=== PATIENT | female | born 1965 | race American Indian/Alaskan Native ===

== ENCOUNTER 2016-07-24 17:06 | Emergency (ER) | payer MEDICAID ==
[2016-07-24 18:21] LABS: Basophils % (Auto) 0.8 % (0.0-1.8); Eosinophils % (Auto) 2.5 % (0.0-4.3); Mean Corpuscular HGB Conc 31 % (30-34); Mean Corpuscular Volume 77 fl (79-97); Platelet Count 243 K/mm3 (140-440); Red Blood Count 5.36 M/mm3 (3.65-5.03); Red Cell Distribution Width 16.7 % (13.2-15.2); White Blood Count 7.3 K/mm3 (4.5-11.0)
[2016-07-24 18:29] LABS: Anion Gap 16 mmol/L; BUN/Creatinine Ratio 12.22; Blood Urea Nitrogen 11 mg/dL (7-17); Calcium 9.8 mg/dL (8.4-10.2); Carbon Dioxide 25 mmol/L (22-30); Chloride 102.5 mmol/L (98-107); Glucose 130 mg/dL (65-100); Potassium 4.6 mmol/L (3.6-5.0); Sodium 139 mmol/L (137-145)
[2016-07-24 18:32] LABS: Hematocrit 41.3 % (30.3-42.9); Hemoglobin 12.7 gm/dl (10.1-14.3); Mean Corpuscular Hemoglobin 24 pg (28-32)
[2016-07-24 18:33] LABS: Alanine Aminotransferase 29 units/L (7-56); Albumin 4.3 g/dL (3.9-5); Albumin/Globulin Ratio 1.3 %; Alkaline Phosphatase 62 units/L (35-129); Bilirubin,Total 0.2 mg/dL (0.1-1.2); Total Protein 7.6 g/dL (6.3-8.2)
[2016-07-24 19:04] LABS: Bilirubin,Direct < 0.2 mg/dL (0-0.2)
--- NOTE | 2016-07-25 07:23 | XRay Report ---
AP CHEST: HISTORY: chest pain AP view of the chest demonstrates a normal mediastinal and cardiac contour with clear lungs and normal bony and soft tissue structures. IMPRESSION: Unremarkable AP chest. No significant change since 01/25/14.
[2016-07-25] MEDS ORDERED: PERCOCET 5/325 PO ONE (07:47)
--- NOTE | 2016-07-25 07:51 | Emergency Department Report ---
ED General Adult HPI - General Chief complaint: Chest Pain Stated complaint: CHF/CHEST PAIN/LOW BP/LIVER TROUBLE Time Seen by Provider: 07/25/16 07:37 Source: patient Mode of arrival: Ambulatory Limitations: No Limitations - History of Present Illness Initial comments: 51-year-old female presents to the emergency department complaining of chest pain. Patient states that she went to her pain doctor yesterday and was told her blood pressure was low. She states her blood pressure was 100/33. She states they rechecked it a short time later and her systolic was 126. She received an injection in her SI joint. She states that her pain doctor called her that her eyes were yellow and she becomes emergency department. Patient states she began having some pain in the upper right part of her chest. Pain is described as sharp. Pain does not radiate. Patient denies associated symptoms. Patient is currently complaining of generalized pain. She states she has not had any of her nighttime or morning medications due to being in the emergency department. There are no other complaints. -: Gradual, days(s) (1) Location: chest, right Radiation: non-radiation Severity scale (0 -10): 7 Quality: aching Consistency: constant Improves with: none Worsens with: none Associated Symptoms: denies other symptoms Treatments Prior to Arrival: none - Related Data Home Medications Medication Instructions Recorded Confirmed Last Taken ALPRAZolam [Xanax TAB] 1 tab PO BID 06/15/13 10/18/15 10/17/15 Amlodipine Besylate [Norvasc] 10 mg PO DAILY 06/15/13 10/18/15 10/18/15 07:00 Carvedilol [Coreg] 6.25 tab PO BID 06/15/13 10/18/15 10/18/15 07:00 Gabapentin [Neurontin] 600 mg PO BID 06/15/13 10/18/15 10/17/15 [place] Carbonate 1 tab PO BID 06/15/13 10/18/15 10/18/15 07:00 Losartan [Cozaar] 1 tab PO DAILY 06/15/13 10/18/15 10/18/15 07:00 QUEtiapine [SEROquel] 400 mg PO DAILY 06/15/13 10/18/15 10/17/15 Topiramate [Topamax TAB] 100 mg PO DAILY 0210/18/15 10/18/15 07:00 oxyCODONE /ACETAMINOPHEN [Percocet 1 tab PO PRN 06/15/13 10/18/15 10/17/15 5/325 mg] Albuterol Sulfate [Proventil HFA] 1 puff INHALATION PRN 07/03/13 10/18/15 11:50 Aspirin [Aspirin BABY CHEW TAB] 1 tab PO DAILY 07/03/13 10/18/15 2 Weeks Ago Furosemide 1 tab PO DAILY 07/03/13 10/18/15 10/18/15 07:00 Lisinopril 1 tab PO DAILY 07/03/13 10/18/15 10/18/15 07:00 Potassium Chloride [K-Dur] 1 tab PO DAILY 07/03/13 10/18/15 10/18/15 07:00 Cetirizine HCl [ZyrTEC] 10 mg PO QDAY 10/18/15 10/18/15 10/17/15 Fluticasone [Flonase] 1 spray NS QDAY 10/18/15 10/18/15 10/18/15 07:00 Loratadine [Claritin] 10 mg PO DAILY 10/18/15 10/18/15 10/17/15 Meloxicam 1 tab PO QDAY 10/18/15 10/18/15 10/17/15 Omeprazole (Nf) [PriLOSEC (Nf)] 1 tab PO QDAY 10/18/15 10/18/15 10/17/15 Ranitidine HCl [Zantac 150 MG TAB] 150 mg PO QDAY 10/18/15 10/18/15 10/17/15 Sertraline [Zoloft] 100 mg PO QDAY 10/18/15 10/18/15 10/18/15 07:00 Allergies Allergy/AdvReac Type Severity Reaction Status Date / Time azithromycin Allergy Shortness Verified 10/18/15 08:54 of Breath meloxicam Allergy Rash Verified 07/24/16 17:20 cephalexin monohydrate AdvReac Itching Verified 06/16/13 07:40 [From Keflex] pregabalin [From Lyrica] AdvReac Unknown Verified 07/03/13 15:26 shellfish derived AdvReac GI UPSET Verified 06/16/13 07:40 Sulfa (Sulfonamide AdvReac Itching Verified 06/16/13 07:40 Antibiotics) tomato [Tomato] AdvReac Unknown Verified 06/16/13 07:40 ED Review of Systems ROS: Stated complaint: CHF/CHEST PAIN/LOW BP/LIVER TROUBLE Other details as noted in HPI Comment: All other systems reviewed and negative Cardiovascular: chest pain ED Past Medical Hx - Past Medical History Previous Medical History?: Yes Hx Hypertension: Yes (1992) Hx Heart Attack/AMI: Yes () Hx Congestive Heart Failure: Yes Hx Diabetes: Yes Hx GERD: Yes Hx Liver Disease: No Hx Renal Disease: No Hx Arthritis: Yes Hx Asthma: Yes (use inhaler daily) Hx COPD: Yes - Surgical History Hx Coronary Stent: Yes (2002) - Family History Family history: no significant - Social History Smoking Status: Never Smoker Substance Use Type: None - Medications Home Medications: Home Medications Medication Instructions Recorded Confirmed Last Taken Type ALPRAZolam [Xanax TAB] 1 tab PO BID 06/15/13 10/18/15 10/17/15 History Amlodipine Besylate [Norvasc] 10 mg PO DAILY 06/15/13 10/18/15 10/18/15 07:00 History Carvedilol [Coreg] 6.25 tab PO BID 06/15/13 10/18/15 10/18/15 07:00 History Gabapentin [Neurontin] 600 mg PO BID 06/15/13 10/18/15 10/17/15 History [place] Carbonate 1 tab PO BID 06/15/13 10/18/15 10/18/15 07:00 History Losartan [Cozaar] 1 tab PO DAILY 06/15/13 10/18/15 10/18/15 07:00 History QUEtiapine [SEROquel] 400 mg PO DAILY 06/15/13 10/18/15 10/17/15 History Topiramate [Topamax TAB] 100 mg PO DAILY 06/15/13 10/18/15 10/18/15 07:00 History oxyCODONE /ACETAMINOPHEN [Percocet 1 tab PO PRN 06/15/13 10/18/15 10/17/15 History 5/325 mg] Albuterol Sulfate [Proventil HFA] 1 puff INHALATION PRN 07/03/13 10/18/15 11:50 History Aspirin [Aspirin BABY CHEW TAB] 1 tab PO DAILY 07/03/13 10/18/15 2 Weeks Ago History Furosemide 1 tab PO DAILY 07/03/13 10/18/15 10/18/15 07:00 History Lisinopril 1 tab PO DAILY 07/03/13 10/18/15 10/18/15 07:00 History Potassium Chloride [K-Dur] 1 tab PO DAILY 07/03/13 10/18/15 10/18/15 07:00 History Cetirizine HCl [ZyrTEC] 10 mg PO QDAY 10/18/15 10/18/15 10/17/15 History Fluticasone [Flonase] 1 spray NS QDAY 10/18/15 10/18/15 10/18/15 07:00 History Loratadine [Claritin] 10 mg PO DAILY 10/18/15 10/18/15 10/17/15 History Meloxicam 1 tab PO QDAY 10/18/15 10/18/15 10/17/15 History Omeprazole (Nf) [PriLOSEC (Nf)] 1 tab PO QDAY 10/18/15 10/18/15 10/17/15 History Ranitidine HCl [Zantac 150 MG TAB] 150 mg PO QDAY 10/18/15 10/18/15 10/17/15 History Sertraline [Zoloft] 100 mg PO QDAY 10/18/15 10/18/15 10/18/15 07:00 History ED Physical Exam - General Limitations: No Limitations General appearance: alert, in no apparent distress - Head Head exam: Present: atraumatic, normocephalic - Eye Eye exam: Present: normal appearance, PERRL, EOMI. Absent: scleral icterus - ENT ENT exam: Present: normal exam, normal orophraynx, mucous membranes moist - Neck Neck exam: Present: normal inspection, full ROM. Absent: tenderness - Respiratory Respiratory exam: Present: normal lung sounds bilaterally. Absent: respiratory distress, chest wall tenderness - Cardiovascular Cardiovascular Exam: Present: regular rate, normal rhythm, normal heart sounds - GI/Abdominal GI/Abdominal exam: Present: soft, normal bowel sounds. Absent: distended, tenderness - Extremities Exam Extremities exam: Present: normal inspection, full ROM. Absent: tenderness - Back Exam Back exam: Present: normal inspection, full ROM. Absent: tenderness - Neurological Exam Neurological exam: Present: alert, oriented X3. Absent: motor sensory deficit - Skin Skin exam: Present: warm, dry, intact ED Course Vital Signs 07/24/16 07/25/16 07/25/16 17:21 00:01 08:10 Temperature 98.6 F 98.7 F Pulse Rate 83 93 H 75 Respiratory 20 14 18 Rate Blood Pressure 126/76 128/76 Blood Pressure 128/82 [Left] O2 Sat by Pulse 96 99 100 Oximetry ED Medical Decision Making - Lab Data Result diagrams: 07/24/16 17:57 07/24/16 17:57 - EKG Data -: EKG Interpreted by Tx EKG shows normal: sinus rhythm, axis, intervals, QRS complexes, ST-T waves Rate: normal - EKG Data When compared to previous EKG there are: previous EKG unavailable Interpretation: normal EKG - Radiology Data Radiology results: report reviewed, image reviewed Chest x-ray is read as no acute cardiopulmonary abnormality. - Medical Decision Making Lab and imaging results reviewed and discussed with the patient. I've spoken with Dr. Scott, cardiology. Patient has had a normal EKG and 2 negative troponins. Patient will be discharged home to follow up with her sas developer. - Differential Diagnosis atypical chest pain, ACS, chest wall pain Critical care attestation.: If time is entered above; I have spent that time in minutes in the direct care of this critically ill patient, excluding procedure time. ED Disposition Clinical Impression: Non-cardiac chest pain Disposition: DISCHARGED TO HOME OR SELFCARE Is pt being admited?: No Condition: Stable Instructions: Chest Pain (ED) Referrals: RACHEL CAREY MD [Primary Care Provider] - 3-5 Days Time of Disposition: 08:15
[2016-07-25 08:13] VITALS: BP 128/82
== END 2016-07-25 08:54 | disposition home or self-care (01) ==
LOC: ED 17:06
DX: R07.9 Chest pain, unspecified (principal); I25.2 Old myocardial infarction; E11.9 Type 2 diabetes mellitus without complications; K21.9 Gastro-esophageal reflux disease without esophagitis; J45.909 Unspecified asthma, uncomplicated; J44.9 Chronic obstructive pulmonary disease, unspecified
CPT/HCPCS: 36415; 71010; 80048; 80074; 84484; 85025; 93005; 93010; 99285

== ENCOUNTER 2016-08-19 12:20 | Emergency (ER) | payer MEDICAID ==
[2016-08-19] MEDS ORDERED: MORPHINE IV ONE (13:36)
[2016-08-19] MEDS ORDERED: ZOFRAN IV ONE (13:36)
--- NOTE | 2016-08-19 13:45 | Emergency Department Report ---
HPI - General Chief Complaint: Fall Time Seen by Provider: 08/19/16 13:24 - HPI HPI: Room 10 Patient is a 51-year-old female presenting with a chief complaint of left knee pain. The patient states at approximately 11:30 this morning she slipped on some water in the kitchen and fell to the ground striking her left knee. The patient states she was able to catch herself on a table and bounced back up but she developed pain and swelling to the left knee. Patient states she place an ice pack on the knee with pain continuing began to radiate up to her left hip. Patient now complains of pain in the left hip and left knee. The patient currently gives her pain a score of 7/10. The patient states she took an ibuprofen just prior to arrival Location: Left knee, left hip Duration: Constant since 11:30 Quality: Pain Severity: 710 Modifying factors: [see above] Context: [see above] Mode of transportation: EMS ED Past Medical Hx - Past Medical History Hx Hypertension: Yes (1992) Hx Heart Attack/AMI: Yes () Hx Congestive Heart Failure: Yes Hx Diabetes: Yes Hx GERD: Yes Hx Arthritis: Yes Hx Asthma: Yes (use inhaler daily) Hx COPD: Yes - Surgical History Hx Coronary Stent: Yes (2002) Additional Surgical History: left knee surgery - Family History Family history: no significant - Social History Smoking Status: Never Smoker Substance Use Type: None - Medications Home Medications: Home Medications Medication Instructions Recorded Confirmed Last Taken Type ALPRAZolam [Xanax TAB] 1 tab PO BID 06/15/13 10/18/15 10/17/15 History Amlodipine Besylate [Norvasc] 10 mg PO DAILY 06/15/13 10/18/15 10/18/15 07:00 History Carvedilol [Coreg] 6.25 tab PO BID 06/15/13 10/18/15 10/18/15 07:00 History Gabapentin [Neurontin] 600 mg PO BID 06/15/13 10/18/15 10/17/15 History [place] Carbonate 1 tab PO BID 06/15/13 10/18/15 10/18/15 07:00 History Losartan [Cozaar] 1 tab PO DAILY 06/15/13 10/18/15 10/18/15 07:00 History QUEtiapine [SEROquel] 400 mg PO DAILY 06/15/13 10/18/15 10/17/15 History Topiramate [Topamax TAB] 100 mg PO DAILY 06/15/13 10/18/15 10/18/15 07:00 History oxyCODONE /ACETAMINOPHEN [Percocet 1 tab PO PRN 06/15/13 10/18/15 10/17/15 History 5/325 mg] Albuterol Sulfate [Proventil HFA] 1 puff INHALATION PRN 07/03/13 10/18/15 11:50 History Aspirin [Aspirin BABY CHEW TAB] 1 tab PO DAILY 07/03/13 10/18/15 2 Weeks Ago History Furosemide 1 tab PO DAILY 07/03/13 10/18/15 10/18/15 07:00 History Lisinopril 1 tab PO DAILY 07/03/13 10/18/15 10/18/15 07:00 History Potassium Chloride [K-Dur] 1 tab PO DAILY 07/03/13 10/18/15 10/18/15 07:00 History Cetirizine HCl [ZyrTEC] 10 mg PO QDAY 10/18/15 10/18/15 10/17/15 History Fluticasone [Flonase] 1 spray NS QDAY 10/18/15 10/18/15 10/18/15 07:00 History Loratadine [Claritin] 10 mg PO DAILY 10/18/15 10/18/15 10/17/15 History Meloxicam 1 tab PO QDAY 10/18/15 10/18/15 10/17/15 History Omeprazole (Nf) [PriLOSEC (Nf)] 1 tab PO QDAY 10/18/15 10/18/15 10/17/15 History Ranitidine HCl [Zantac 150 MG TAB] 150 mg PO QDAY 10/18/15 10/18/15 10/17/15 History Sertraline [Zoloft] 100 mg PO QDAY 10/18/15 10/18/15 10/18/15 07:00 History Cyclobenzaprine [Flexeril] 10 mg PO TID PRN #14 tablet 08/19/16 Unknown Rx HYDROcodone/APAP 5-325 [[place] 1 - 2 each PO Q6HR PRN #14 tablet 08/19/16 Unknown Rx 5/325] ED Review of Systems ROS: Stated complaint: LT LEG/HIP PAIN Other details as noted in HPI Comment: All other systems reviewed and negative Constitutional: denies: chills, fever Eyes: denies: eye pain, eye discharge, vision change ENT: denies: ear pain, throat pain Respiratory: denies: cough, shortness of breath, wheezing Cardiovascular: denies: chest pain, palpitations Endocrine: no symptoms reported Gastrointestinal: denies: abdominal pain, nausea, diarrhea Genitourinary: denies: urgency, dysuria, discharge Musculoskeletal: joint swelling, arthralgia, myalgia Skin: denies: rash, lesions Neurological: denies: headache, weakness, paresthesias Psychiatric: denies: anxiety, depression Hematological/Lymphatic: denies: easy bleeding, easy bruising Physical Exam - Physical Exam Vital Signs: Vital Signs 08/19/16 12:27 Temperature 98.6 F Pulse Rate 83 Respiratory 20 Rate Blood Pressure 151/90 O2 Sat by Pulse 99 Oximetry Physical Exam: GENERAL: The patient is well-developed well-nourished female lying on stretcher sleeping and snoring not appearing to be in acute distress. Patient awakened with tactile stimuli HEENT: Normocephalic. Atraumatic. Extraocular motions are intact. Patient has moist mucous membranes. NECK: Supple. Trachea midline CHEST/LUNGS: There is no respiratory distress noted. HEART/CARDIOVASCULAR: Normal capillary refill skin of the left knee. No evidence of cardiovascular compromise SKIN: Subacute To the left knee as evidence of recent injury unrelated to today' s injury. There is no erythema. There is no rash. There is no diaphoresis. NEURO: The patient is awake, alert, and oriented. The patient is cooperative. The patient has normal speech MUSCULOSKELETAL: There is tenderness to palpation of the left hip, left knee and left tibia. There is mild swelling to the left knee. No laxity appreciated. Patient able to flex her left lower extremity at the knee and hip without difficulty. There is no limitation range of motion. ED Course Vital Signs 08/19/16 12:27 Temperature 98.6 F Pulse Rate 83 Respiratory 20 Rate Blood Pressure 151/90 O2 Sat by Pulse 99 Oximetry ED Medical Decision Making - Radiology Data Radiology results: image reviewed (left knee x-ray, left hip x-ray, left tib- fib x-ray) interpreted by me: Left knee [id number] in place, no acute fracture seen Left hip x-ray-no acute fractures Left tib-fib x-ray-no acute fracture - Differential Diagnosis patella fracture, knee sprain, anterior cruciate ligament tear, fibula [facility] Critical care attestation.: If time is entered above; I have spent that time in minutes in the direct care of this critically ill patient, excluding procedure time. ED Disposition Clinical Impression: Contusion of knee, left, Left knee pain, Hip pain, left Disposition: DISCHARGED TO HOME OR SELFCARE Is pt being admited?: No Does the pt Need Aspirin: No Condition: Stable Instructions: Arthralgia (ED) Additional Instructions: Return to the emergency department immediately should you develop worsening symptoms, fever, inability to tolerate food or liquid or any other concerns. Prescriptions: Cyclobenzaprine [Flexeril] 10 mg PO TID PRN #14 tablet PRN Reason: Muscle Spasm HYDROcodone/APAP 5-325 [[place] 5/325] 1 - 2 each PO Q6HR PRN #14 tablet PRN Reason: Pain Referrals: PRIMARY CAREMD [Primary Care Provider] - 3-5 Days TONIE MORGAN MD [Staff Physician] - 3-5 Days (Dr. Morgan is an orthopedic surgeon. Please follow up with him or your own orthopedic surgeon for further evaluation) Time of Disposition: 16:12
[2016-08-19 17:12] VITALS: BP 137/84
--- NOTE | 2016-08-20 09:12 | XRay Report ---
Right knee: Fall, pain. There is a total knee replacement. The femoral and tibial components are well-positioned and there is normal alignment of the knee. No evidence of loosening. The bones are well mineralized without fracture deformity. No swelling or joint effusion identified. Left tibia: As described above there is a total knee replacement. The tibial component is unremarkable. The visualized bones and soft tissues appear normal. Impression: No acute findings. LEFT HIP: The bony architecture is intact without evidence of fracture or dislocation. No significant soft tissue abnormality is seen. IMPRESSION: Normal left hip.
== END 2016-08-19 17:15 | disposition home or self-care (01) ==
LOC: ED 12:20
DX: S80.02XA Contusion of left knee, initial encounter (principal); M25.552 Pain in left hip; I25.2 Old myocardial infarction; I50.9 Heart failure, unspecified; E11.9 Type 2 diabetes mellitus without complications; K21.9 Gastro-esophageal reflux disease without esophagitis; M19.90 Unspecified osteoarthritis, unspecified site; J45.909 Unspecified asthma, uncomplicated; I10 Essential (primary) hypertension; J44.9 Chronic obstructive pulmonary disease, unspecified; Z79.82 Long term (current) use of aspirin; W01.0XXA Fall on same level from slipping, tripping and stumbling without subsequent striking against object, initial encounter; Y93.89 Activity, other specified; Y92.89 Other specified places as the place of occurrence of the external cause; Y99.8 Other external cause status; Z88.6 Allergy status to analgesic agent; Z88.8 Allergy status to other drugs, medicaments and biological substances
CPT/HCPCS: 29505; 73502; 73562; 73590; 96374; 96375; 99284; J2270; J2405

== ENCOUNTER 2016-10-07 11:00 | Emergency (ER) | payer MEDICAID ==
[2016-10-07 11:18] VITALS: BP 141/106
[2016-10-07 11:50] LABS: Basophils % (Auto) 1.3 % (0.0-1.8); Eosinophils % (Auto) 7.4 % (0.0-4.3); Hematocrit 40.7 % (30.3-42.9); Hemoglobin 13.1 gm/dl (10.1-14.3); Mean Corpuscular HGB Conc 32 % (30-34); Mean Corpuscular Volume 76 fl (79-97); Platelet Count 246 K/mm3 (140-440); Red Blood Count 5.35 M/mm3 (3.65-5.03); White Blood Count 6.4 K/mm3 (4.5-11.0)
[2016-10-07 11:56] LABS: Mean Corpuscular Hemoglobin 24 pg (28-32)
[2016-10-07 12:03] LABS: Anion Gap 19 mmol/L; BUN/Creatinine Ratio 13.75; Blood Urea Nitrogen 11 mg/dL (7-17); Calcium 8.9 mg/dL (8.4-10.2); Carbon Dioxide 22 mmol/L (22-30); Sodium 140 mmol/L (137-145)
[2016-10-07 12:11] LABS: Glucose 110 mg/dL (65-100)
== END 2016-10-07 16:09 | disposition left against medical advice (07) ==
LOC: ED 11:00
DX: M79.605 Pain in left leg (principal); M79.604 Pain in right leg; I50.9 Heart failure, unspecified; J44.9 Chronic obstructive pulmonary disease, unspecified; Z53.21 Procedure and treatment not carried out due to patient leaving prior to being seen by health care provider
CPT/HCPCS: 36415; 80048; 85025

== ENCOUNTER 2017-04-16 00:13 | Inpatient (IN) | payer MEDICAID ==
[2017-04-16 02:35] LABS: Basophils % (Auto) 1.1 % (0.0-1.8); Hematocrit 37.7 % (30.3-42.9); Hemoglobin 12.3 gm/dl (10.1-14.3); Mean Corpuscular HGB Conc 33 % (30-34); Mean Corpuscular Volume 79 fl (79-97); Platelet Count 239 K/mm3 (140-440); Red Blood Count 4.77 M/mm3 (3.65-5.03); Red Cell Distribution Width 15.3 % (13.2-15.2); White Blood Count 11.2 K/mm3 (4.5-11.0)
[2017-04-16 03:35] LABS: Bilirubin,Urine NEG (Negative); Blood,Urine MOD (Negative); Ketones,Urine NEG (Negative); Leukocyte Esterase,Urine NEG (Negative); Mucus,Urine FEW /HPF; Nitrite,Urine NEG (Negative); Protein,Urine <15 mg/dL mg/dL (Negative); Urobilinogen,Urine < 2.0 mg/dL (<2.0)
[2017-04-16 03:37] LABS: Mean Corpuscular Hemoglobin 26 pg (28-32)
[2017-04-16 04:17] LABS: Anion Gap 14 mmol/L; BUN/Creatinine Ratio 13; Blood Urea Nitrogen 9 mg/dL (7-17); Calcium 9.1 mg/dL (8.4-10.2); Carbon Dioxide 27 mmol/L (22-30); Chloride 98.1 mmol/L (98-107); Glucose 115 mg/dL (65-100); Potassium 3.9 mmol/L (3.6-5.0); Sodium 135 mmol/L (137-145)
[2017-04-16] MEDS ORDERED: DILAUDID IV ONE ×2 (06:35→08:00)
[2017-04-16] MEDS ORDERED: PROTONIX IV ONE (06:35)
[2017-04-16] MEDS ORDERED: ZOFRAN IV ONE (06:35)
[2017-04-16] MEDS ORDERED: NACL 0.9% 250ML 250 ML IV ONE (06:36)
--- NOTE | 2017-04-16 07:29 | Emergency Department Report ---
ED Female HPI - General Chief complaint: Vaginal Bleeding Stated complaint: VAGINAL BLEEDING Time Seen by Provider: 04/16/17 06:15 Source: patient Mode of arrival: Wheelchair Limitations: Physical Limitation - History of Present Illness Initial comments: 51-year-old female with a past medical history of asthma, cancer (colon polyps) , PUD (on Prilosec), hemorrhoids, CHF, COPD on home oxygen, diabetes, GERD, hypertension, and sleep apnea presents to the hospital complaints of vomiting blood and bloody stools 1 day positive melena reported previously. Patient takes aspirin 325 mg daily. Patient state prior to arrival yesterday she had no episodes of coughing with blood streaked vomitus then followed by vomiting bright red blood. While in the ED patient went to the bathroom and has a feeling to pass gas. When she did she had a lot of bright red blood per rectum. Patient felt lightheaded after bowel movement and subsequently fell. Patient complains of upper abdominal pain as rate is 7/10 in intensity and worse with palpation. No fever reported. - Related Data Home Medications Medication Instructions Recorded Confirmed Last Taken ALPRAZolam [Xanax TAB] 2 tab PO BID 06/15/13 04/16/17 10/17/15 Amlodipine Besylate [Norvasc] 10 mg PO DAILY 06/15/13 04/16/17 10/18/15 07:00 Carvedilol [Coreg] 6.25 tab PO BID 06/15/13 04/16/17 10/18/15 07:00 Gabapentin [Neurontin] 600 mg PO BID 06/15/13 04/16/17 10/17/15 [place] Carbonate 1 tab PO BID 06/15/13 04/16/17 10/18/15 07:00 Losartan [Cozaar] 1 tab PO DAILY 06/15/13 04/16/17 10/18/15 07:00 QUEtiapine [SEROquel] 400 mg PO BID 06/15/13 04/16/17 10/17/15 Topiramate [Topamax TAB] 100 mg PO DAILY 06/15/13 04/16/17 10/18/15 07:00 Albuterol Sulfate [Proventil HFA] 1 puff INHALATION PRN 07/03/13 04/16/17 11:50 Aspirin [Aspirin BABY CHEW TAB] 1 tab PO DAILY 07/03/13 04/16/17 2 Weeks Ago ~10/04/15 Furosemide 1 tab PO DAILY 07/03/13 04/16/17 10/18/15 07:00 Lisinopril 1 tab PO DAILY 07/03/13 04/16/17 10/18/15 07:00 Potassium Chloride [K-Dur] 1 tab PO DAILY 07/03/13 04/16/17 10/18/15 07:00 Cetirizine HCl [ZyrTEC] 10 mg PO QDAY 10/18/15 04/16/17 10/17/15 Fluticasone [Flonase] 1 spray NS QDAY 10/18/15 04/16/17 10/18/15 07:00 Loratadine [Claritin] 10 mg PO DAILY 10/18/15 04/16/17 10/17/15 Omeprazole (Nf) [PriLOSEC (Nf)] 1 tab PO QDAY 10/18/15 04/16/17 10/17/15 Ranitidine HCl [Zantac 150 MG TAB] 150 mg PO QDAY 10/18/15 04/16/17 10/17/15 Sertraline [Zoloft] 100 mg PO QDAY 10/18/15 04/16/17 10/18/15 07:00 Fluticasone/Salmeterol [Advair 1 each IH BID 04/16/17 04/16/17 Unknown 500-50 Diskus] Tizanidine HCl [Zanaflex] 4 mg PO QID 04/16/17 04/16/17 Unknown oxyCODONE ER [OxyCONTIN ER TAB] 20 mg PO QID 04/16/17 04/16/17 Unknown Previous Rx's Medication Instructions Recorded Last Taken Type Cyclobenzaprine [Flexeril] 10 mg PO TID PRN #14 tablet 08/19/16 Unknown Rx Allergies Allergy/AdvReac Type Severity Reaction Status Date / Time azithromycin Allergy Shortness Verified 08/19/16 12:34 of Breath meloxicam Allergy Rash Verified 08/19/16 12:34 cephalexin monohydrate AdvReac Itching Verified 08/19/16 12:34 [From Keflex] pregabalin [From Lyrica] AdvReac Unknown Verified 08/19/16 12:34 shellfish derived AdvReac GI UPSET Verified 08/19/16 12:34 Sulfa (Sulfonamide AdvReac Itching Verified 08/19/16 12:34 Antibiotics) tomato [Tomato] AdvReac Unknown Verified 08/19/16 12:34 ED Review of Systems ROS: Stated complaint: VAGINAL BLEEDING Other details as noted in HPI Comment: All other systems reviewed and negative Other: Constitutional: No fevers chills Eyes: No eye pain visual changes ENT: No ear pain or throat pain Neck: Denies pain Respiratory: Denies cough wheezing shortness of breath Cardiovascular: Denies chest pain, palpitations GI: As per HPI : Denies dysuria Musculoskeletal: Right hip pain from fall on April 10 Skin: Denies rash, lesions, erythema Neurologic: Denies focal numbness, weakness, + damon Psychiatric: Denies suicidal ideation, hallucinations ED Past Medical Hx - Past Medical History Hx Hypertension: Yes (1992) Hx Heart Attack/AMI: Yes () Hx Congestive Heart Failure: Yes (March 2016) Hx Diabetes: Yes Hx GERD: Yes (peptic ulcer) Hx Liver Disease: No Hx Renal Disease: No Hx of Cancer: Yes (colon polyps 2015) Hx Arthritis: Yes Hx Asthma: Yes (use inhaler daily) Hx COPD: Yes Additional medical history: Sleep apnea using CPAP machine at night, Home 02 concentrated oxygen 2 liters, Spinal problems buldging disc, and hip problems, gets injections at [facility] with Dr. Hernández, wants to report her psychiatrist is Dr. Mynor Urrutia. Hemorrhoids - Surgical History Hx Coronary Stent: Yes (2002 (pt states she has 2 stents)) Additional Surgical History: Hysterectomy. left knee surgery - Social History Smoking Status: Never Smoker - Medications Home Medications: Home Medications Medication Instructions Recorded Confirmed Last Taken Type ALPRAZolam [Xanax TAB] 2 tab PO BID 06/15/13 04/16/17 10/17/15 History Amlodipine Besylate [Norvasc] 10 mg PO DAILY 06/15/13 04/16/17 10/18/15 07:00 History Carvedilol [Coreg] 6.25 tab PO BID 06/15/13 04/16/17 10/18/15 07:00 History Gabapentin [Neurontin] 600 mg PO BID 06/15/13 04/16/17 10/17/15 History [place]um[place] Carbonate 1 tab PO BID 06/15/13 04/16/17 10/18/15 07:00 History Losartan [Cozaar] 1 tab PO DAILY 06/15/13 04/16/17 10/18/15 07:00 History QUEtiapine [SEROquel] 400 mg PO BID 06/15/13 04/16/17 10/17/15 History Topiramate [Topamax TAB] 100 mg PO DAILY 06/15/13 04/16/17 10/18/15 07:00 History Albuterol Sulfate [Proventil HFA] 1 puff INHALATION PRN 07/03/13 04/16/17 11:50 History Aspirin [Aspirin BABY CHEW TAB] 1 tab PO DAILY 07/03/13 04/16/17 2 Weeks Ago History ~10/04/15 Furosemide 1 tab PO DAILY 07/03/13 04/16/17 10/18/15 07:00 History Lisinopril 1 tab PO DAILY 07/03/13 04/16/17 10/18/15 07:00 History Potassium Chloride [K-Dur] 1 tab PO DAILY 07/03/13 04/16/17 10/18/15 07:00 History Cetirizine HCl [ZyrTEC] 10 mg PO QDAY 10/18/15 04/16/17 10/17/15 History Fluticasone [Flonase] 1 spray NS QDAY 10/18/15 04/16/17 10/18/15 07:00 History Loratadine [Claritin] 10 mg PO DAILY 10/18/15 04/16/17 10/17/15 History Omeprazole (Nf) [PriLOSEC (Nf)] 1 tab PO QDAY 10/18/15 04/16/17 10/17/15 History Ranitidine HCl [Zantac 150 MG TAB] 150 mg PO QDAY 10/18/15 04/16/17 10/17/15 History Sertraline [Zoloft] 100 mg PO QDAY 10/18/15 04/16/17 10/18/15 07:00 History Cyclobenzaprine [Flexeril] 10 mg PO TID PRN #14 tablet 08/19/16 04/16/17 Unknown Rx Fluticasone/Salmeterol [Advair 1 each IH BID 04/16/17 04/16/17 Unknown History 500-50 Diskus] Tizanidine HCl [Zanaflex] 4 mg PO QID 04/16/17 04/16/17 Unknown History oxyCODONE ER [OxyCONTIN ER TAB] 20 mg PO QID 04/16/17 04/16/17 Unknown History ED Physical Exam - General Limitations: Physical Limitation - Other Other exam information: General: No limitations, patient is alert in no acute distress Head exam: Atraumatic, normocephalic Eyes exam: Normal appearance, nonicteric sclera, pink conjunctivae ENT: Moist mucous membrane, normal oropharynx Neck exam: Normal inspection, full range of motion, no meningismus nontender Respiratory exam: Clear to auscultation bilateral, no wheezes, rales, crackles Cardiovascular: Normal rate and rhythm, normal heart sounds Abdomen: Soft, nondistended, right upper quadrant and epigastric tenderness also mild right lower quadrant Rectal: No external hemorrhoids, positive gross blood without stool or melena Extremity: Full range of motion normal inspection no deformity Back: Normal Inspection, full range of motion, no tenderness Neurologic: Alert, oriented x3, cranial nerves intact, no motor or sensory deficit Psychiatric: normal affect, normal mood Skin: Warm, dry, intact ED Course Vital Signs 04/16/17 04/16/17 04/16/17 00:47 01:49 03:29 Temperature 97.6 F 97.6 F Pulse Rate 94 H 94 H 92 H Respiratory 19 19 37 H Rate Blood Pressure 139/85 139/85 113/77 O2 Sat by Pulse 95 95 Oximetry 04/16/17 04/16/17 04/16/17 03:30 03:35 03:45 Temperature Pulse Rate 91 H 92 H Respiratory 30 H 18 17 Rate Blood Pressure 113/77 105/44 O2 Sat by Pulse 97 Oximetry 04/16/17 04/16/17 04/16/17 04:00 04:15 04:30 Temperature Pulse Rate 92 H 90 105 H Respiratory 16 15 27 H Rate Blood Pressure 105/44 100/46 100/46 O2 Sat by Pulse 99 Oximetry 04/16/17 04/16/17 04/16/17 04:45 05:00 05:15 Temperature Pulse Rate 89 90 88 Respiratory 20 17 19 Rate Blood Pressure 100/53 100/53 114/64 O2 Sat by Pulse 99 99 98 Oximetry 04/16/17 04/16/17 04/16/17 05:30 05:46 06:00 Temperature Pulse Rate 88 Respiratory 17 33 H 30 H Rate Blood Pressure 114/64 108/66 102/60 O2 Sat by Pulse 99 95 98 Oximetry 04/16/17 04/16/17 04/16/17 06:15 06:30 06:46 Temperature Pulse Rate 105 H 88 Respiratory 31 H 17 27 H Rate Blood Pressure 101/56 114/64 102/65 O2 Sat by Pulse 95 99 98 Oximetry 04/16/17 07:00 Temperature Pulse Rate 88 Respiratory 19 Rate Blood Pressure 102/65 O2 Sat by Pulse 100 Oximetry - Reevaluation(s) Reevaluation #1: 04/16/17 07:37 Small IV fluid bolus initiated and Protonix ordered. Patient requesting pain medication for headache. dilaudid zofran ordered . . . pt is in pain management. - Consultations Consultation #2: 04/16/17 07:39 Dr. Villafuerte, on-call GI consult recommended nothing by mouth now for endoscopy ED Medical Decision Making - Lab Data Result diagrams: 04/16/17 02:14 04/16/17 03:47 Lab Results 04/16/17 04/16/17 04/16/17 Range/Units 02:14 02:15 03:14 WBC 11.2 H (4.5-11.0) K/mm3 RBC 4.77 (3.65-5.03) M/mm3 Hgb 12.3 (10.1-14.3) gm/dl Hct 37.7 (30.3-42.9) % MCV 79 (79-97) fl MCH 26 L (28-32) pg MCHC 33 (30-34) % RDW 15.3 H (13.2-15.2) % Plt Count 239 (140-440) K/mm3 Lymph % (Auto) 28.5 (13.4-35.0) % Weld % (Auto) 8.2 H (0.0-7.3) % Eos % (Auto) 8.0 H (0.0-4.3) % Baso % (Auto) 1.1 (0.0-1.8) % Lymph # 3.2 (1.2-5.4) K/mm3 Weld # 0.9 H (0.0-0.8) K/mm3 Eos # 0.9 H (0.0-0.4) K/mm3 Baso # 0.1 (0.0-0.1) K/mm3 Seg Neutrophils % 54.2 (40.0-70.0) % Seg Neutrophils # 6.1 (1.8-7.7) K/mm3 Sodium (137-145) mmol/L Potassium (3.6-5.0) mmol/L Chloride (98-107) mmol/L Carbon Dioxide (22-30) mmol/L Anion Gap mmol/L BUN (7-17) mg/dL Creatinine (0.7-1.2) mg/dL Estimated GFR ml/min BUN/Creatinine Ratio % Glucose (65-100) mg/dL Calcium (8.4-10.2) mg/dL Urine Color Yellow (Yellow) Urine Turbidity Clear (Clear) Urine pH 5.0 (5.0-7.0) Ur Specific [place] 1.018 (1.003-1.030) Urine Protein <15 mg/dl (Negative) mg/dL Urine Glucose (UA) Neg (Negative) mg/dL Urine Ketones Neg (Negative) mg/dL Urine Blood Mod (Negative) Urine Nitrite Neg (Negative) Urine Bilirubin Neg (Negative) Urine Urobilinogen < 2.0 (<2.0) mg/dL Ur Leukocyte Esterase Neg (Negative) Urine WBC (Auto) 3.0 (0.0-6.0) /HPF Urine RBC (Auto) 2.0 (0.0-6.0) /HPF U Epithel Cells (Auto) < 1.0 (0-13.0) /HPF Urine Mucus Few /HPF Blood Type O POSITIVE Antibody Screen Negative 04/16/17 Range/Units 03:47 WBC (4.5-11.0) K/mm3 RBC (3.65-5.03) M/mm3 Hgb (10.1-14.3) gm/dl Hct (30.3-42.9) % MCV (79-97) fl MCH (28-32) pg MCHC (30-34) % RDW (13.2-15.2) % Plt Count (140-440) K/mm3 Lymph % (Auto) (13.4-35.0) % Weld % (Auto) (0.0-7.3) % Eos % (Auto) (0.0-4.3) % Baso % (Auto) (0.0-1.8) % Lymph # (1.2-5.4) K/mm3 Weld # (0.0-0.8) K/mm3 Eos # (0.0-0.4) K/mm3 Baso # (0.0-0.1) K/mm3 Seg Neutrophils % (40.0-70.0) % Seg Neutrophils # (1.8-7.7) K/mm3 Sodium 135 L (137-145) mmol/L Potassium 3.9 (3.6-5.0) mmol/L Chloride 98.1 (98-107) mmol/L Carbon Dioxide 27 (22-30) mmol/L Anion Gap 14 mmol/L BUN 9 (7-17) mg/dL Creatinine 0.7 (0.7-1.2) mg/dL Estimated GFR > 60 ml/min BUN/Creatinine Ratio 13 % Glucose 115 H (65-100) mg/dL Calcium 9.1 (8.4-10.2) mg/dL Urine Color (Yellow) Urine Turbidity (Clear) Urine pH (5.0-7.0) Ur Specific [place] (1.003-1.030) Urine Protein (Negative) mg/dL Urine Glucose (UA) (Negative) mg/dL Urine Ketones (Negative) mg/dL Urine Blood (Negative) Urine Nitrite (Negative) Urine Bilirubin (Negative) Urine Urobilinogen (<2.0) mg/dL Ur Leukocyte Esterase (Negative) Urine WBC (Auto) (0.0-6.0) /HPF Urine RBC (Auto) (0.0-6.0) /HPF U Epithel Cells (Auto) (0-13.0) /HPF Urine Mucus /HPF Blood Type Antibody Screen - EKG Data -: EKG Interpreted by Hi EKG shows normal: sinus rhythm, axis (36), QRS complexes (86), ST-T waves (no stemi/t inv) Rate: normal (85) - Radiology Data Radiology results: image reviewed (read by radiologist chest xray: unremarkable) - Medical Decision Making Plan to admit patient to hospital further GI evaluation. Nothing by mouth for endoscopy recommended by Dr. Villafuerte - Differential Diagnosis diveritulosis, peptic ulcer disease, cancer, hemorrhoids, anemia Critical Care Time: No Critical care attestation.: If time is entered above; I have spent that time in minutes in the direct care of this critically ill patient, excluding procedure time. ED Disposition Clinical Impression: Rectal bleeding, Hematemesis, Abdominal pain, History of ulcer disease, COPD ( chronic obstructive pulmonary disease), Diabetes, CHF (congestive heart failure) , Sleep apnea, Hx of heart artery stent Disposition: OP ADMIT IP TO THIS HOSP Is pt being admited?: Yes Condition: Stable Time of Disposition: 07:41 (hospitalist/hasset)
--- NOTE | 2017-04-16 07:37 | XRay Report ---
AP CHEST: HISTORY: chest pain AP view of the chest demonstrates a normal mediastinal and cardiac contour with clear lungs and normal bony and soft tissue structures. IMPRESSION: Unremarkable AP chest.
[2017-04-16 07:49] LABS: INR 0.98 (0.87-1.13)
[2017-04-16 07:50] LABS: Partial Thromboplastin Time 32.9 Sec. (24.2-36.6)
[2017-04-16] MEDS ORDERED: ATIVAN IV ONE (08:15)
--- NOTE | 2017-04-16 08:49 | History and Physical Report ---
<CLIFF FARRAR - Last Filed: 04/16/17 14:07> History of Present Illness Date of examination: 04/16/17 Date of admission: 04/16/2017 Chief complaint: Vomiting blood and rectal bleeding. History of present illness: Patient is a 51-year-old female with a past medical history of asthma, cancer ( colon polyps), PUD (on Prilosec), hemorrhoids, CHF, COPD on home oxygen, diabetes, GERD, hypertension, and sleep apnea presents to the hospital complaints of vomiting blood and bloody stools 1 day positive melena reported previously. Patient reports having coughed up scant amount of blood streaked sputum and multiple episodes rectal bleeding with bright red blood and dark clots since yesterday. Also complains intermittent generalized abdominal pain that initially felt like gas pains but it has now progressed to being nearly constant.The pain is described as a constant dull, diffuse pain that intermittently becomes sharp and well localized. The sharp pain tends to occur in different locations at different times. The intensity of the pain has been increasing since this morning and on pain scale she now rates the pain at 8 out of 10; worse with palpation. Patient has multiple hemorrhoids. She denies fever , wt loss, CP, dizziness, vomiting, diarrhea, or constipation. Patient very anxious and crying currently and agitated. Past History Past Medical History: COPD (on home oxygen,), diabetes, GERD, heart failure ( asthma, cancer (colon polyps), PUD (on Prilosec), hemorrhoids, diabetes, GERD , hypertension, and sleep apnea ), hypertension, other ( asthma, cancer (colon polyps), PUD (on Prilosec), hemorrhoids, CHF, COPD on home oxygen, and sleep apnea ) Past Surgical History: No surgical history Social history: denies: smoking, alcohol abuse Family history: hypertension Medications and Allergies Allergies Allergy/AdvReac Type Severity Reaction Status Date / Time azithromycin Allergy Shortness Verified 08/19/16 12:34 of Breath meloxicam Allergy Rash Verified 08/19/16 12:34 cephalexin monohydrate AdvReac Itching Verified 08/19/16 12:34 [From Keflex] pregabalin [From Lyrica] AdvReac Unknown Verified 08/19/16 12:34 shellfish derived AdvReac GI UPSET Verified 04/16/17 12:34 Sulfa (Sulfonamide AdvReac Itching Verified 08/19/16 12:34 Antibiotics) tomato [Tomato] AdvReac Unknown Verified 08/19/16 12:34 Home Medications Medication Instructions Recorded Confirmed Last Taken Type ALPRAZolam [Xanax TAB] 2 tab PO BID 06/15/13 04/16/17 10/17/15 History Carvedilol [Coreg] 6.25 tab PO BID 06/15/13 04/16/17 10/18/15 07:00 History Gabapentin [Neurontin] 600 mg PO BID 06/15/13 04/16/17 10/17/15 History [place] Carbonate 1 tab PO BID 06/15/13 04/16/17 10/18/15 07:00 History Losartan [Cozaar] 1 tab PO DAILY 06/15/13 04/16/17 10/18/15 07:00 History QUEtiapine [SEROquel] 400 mg PO BID 06/15/13 04/16/17 10/17/15 History Topiramate [Topamax TAB] 100 mg PO DAILY 06/15/13 04/16/17 10/18/15 07:00 History Albuterol Sulfate [Proventil HFA] 1 puff INHALATION PRN 07/03/13 04/16/17 11:50 History Aspirin [Aspirin BABY CHEW TAB] 1 tab PO DAILY 07/03/13 04/16/17 2 Weeks Ago History ~10/04/15 Furosemide 1 tab PO DAILY 07/03/13 04/16/17 10/18/15 07:00 History Potassium Chloride [K-Dur] 1 tab PO DAILY 07/03/13 04/16/17 10/18/15 07:00 History Cetirizine HCl [ZyrTEC] 10 mg PO QDAY 10/18/15 04/16/17 10/17/15 History Fluticasone [Flonase] 1 spray NS QDAY 10/18/15 04/16/17 10/18/15 07:00 History Loratadine [Claritin] 10 mg PO DAILY 10/18/15 04/16/17 10/17/15 History Ranitidine HCl [Zantac 150 MG TAB] 150 mg PO QDAY 10/18/15 04/16/17 10/17/15 History Sertraline [Zoloft] 100 mg PO QDAY 10/18/15 04/16/17 10/18/15 07:00 History Cyclobenzaprine [Flexeril 10 MG 10 mg PO TID PRN #14 tablet 08/19/16 04/16/17 Unknown Rx TAB] Fluticasone/Salmeterol [Advair 1 each IH BID 04/16/17 04/16/17 Unknown History 500-50 Diskus] Tizanidine HCl [Zanaflex] 4 mg PO QID 04/16/17 04/16/17 Unknown History oxyCODONE ER [OxyCONTIN ER TAB] 20 mg PO QID 04/16/17 04/16/17 Unknown History Hydrocortisone 2.5% [Proctosol-Hc] 1 applic WI Q8H PRN #14 tube 04/17/17 Unknown Rx amLODIPine [Norvasc] 10 mg PO DAILY #30 tablet 04/17/17 Unknown Rx Active Meds: Active Medications Acetaminophen (Tylenol) 650 mg PO Q4H PRN PRN Reason: Pain MILD(1-3)/Fever >100.5/NICHOLAS Bisacodyl (Dulcolax) 10 mg WI QDAY PRN PRN Reason: Constipation unrelieved by MOM Enoxaparin Sodium (Lovenox) 40 mg SUB-Q QDAY APRIL Morphine Sulfate (Morphine) 2 mg IV Q4H PRN PRN Reason: Pain, Moderate (4-6) Review of Systems Constitutional: no weight loss, no weight gain, no fever Ears, nose, mouth and throat: no ear discharge, no tinnitis, no decreased hearing Breasts: no swelling, no mass Cardiovascular: no edema, no syncope, no lightheadedness Respiratory: no excessive sputum, no hemoptysis, no shortness of breath, no dyspnea on exertion Gastrointestinal: nausea, vomiting, hematemesis, melena Rectal: no incontinence, no bleeding Musculoskeletal: no shooting arm pain, no arm numbness/tingling, no low back pain, no shooting leg pain Integumentary: no sores, no wounds, no jaundice Neurological: no weakness, no parathesias, no numbness, no tingling Psychiatric: no change in sleep habits, no sleep disturbances, no insomnia, no hypersomnia Endocrine: no heat intolerance, no polyphagia, no excessive thirst Hematologic/Lymphatic: no easy bruising, no easy bleeding Allergic/Immunologic: no urticaria, no allergic rhinitis Exam - Constitutional Vitals: Temp Pulse Resp BP Pulse Ox 97.6 F 88 18 102/65 100 04/16/17 01:49 04/16/17 07:00 04/16/17 08:38 04/16/17 07:00 04/16/17 07:00 General appearance: Present: no acute distress - EENT Eyes: Present: PERRL ENT: hearing intact - Neck Neck: Present: supple - Respiratory Respiratory effort: normal Respiratory: bilateral: CTA - Cardiovascular Rhythm: regular Heart Sounds: Present: S1 & S2 - Abdominal General gastrointestinal: Present: soft, non-tender Female genitourinary: Present: normal - Rectal Rectal Exam: hemorrhoids - Integumentary Integumentary: Present: clear, warm, dry - Musculoskeletal Musculoskeletal: strength equal bilaterally - Psychiatric Psychiatric: agitated, other (anxious) - Neurologic Neurologic: CNII-XII intact - Allied Health Allied health notes reviewed: nursing Results - Labs CBC & Chem 7: 04/16/17 12:01 04/16/17 03:47 Labs: Laboratory Last Values WBC 11.2 K/mm3 (4.5-11.0) H 04/16/17 02:14 RBC 4.77 M/mm3 (3.65-5.03) 04/16/17 02:14 Hgb 12.3 gm/dl (10.1-14.3) 04/16/17 02:14 Hct 37.7 % (30.3-42.9) 04/16/17 02:14 MCV 79 fl (79-97) 04/16/17 02:14 MCH 26 pg (28-32) L 04/16/17 02:14 MCHC 33 % (30-34) 04/16/17 02:14 RDW 15.3 % (13.2-15.2) H 04/16/17 02:14 Plt Count 239 K/mm3 (140-440) 04/16/17 02:14 Lymph % (Auto) 28.5 % (13.4-35.0) 04/16/17 02:14 Boyle % (Auto) 8.2 % (0.0-7.3) H 04/16/17 02:14 Eos % (Auto) 8.0 % (0.0-4.3) H 04/16/17 02:14 Baso % (Auto) 1.1 % (0.0-1.8) 04/16/17 02:14 Lymph # 3.2 K/mm3 (1.2-5.4) 04/16/17 02:14 Boyle # 0.9 K/mm3 (0.0-0.8) H 04/16/17 02:14 Eos # 0.9 K/mm3 (0.0-0.4) H 04/16/17 02:14 Baso # 0.1 K/mm3 (0.0-0.1) 04/16/17 02:14 Seg Neutrophils % 54.2 % (40.0-70.0) 04/16/17 02:14 Seg Neutrophils # 6.1 K/mm3 (1.8-7.7) 04/16/17 02:14 PT 13.5 Sec. (12.2-14.9) 04/16/17 07:14 INR 0.98 (0.87-1.13) 04/16/17 07:14 APTT 32.9 Sec. (24.2-36.6) 04/16/17 07:14 Sodium 135 mmol/L (137-145) L 04/16/17 03:47 Potassium 3.9 mmol/L (3.6-5.0) 04/16/17 03:47 Chloride 98.1 mmol/L (98-107) 04/16/17 03:47 Carbon Dioxide 27 mmol/L (22-30) 04/16/17 03:47 Anion Gap 14 mmol/L 04/16/17 03:47 BUN 9 mg/dL (7-17) 04/16/17 03:47 Creatinine 0.7 mg/dL (0.7-1.2) 04/16/17 03:47 Estimated GFR > 60 ml/min 04/16/17 03:47 BUN/Creatinine Ratio 13 % 04/16/17 03:47 Glucose 115 mg/dL (65-100) H 04/16/17 03:47 Calcium 9.1 mg/dL (8.4-10.2) 04/16/17 03:47 Urine Color Yellow (Yellow) 04/16/17 03:14 Urine Turbidity Clear (Clear) 04/16/17 03:14 Urine pH 5.0 (5.0-7.0) 04/16/17 03:14 Ur Specific [place] 1.018 (1.003-1.030) 04/16/17 03:14 Urine Protein <15 mg/dl mg/dL (Negative) 04/16/17 03:14 Urine Glucose (UA) Neg mg/dL (Negative) 04/16/17 03:14 Urine Ketones Neg mg/dL (Negative) 04/16/17 03:14 Urine Blood Mod (Negative) 04/16/17 03:14 Urine Nitrite Neg (Negative) 04/16/17 03:14 Urine Bilirubin Neg (Negative) 04/16/17 03:14 Urine Urobilinogen < 2.0 mg/dL (<2.0) 04/16/17 03:14 Ur Leukocyte Esterase Neg (Negative) 04/16/17 03:14 Urine WBC (Auto) 3.0 /HPF (0.0-6.0) 04/16/17 03:14 Urine RBC (Auto) 2.0 /HPF (0.0-6.0) 04/16/17 03:14 U Epithel Cells (Auto) < 1.0 /HPF (0-13.0) 04/16/17 03:14 Urine Mucus Few /HPF 04/16/17 03:14 Blood Type O POSITIVE 04/16/17 02:15 Antibody Screen Negative 04/16/17 02:15 - Imaging and Cardiology Chest x-ray: image reviewed (unremarkable ) Assessment and Plan Assessment and plan: Patient is a 51-year-old female with a past medical history of asthma, cancer ( colon polyps), PUD (on Prilosec), hemorrhoids, CHF, COPD on home oxygen, diabetes, GERD, hypertension, and sleep apnea presents to the hospital complaints of vomiting blood and bloody stools 1 day positive melena reported previously. Upper GI bleed/Hematochezia Nothing by mouth Blood transfusion needed; currently HGB 12.3/37.7. hemodynamically stable Closely monitor H&H Hold aspirin for now Started on PPI drip GI consult for possible EGD and colonoscopy Lower GI bleed Most likely due to hemorrhoids GI consulted for possible colonoscopy Acute Schizophrenia/Bipolar Mental health consult Chronic diastolic Congestive heart failure Resume Diuresis, beta blockers and ACEI/ARB Strict I&O's and daily weights Low-sodium/cardiac diet/fluid restriction Closely monitor electrolytes Cardiology evaluation Diabetes mellitus Resume oral antidiabetic medications Accu-Chek before meals and at bedtime Sliding scale insulin/NovoLog ADA carbohydrate consistent diet Hypertension Review of antihypertensive medication IV hydralazine for >160 Closely monitor Blood pressure GERD Started on Protonix DVT prophylaxis SCD due to active bleeding Advance Directives: Yes VTE prophylaxis?: Chemical Contraindication Mechanical VTE Prophylaxis: Treatment Not Indicated Plan of care discussed with patient/family: Yes <DEB ROSARIO - Last Filed: 04/18/17 12:26> History of Present Illness Date of admission: 04/16/17 08:42 Exam - Constitutional Vitals: Temp Pulse Resp BP Pulse Ox 98.7 F 100 H 20 137/82 100 04/17/17 15:21 04/17/17 15:21 04/17/17 15:21 04/17/17 15:21 04/17/17 15:21 Results - Labs CBC & Chem 7: 04/17/17 07:20 04/17/17 07:20 Labs: Laboratory Last Values WBC 7.6 K/mm3 (4.5-11.0) 04/17/17 07:20 RBC 4.82 M/mm3 (3.65-5.03) 04/17/17 07:20 Hgb 12.0 gm/dl (10.1-14.3) 04/17/17 07:20 Hct 38.6 % (30.3-42.9) 04/17/17 07:20 MCV 80 fl (79-97) 04/17/17 07:20 MCH 25 pg (28-32) L 04/17/17 07:20 MCHC 31 % (30-34) 04/17/17 07:20 RDW 15.6 % (13.2-15.2) H 04/17/17 07:20 Plt Count 207 K/mm3 (140-440) 04/17/17 07:20 Lymph % (Auto) 22.4 % (13.4-35.0) 04/17/17 07:20 Boyle % (Auto) 8.3 % (0.0-7.3) H 04/17/17 07:20 Eos % (Auto) 8.2 % (0.0-4.3) H 04/17/17 07:20 Baso % (Auto) 0.8 % (0.0-1.8) 04/17/17 07:20 Lymph # 1.7 K/mm3 (1.2-5.4) 04/17/17 07:20 Boyle # 0.6 K/mm3 (0.0-0.8) 04/17/17 07:20 Eos # 0.6 K/mm3 (0.0-0.4) H 04/17/17 07:20 Baso # 0.1 K/mm3 (0.0-0.1) 04/17/17 07:20 Seg Neutrophils % 60.3 % (40.0-70.0) 04/17/17 07:20 Seg Neutrophils # 4.6 K/mm3 (1.8-7.7) 04/17/17 07:20 PT 13.5 Sec. (12.2-14.9) 04/16/17 07:14 INR 0.98 (0.87-1.13) 04/16/17 07:14 APTT 32.9 Sec. (24.2-36.6) 04/16/17 07:14 Sodium 143 mmol/L (137-145) D 04/17/17 07:20 Potassium 4.2 mmol/L (3.6-5.0) 04/17/17 07:20 Chloride 103.7 mmol/L (98-107) 04/17/17 07:20 Carbon Dioxide 29 mmol/L (22-30) 04/17/17 07:20 Anion Gap 15 mmol/L 04/17/17 07:20 BUN 7 mg/dL (7-17) 04/17/17 07:20 Creatinine 0.9 mg/dL (0.7-1.2) 04/17/17 07:20 Estimated GFR > 60 ml/min 04/17/17 07:20 BUN/Creatinine Ratio 8 % 04/17/17 07:20 Glucose 110 mg/dL (65-100) H 04/17/17 07:20 Calcium 8.4 mg/dL (8.4-10.2) 04/17/17 07:20 Urine Color Yellow (Yellow) 04/16/17 03:14 Urine Turbidity Clear (Clear) 04/16/17 03:14 Urine pH 5.0 (5.0-7.0) 04/16/17 03:14 Ur Specific [place] 1.018 (1.003-1.030) 04/16/17 03:14 Urine Protein <15 mg/dl mg/dL (Negative) 04/16/17 03:14 Urine Glucose (UA) Neg mg/dL (Negative) 04/16/17 03:14 Urine Ketones Neg mg/dL (Negative) 04/16/17 03:14 Urine Blood Mod (Negative) 04/16/17 03:14 Urine Nitrite Neg (Negative) 04/16/17 03:14 Urine Bilirubin Neg (Negative) 04/16/17 03:14 Urine Urobilinogen < 2.0 mg/dL (<2.0) 04/16/17 03:14 Ur Leukocyte Esterase Neg (Negative) 04/16/17 03:14 Urine WBC (Auto) 3.0 /HPF (0.0-6.0) 04/16/17 03:14 Urine RBC (Auto) 2.0 /HPF (0.0-6.0) 04/16/17 03:14 U Epithel Cells (Auto) < 1.0 /HPF (0-13.0) 04/16/17 03:14 Urine Mucus Few /HPF 04/16/17 03:14 Blood Type O POSITIVE 04/16/17 02:15 Antibody Screen Negative 04/16/17 02:15 Assessment and Plan Assessment and plan: I saw and evaluated the patient. I agree with the findings and the plan of care as documented in the Nurse Practitioner's H/P note.
--- NOTE | 2017-04-16 09:54 | Gastroenterology Consultation ---
<VERENICE NICE - Last Filed: 04/16/17 10:14> History of Present Illness - Reason for Consult Consult date: 04/16/17 GI bleed Requesting physician: DELFINO ELLIS - History of Present Illness Patient is a 51 y/o female with PMH of asthma, COPD (on home O2), DM, GERD, HTN , PR, CHF, PUD ( on daily PPI), arthritis (is followed by [facility] pain clinic), bipolar, rectal carcinoid, colon polyps, and hemorrhoids who presented to ED after a fall at home with c/o vomiting blood and bloody stool x 1 day. H/ H on admission was WNL. This morning pt was resting in bed with family at beside , no acute distress noted, finishing up eating eggs. She reports having multiple episodes of rectal bleeding yesterday with bright red blood and dark clots. No melena or hematemesis. States she coughed up scant amount of blood streaked sputum yesterday but denies vomiting blood. She also c/o associated generalized abd pain and nausea but was able to tolerate a diet this am. Last BM with bright red blood was this am per pt. Scant amount of bright red blood was noted on betito pad under pt during exam. Denies fever, wt loss, CP, dizziness, vomiting, diarrhea, or constipation. Takes ASA daily. No hx of liver disease. Patient is previously known to our service from prior endoscopic evaluations. Her last EGD was 10/2015 with normal results and her last colonoscopy was in 2013 that revealed a colon polyp and hemorrhoids but no evidence of recurrent or residual carcinoid in the rectum. Past History Past Medical History: acute PR, arthritis, CAD, COPD (on home oxygen), GERD, heart failure, hypertension, other (sleep apnea, asthma, PUD, rectal carcinoid, colon polyps, hemorrhoids, bipolar) Past Surgical History: hysterectomy, Other (left knee, coronary stents x 2 in 2002) Social history: lives with family. denies: smoking, alcohol abuse Medications and Allergies Allergies Allergy/AdvReac Type Severity Reaction Status Date / Time azithromycin Allergy Shortness Verified 08/19/16 12:34 of Breath meloxicam Allergy Rash Verified 08/19/16 12:34 cephalexin monohydrate AdvReac Itching Verified 08/19/16 12:34 [From Keflex] pregabalin [From Lyrica] AdvReac Unknown Verified 08/19/16 12:34 shellfish derived AdvReac GI UPSET Verified 08/19/16 12:34 Sulfa (Sulfonamide AdvReac Itching Verified 08/19/16 12:34 Antibiotics) tomato [Tomato] AdvReac Unknown Verified 08/19/16 12:34 Home Medications Medication Instructions Recorded Confirmed Last Taken Type ALPRAZolam [Xanax TAB] 2 tab PO BID 06/15/13 04/16/17 10/17/15 History Amlodipine Besylate [Norvasc] 10 mg PO DAILY 06/15/13 04/16/17 10/18/15 07:00 History Carvedilol [Coreg] 6.25 tab PO BID 06/15/13 04/16/17 10/18/15 07:00 History Gabapentin [Neurontin] 600 mg PO BID 06/15/13 04/16/17 10/17/15 History [place] Carbonate 1 tab PO BID 06/15/13 04/16/17 10/18/15 07:00 History Losartan [Cozaar] 1 tab PO DAILY 06/15/13 04/16/17 10/18/15 07:00 History QUEtiapine [SEROquel] 400 mg PO BID 06/15/13 04/16/17 10/17/15 History Topiramate [Topamax TAB] 100 mg PO DAILY 06/15/13 04/16/17 10/18/15 07:00 History Albuterol Sulfate [Proventil HFA] 1 puff INHALATION PRN 07/03/13 04/16/17 11:50 History Aspirin [Aspirin BABY CHEW TAB] 1 tab PO DAILY 07/03/13 04/16/17 2 Weeks Ago History ~10/04/15 Furosemide 1 tab PO DAILY 07/03/13 04/16/17 10/18/15 07:00 History Lisinopril 1 tab PO DAILY 07/03/13 04/16/17 10/18/15 07:00 History Potassium Chloride [K-Dur] 1 tab PO DAILY 07/03/13 04/16/17 10/18/15 07:00 History Cetirizine HCl [ZyrTEC] 10 mg PO QDAY 10/18/15 04/16/17 10/17/15 History Fluticasone [Flonase] 1 spray NS QDAY 10/18/15 04/16/17 10/18/15 07:00 History Loratadine [Claritin] 10 mg PO DAILY 10/18/15 04/16/17 10/17/15 History Omeprazole (Nf) [PriLOSEC (Nf)] 1 tab PO QDAY 10/18/15 04/16/17 10/17/15 History Ranitidine HCl [Zantac 150 MG TAB] 150 mg PO QDAY 10/18/15 04/16/17 10/17/15 History Sertraline [Zoloft] 100 mg PO QDAY 10/18/15 04/16/17 10/18/15 07:00 History Cyclobenzaprine [Flexeril] 10 mg PO TID PRN #14 tablet 08/19/16 04/16/17 Unknown Rx Fluticasone/Salmeterol [Advair 1 each IH BID 04/16/17 04/16/17 Unknown History 500-50 Diskus] Tizanidine HCl [Zanaflex] 4 mg PO QID 04/16/17 04/16/17 Unknown History oxyCODONE ER [OxyCONTIN ER TAB] 20 mg PO QID 04/16/17 04/16/17 Unknown History Active Meds: Active Medications Acetaminophen (Tylenol) 650 mg PO Q4H PRN PRN Reason: Pain MILD(1-3)/Fever >100.5/NICHOLAS Bisacodyl (Dulcolax) 10 mg SD QDAY PRN PRN Reason: Constipation unrelieved by MOM Pantoprazole Sodium 80 mg/ (Sodium Chloride) 100 mls @ 10 mls/hr IV Q10H APRIL PRN Reason: 8 MG/HR Sodium Chloride (Nacl 0.9% 1000 Ml) 1,000 mls @ 75 mls/hr IV DIRECT APRIL Lorazepam (Ativan) 2 mg IV Q6H PRN PRN Reason: Seizures Morphine Sulfate (Morphine) 2 mg IV Q4H PRN PRN Reason: Pain, Moderate (4-6) Ondansetron HCl (Zofran) 4 mg IM Q4H PRN PRN Reason: Nausea And Vomiting Review of Systems - Review of Systems All systems: negative Gastrointestinal: abdominal pain, nausea, BRBPR Exam - Constitutional Vital Signs: Temp Pulse Resp BP Pulse Ox 97.9 F 93 H 18 103/54 97 04/16/17 07:10 04/16/17 08:00 04/16/17 08:38 04/16/17 08:45 04/16/17 08:45 General appearance: no acute distress, obese - EENT Eyes: PERRL, EOM intact ENT: hearing intact - Respiratory Respiratory: bilateral: CTA - Cardiovascular Rhythm: regular Heart Sounds: Present: S1 & S2 - Gastrointestinal General gastrointestinal: Present: soft, tender (mild diffuse TTP), non- distended, normal bowel sounds - Integumentary Integumentary: Present: warm, dry - Labs CBC & Chem 7: 04/16/17 02:14 04/16/17 03:47 Lab Results: Laboratory Results - last 24 hr 04/16/17 04/16/17 04/16/17 02:14 02:15 03:14 WBC 11.2 H RBC 4.77 Hgb 12.3 Hct 37.7 MCV 79 MCH 26 L MCHC 33 RDW 15.3 H Plt Count 239 Lymph % (Auto) 28.5 [place] % (Auto) 8.2 H Eos % (Auto) 8.0 H Baso % (Auto) 1.1 Lymph # 3.2 [place] # 0.9 H Eos # 0.9 H Baso # 0.1 Seg Neutrophils % 54.2 Seg Neutrophils # 6.1 PT INR APTT Sodium Potassium Chloride Carbon Dioxide Anion Gap BUN Creatinine Estimated GFR BUN/Creatinine Ratio Glucose Calcium Urine Color Yellow Urine Turbidity Clear Urine pH 5.0 Ur Specific [place] 1.018 Urine Protein <15 mg/dl Urine Glucose (UA) Neg Urine Ketones Neg Urine Blood Mod Urine Nitrite Neg Urine Bilirubin Neg Urine Urobilinogen < 2.0 Ur Leukocyte Esterase Neg Urine WBC (Auto) 3.0 Urine RBC (Auto) 2.0 U Epithel Cells (Auto) < 1.0 Urine Mucus Few Blood Type O POSITIVE Antibody Screen Negative 04/16/17 04/16/17 03:47 07:14 WBC RBC Hgb Hct MCV MCH MCHC RDW Plt Count Lymph % (Auto) [place] % (Auto) Eos % (Auto) Baso % (Auto) Lymph # [place] # Eos # Baso # Seg Neutrophils % Seg Neutrophils # PT 13.5 INR 0.98 APTT 32.9 Sodium 135 L Potassium 3.9 Chloride 98.1 Carbon Dioxide 27 Anion Gap 14 BUN 9 Creatinine 0.7 Estimated GFR > 60 BUN/Creatinine Ratio 13 Glucose 115 H Calcium 9.1 Urine Color Urine Turbidity Urine pH Ur Specific [place] Urine Protein Urine Glucose (UA) Urine Ketones Urine Blood Urine Nitrite Urine Bilirubin Urine Urobilinogen Ur Leukocyte Esterase Urine WBC (Auto) Urine RBC (Auto) U Epithel Cells (Auto) Urine Mucus Blood Type Antibody Screen Assessment and Plan 1.GI bleed 2.hematochezia -HGB 12.3/37.7 on admission -will order repeat H/H today -continue to monitor H/H and transfuse as needed -last BM x 1 this am with BRBPR -hold blood thinning medications -currently hemodynamically stable - EGD 2015 was normal -colonoscopy 2013 revealed a colon polyp and hemorrhoids but no evidence of recurrent or residual carcinoid in the rectum -d/c PPI gtt and start on daily PPI -clear liquid diet today then NPO after MN -will schedule for colonoscopy in am -continue supportive care -will follow <SCOTTY HINDS - Last Filed: 04/16/17 15:38> Medications and Allergies Active Meds: Active Medications Acetaminophen (Tylenol) 650 mg PO Q4H PRN PRN Reason: Pain MILD(1-3)/Fever >100.5/NICHOLAS Amlodipine Besylate (Norvasc) 10 mg PO DAILY COUNT INCLUDES THE [facility] Arformoterol Tartrate (Brovana Nebu) 15 mcg IH Q12HRT COUNT INCLUDES THE [facility] Bisacodyl (Dulcolax) 10 mg SD QDAY PRN PRN Reason: Constipation Budesonide (Pulmicort) 1 mg IH Q12HRT COUNT INCLUDES THE [facility] Carvedilol (Coreg) 12.5 mg PO BID COUNT INCLUDES THE [facility] Cyclobenzaprine HCl (Flexeril) 10 mg PO TID PRN PRN Reason: Muscle Spasm Fluticasone Propionate (Flonase) 50 mcg NS QDAY COUNT INCLUDES THE [facility] Furosemide (Lasix) 20 mg PO DAILY COUNT INCLUDES THE [facility] Gabapentin (Neurontin) 600 mg PO TID COUNT INCLUDES THE [facility] Sodium Chloride (Nacl 0.9% 1000 Ml) 1,000 mls @ 75 mls/hr IV DIRECT APRIL Last Admin: 04/16/17 11:26 Dose: 75 mls/hr [place] Carbonate (Eskalith) 300 mg PO BID COUNT INCLUDES THE [facility] Loratadine (Claritin) 10 mg PO DAILY COUNT INCLUDES THE [facility] Lorazepam (Ativan) 2 mg IV Q6H PRN PRN Reason: Seizures Last Admin: 04/16/17 14:01 Dose: 2 mg Losartan Potassium (Cozaar) 50 mg PO DAILY COUNT INCLUDES THE [facility] Morphine Sulfate (Morphine) 2 mg IV Q4H PRN PRN Reason: Pain, Moderate (4-6) Ondansetron HCl (Zofran) 4 mg IV Q4H PRN PRN Reason: Nausea And Vomiting Oxycodone HCl (Oxycontin) 20 mg PO Q6HR COUNT INCLUDES THE [facility] Pantoprazole Sodium (Protonix) 40 mg IV DAILY COUNT INCLUDES THE [facility] Potassium Chloride (K-Dur) 10 meq PO DAILY COUNT INCLUDES THE [facility] Quetiapine Fumarate (Seroquel) 400 mg PO BID COUNT INCLUDES THE [facility] Sertraline HCl (Zoloft) 100 mg PO QDAY COUNT INCLUDES THE [facility] Tizanidine HCl (Zanaflex) 4 mg PO QID COUNT INCLUDES THE [facility] Topiramate (Topamax) 100 mg PO DAILY COUNT INCLUDES THE [facility] Exam - Constitutional Vital Signs: Temp Pulse Resp BP Pulse Ox 98.1 F 83 20 118/71 100 04/16/17 13:36 04/16/17 13:36 04/16/17 13:36 04/16/17 13:36 04/16/17 13:36 - Labs CBC & Chem 7: 04/16/17 12:01 04/16/17 03:47 Lab Results: Laboratory Results - last 24 hr 04/16/17 04/16/17 04/16/17 02:14 02:15 03:14 WBC 11.2 H RBC 4.77 Hgb 12.3 Hct 37.7 MCV 79 MCH 26 L MCHC 33 RDW 15.3 H Plt Count 239 Lymph % (Auto) 28.5 [place] % (Auto) 8.2 H Eos % (Auto) 8.0 H Baso % (Auto) 1.1 Lymph # 3.2 [place] # 0.9 H Eos # 0.9 H Baso # 0.1 Seg Neutrophils % 54.2 Seg Neutrophils # 6.1 PT INR APTT Sodium Potassium Chloride Carbon Dioxide Anion Gap BUN Creatinine Estimated GFR BUN/Creatinine Ratio Glucose Calcium Urine Color Yellow Urine Turbidity Clear Urine pH 5.0 Ur Specific [place] 1.018 Urine Protein <15 mg/dl Urine Glucose (UA) Neg Urine Ketones Neg Urine Blood Mod Urine Nitrite Neg Urine Bilirubin Neg Urine Urobilinogen < 2.0 Ur Leukocyte Esterase Neg Urine WBC (Auto) 3.0 Urine RBC (Auto) 2.0 U Epithel Cells (Auto) < 1.0 Urine Mucus Few Blood Type O POSITIVE Antibody Screen Negative 04/16/17 04/16/17 04/16/17 03:47 07:14 12:01 WBC RBC Hgb 12.1 Hct 38.2 MCV MCH MCHC RDW Plt Count Lymph % (Auto) [place] % (Auto) Eos % (Auto) Baso % (Auto) Lymph # [place] # Eos # Baso # Seg Neutrophils % Seg Neutrophils # PT 13.5 INR 0.98 APTT 32.9 Sodium 135 L Potassium 3.9 Chloride 98.1 Carbon Dioxide 27 Anion Gap 14 BUN 9 Creatinine 0.7 Estimated GFR > 60 BUN/Creatinine Ratio 13 Glucose 115 H Calcium 9.1 Urine Color Urine Turbidity Urine pH Ur Specific [place] Urine Protein Urine Glucose (UA) Urine Ketones Urine Blood Urine Nitrite Urine Bilirubin Urine Urobilinogen Ur Leukocyte Esterase Urine WBC (Auto) Urine RBC (Auto) U Epithel Cells (Auto) Urine Mucus Blood Type Antibody Screen Assessment and Plan The patient was seen and examined. The care plan was discussed as above for colonoscopy tomorrow. She is taking the prep at present time. Thank you for asking us to see her in consultation. Scotty Hinds MD
[2017-04-16] MEDS ORDERED: ATIVAN IV PRN (10:00)
[2017-04-16] MEDS ORDERED: DULCOLAX PR PRN (10:00)
[2017-04-16] MEDS ORDERED: LOVENOX SUB-Q SCH (10:00)
[2017-04-16] MEDS ORDERED: PROTONIX 80 MG in NACL 0.9% 100 ML IV SCH (10:30)
[2017-04-16] MEDS ORDERED: ZOFRAN IV PRN (10:30)
[2017-04-16] MEDS ORDERED: TYLENOL PO PRN (10:30)
[2017-04-16] MEDS ORDERED: MORPHINE IV PRN (10:30)
[2017-04-16] MEDS: NACL 0.9% 1000 ML 1,000 ML IV SCH (11:26)
[2017-04-16] MEDS ORDERED: GOLYTELY PO ONE (12:00)
[2017-04-16 12:30] LABS: Hematocrit 38.2 % (30.3-42.9); Hemoglobin 12.1 gm/dl (10.1-14.3)
[2017-04-16] MEDS ORDERED: FLEXERIL PO PRN (13:35)
[2017-04-16] MEDS ORDERED: NON-FORMULARY (Tizanidine Hcl [Zanaflex] 4 MG) PO SCH (14:00)
[2017-04-16] MEDS ORDERED: PROTONIX PO SCH (15:00)
[2017-04-16] MEDS: ZOLOFT PO SCH (16:07)
[2017-04-16] MEDS: PROTONIX IV SCH (17:52)
[2017-04-16] MEDS: COZAAR PO SCH (17:53)
[2017-04-16] MEDS: NORVASC PO SCH (17:53)
[2017-04-16] MEDS: ZANAFLEX PO SCH ×2 (18:01→22:04)
[2017-04-16] MEDS: OxyCONTIN PO SCH ×2 (18:02→23:09)
[2017-04-16] MEDS: TOPAMAX PO SCH (18:47)
[2017-04-16] MEDS: PULMICORT IH SCH (20:32)
[2017-04-16] MEDS: BROVANA NEBU IH SCH (20:32)
[2017-04-16] MEDS ORDERED: LITHIUM CARBONATE PO SCH (22:00)
[2017-04-16] MEDS ORDERED: NON-FORMULARY (Fluticasone/Salmeterol [Advair 500-50 Diskus] 1 EACH) IH SCH (22:00)
[2017-04-16] MEDS ORDERED: NEURONTIN PO SCH (22:00)
[2017-04-16] MEDS: NEURONTIN PO SCH (22:03)
[2017-04-16] MEDS: ESKALITH PO SCH (22:03)
[2017-04-16] MEDS: COREG PO SCH (22:06)
[2017-04-17] MEDS: NACL 0.9% 1000 ML 1,000 ML IV SCH ×2 (02:13→12:37)
[2017-04-17] MEDS: OxyCONTIN PO SCH ×3 (06:00→14:53)
[2017-04-17 07:54] LABS: Basophils % (Auto) 0.8 % (0.0-1.8); Eosinophils % (Auto) 8.2 % (0.0-4.3); Hematocrit 38.6 % (30.3-42.9); Mean Corpuscular HGB Conc 31 % (30-34); Mean Corpuscular Volume 80 fl (79-97); Platelet Count 207 K/mm3 (140-440); Red Blood Count 4.82 M/mm3 (3.65-5.03); Red Cell Distribution Width 15.6 % (13.2-15.2); White Blood Count 7.6 K/mm3 (4.5-11.0)
[2017-04-17 07:59] LABS: Mean Corpuscular Hemoglobin 25 pg (28-32)
[2017-04-17 08:05] LABS: Anion Gap 15 mmol/L; BUN/Creatinine Ratio 8; Blood Urea Nitrogen 7 mg/dL (7-17); Calcium 8.4 mg/dL (8.4-10.2); Carbon Dioxide 29 mmol/L (22-30); Chloride 103.7 mmol/L (98-107); Glucose 110 mg/dL (65-100); Potassium 4.2 mmol/L (3.6-5.0); Sodium 143 mmol/L (137-145)
[2017-04-17] MEDS: NEURONTIN PO SCH ×2 (08:11→14:38)
[2017-04-17] MEDS: BROVANA NEBU IH SCH (08:34)
[2017-04-17] MEDS: PULMICORT IH SCH (08:34)
--- NOTE | 2017-04-17 09:11 | Progress Note ---
<GIANCARLO BARTLETT - Last Filed: 04/17/17 09:10> Hospitalist Physical - Constitutional Vitals: Temp Pulse Resp BP Pulse Ox 98.5 F 96 H 20 104/59 99 04/17/17 07:29 04/17/17 07:29 04/17/17 07:29 04/17/17 07:29 04/17/17 07:29 General appearance: Present: no acute distress Results - Labs CBC & Chem 7: 04/17/17 07:20 04/17/17 07:20 Labs: Laboratory Last Values WBC 7.6 K/mm3 (4.5-11.0) 04/17/17 07:20 RBC 4.82 M/mm3 (3.65-5.03) 04/17/17 07:20 Hgb 12.0 gm/dl (10.1-14.3) 04/17/17 07:20 Hct 38.6 % (30.3-42.9) 04/17/17 07:20 MCV 80 fl (79-97) 04/17/17 07:20 MCH 25 pg (28-32) L 04/17/17 07:20 MCHC 31 % (30-34) 04/17/17 07:20 RDW 15.6 % (13.2-15.2) H 04/17/17 07:20 Plt Count 207 K/mm3 (140-440) 04/17/17 07:20 Lymph % (Auto) 22.4 % (13.4-35.0) 04/17/17 07:20 [place] % (Auto) 8.3 % (0.0-7.3) H 04/17/17 07:20 Eos % (Auto) 8.2 % (0.0-4.3) H 04/17/17 07:20 Baso % (Auto) 0.8 % (0.0-1.8) 04/17/17 07:20 Lymph # 1.7 K/mm3 (1.2-5.4) 04/17/17 07:20 [place] # 0.6 K/mm3 (0.0-0.8) 04/17/17 07:20 Eos # 0.6 K/mm3 (0.0-0.4) H 04/17/17 07:20 Baso # 0.1 K/mm3 (0.0-0.1) 04/17/17 07:20 Seg Neutrophils % 60.3 % (40.0-70.0) 04/17/17 07:20 Seg Neutrophils # 4.6 K/mm3 (1.8-7.7) 04/17/17 07:20 PT 13.5 Sec. (12.2-14.9) 04/16/17 07:14 INR 0.98 (0.87-1.13) 04/16/17 07:14 APTT 32.9 Sec. (24.2-36.6) 04/16/17 07:14 Sodium 143 mmol/L (137-145) D 04/17/17 07:20 Potassium 4.2 mmol/L (3.6-5.0) 04/17/17 07:20 Chloride 103.7 mmol/L (98-107) 04/17/17 07:20 Carbon Dioxide 29 mmol/L (22-30) 04/17/17 07:20 Anion Gap 15 mmol/L 04/17/17 07:20 BUN 7 mg/dL (7-17) 04/17/17 07:20 Creatinine 0.9 mg/dL (0.7-1.2) 04/17/17 07:20 Estimated GFR > 60 ml/min 04/17/17 07:20 BUN/Creatinine Ratio 8 % 04/17/17 07:20 Glucose 110 mg/dL (65-100) H 04/17/17 07:20 Calcium 8.4 mg/dL (8.4-10.2) 04/17/17 07:20 Urine Color Yellow (Yellow) 04/16/17 03:14 Urine Turbidity Clear (Clear) 04/16/17 03:14 Urine pH 5.0 (5.0-7.0) 04/16/17 03:14 Ur Specific [place] 1.018 (1.003-1.030) 04/16/17 03:14 Urine Protein <15 mg/dl mg/dL (Negative) 04/16/17 03:14 Urine Glucose (UA) Neg mg/dL (Negative) 04/16/17 03:14 Urine Ketones Neg mg/dL (Negative) 04/16/17 03:14 Urine Blood Mod (Negative) 04/16/17 03:14 Urine Nitrite Neg (Negative) 04/16/17 03:14 Urine Bilirubin Neg (Negative) 04/16/17 03:14 Urine Urobilinogen < 2.0 mg/dL (<2.0) 04/16/17 03:14 Ur Leukocyte Esterase Neg (Negative) 04/16/17 03:14 Urine WBC (Auto) 3.0 /HPF (0.0-6.0) 04/16/17 03:14 Urine RBC (Auto) 2.0 /HPF (0.0-6.0) 04/16/17 03:14 U Epithel Cells (Auto) < 1.0 /HPF (0-13.0) 04/16/17 03:14 Urine Mucus Few /HPF 04/16/17 03:14 Blood Type O POSITIVE 04/16/17 02:15 Antibody Screen Negative 04/16/17 02:15 <MARVIN HU R - Last Filed: 04/26/17 12:30> Assessment and Plan Assessment and plan: Patient is a 51-year-old female with a past medical history of asthma, cancer ( colon polyps), PUD (on Prilosec), hemorrhoids, CHF, COPD on home oxygen, diabetes, GERD, hypertension, and sleep apnea presents to the hospital complaints of vomiting blood and bloody stools 1 day positive melena reported previously. Upper GI bleed/Hematochezia Nothing by mouth Blood transfusion as needed; currently HGB 12.3/37.7. hemodynamically stable Closely monitor H&H Hold aspirin for now cont on PPI GI consult for possible EGD and colonoscopy Lower GI bleed Most likely due to hemorrhoids GI consulted for possible colonoscopy Acute Schizophrenia/Bipolar Mental health consult Chronic diastolic Congestive heart failure Resume Diuresis, beta blockers and ACEI/ARB Strict I&O's and daily weights Low-sodium/cardiac diet/fluid restriction Closely monitor electrolytes Cardiology evaluation Diabetes mellitus Resume oral antidiabetic medications Accu-Chek before meals and at bedtime Sliding scale insulin/NovoLog ADA carbohydrate consistent diet Hypertension Review of antihypertensive medication IV hydralazine for >160 Closely monitor Blood pressure GERD Started on Protonix DVT prophylaxis SCD due to active bleeding History Interval history: Pt seen and examined, no acute event o/v N/V better Hospitalist Physical - Physical exam Narrative exam: General appearance: Present: no acute distress - EENT Eyes: Present: PERRL ENT: hearing intact - Neck Neck: Present: supple - Respiratory Respiratory effort: normal Respiratory: bilateral: CTA - Cardiovascular Rhythm: regular Heart Sounds: Present: S1 & S2 - Abdominal General gastrointestinal: Present: soft, non-tender Female genitourinary: Present: normal - Rectal Rectal Exam: hemorrhoids - Integumentary Integumentary: Present: clear, warm, dry - Musculoskeletal Musculoskeletal: strength equal bilaterally - Psychiatric Psychiatric: agitated, other (anxious) - Neurologic Neurologic: CNII-XII intact - Allied Health Allied health notes reviewed: nursing - Constitutional Vitals: Temp Pulse Resp BP Pulse Ox 98.7 F 100 H 20 137/82 100 04/17/17 15:21 04/17/17 15:21 04/17/17 15:21 04/17/17 15:21 04/17/17 15:21 Results - Labs CBC & Chem 7: 04/17/17 07:20 04/17/17 07:20 Labs: Laboratory Last Values WBC 7.6 K/mm3 (4.5-11.0) 04/17/17 07:20 RBC 4.82 M/mm3 (3.65-5.03) 04/17/17 07:20 Hgb 12.0 gm/dl (10.1-14.3) 04/17/17 07:20 Hct 38.6 % (30.3-42.9) 04/17/17 07:20 MCV 80 fl (79-97) 04/17/17 07:20 MCH 25 pg (28-32) L 04/17/17 07:20 MCHC 31 % (30-34) 04/17/17 07:20 RDW 15.6 % (13.2-15.2) H 04/17/17 07:20 Plt Count 207 K/mm3 (140-440) 04/17/17 07:20 Lymph % (Auto) 22.4 % (13.4-35.0) 04/17/17 07:20 [place] % (Auto) 8.3 % (0.0-7.3) H 04/17/17 07:20 Eos % (Auto) 8.2 % (0.0-4.3) H 04/17/17 07:20 Baso % (Auto) 0.8 % (0.0-1.8) 04/17/17 07:20 Lymph # 1.7 K/mm3 (1.2-5.4) 04/17/17 07:20 [place] # 0.6 K/mm3 (0.0-0.8) 04/17/17 07:20 Eos # 0.6 K/mm3 (0.0-0.4) H 04/17/17 07:20 Baso # 0.1 K/mm3 (0.0-0.1) 04/17/17 07:20 Seg Neutrophils % 60.3 % (40.0-70.0) 04/17/17 07:20 Seg Neutrophils # 4.6 K/mm3 (1.8-7.7) 04/17/17 07:20 PT 13.5 Sec. (12.2-14.9) 04/16/17 07:14 INR 0.98 (0.87-1.13) 04/16/17 07:14 APTT 32.9 Sec. (24.2-36.6) 04/16/17 07:14 Sodium 143 mmol/L (137-145) D 04/17/17 07:20 Potassium 4.2 mmol/L (3.6-5.0) 04/17/17 07:20 Chloride 103.7 mmol/L (98-107) 04/17/17 07:20 Carbon Dioxide 29 mmol/L (22-30) 04/17/17 07:20 Anion Gap 15 mmol/L 04/17/17 07:20 BUN 7 mg/dL (7-17) 04/17/17 07:20 Creatinine 0.9 mg/dL (0.7-1.2) 04/17/17 07:20 Estimated GFR > 60 ml/min 04/17/17 07:20 BUN/Creatinine Ratio 8 % 04/17/17 07:20 Glucose 110 mg/dL (65-100) H 04/17/17 07:20 Calcium 8.4 mg/dL (8.4-10.2) 04/17/17 07:20 Urine Color Yellow (Yellow) 04/16/17 03:14 Urine Turbidity Clear (Clear) 04/16/17 03:14 Urine pH 5.0 (5.0-7.0) 04/16/17 03:14 Ur Specific [place] 1.018 (1.003-1.030) 04/16/17 03:14 Urine Protein <15 mg/dl mg/dL (Negative) 04/16/17 03:14 Urine Glucose (UA) Neg mg/dL (Negative) 04/16/17 03:14 Urine Ketones Neg mg/dL (Negative) 04/16/17 03:14 Urine Blood Mod (Negative) 04/16/17 03:14 Urine Nitrite Neg (Negative) 04/16/17 03:14 Urine Bilirubin Neg (Negative) 04/16/17 03:14 Urine Urobilinogen < 2.0 mg/dL (<2.0) 04/16/17 03:14 Ur Leukocyte Esterase Neg (Negative) 04/16/17 03:14 Urine WBC (Auto) 3.0 /HPF (0.0-6.0) 04/16/17 03:14 Urine RBC (Auto) 2.0 /HPF (0.0-6.0) 04/16/17 03:14 U Epithel Cells (Auto) < 1.0 /HPF (0-13.0) 04/16/17 03:14 Urine Mucus Few /HPF 04/16/17 03:14 Blood Type O POSITIVE 04/16/17 02:15 Antibody Screen Negative 04/16/17 02:15
[2017-04-17] MEDS ORDERED: NON-FORMULARY (Ranitidine Hcl [Zantac 150 Mg Tab] 150 MG) PO SCH (10:00)
[2017-04-17] MEDS ORDERED: TOPIRAMATE 100 MG PO SCH (10:00)
[2017-04-17] MEDS ORDERED: BABY ASPIRIN PO SCH (10:00)
[2017-04-17] MEDS ORDERED: LASIX PO SCH (10:00)
[2017-04-17] MEDS ORDERED: BREVIBLOC IV ONE (10:00)
[2017-04-17] MEDS ORDERED: FLONASE NS SCH (10:00)
[2017-04-17] MEDS ORDERED: K-DUR PO SCH (10:00)
[2017-04-17] MEDS ORDERED: OMEPRAZOLE PO SCH (10:00)
[2017-04-17] MEDS ORDERED: NON-FORMULARY (Cetirizine Hcl [Zyrtec] 10 MG) PO SCH (10:00)
[2017-04-17] MEDS ORDERED: ZESTRIL PO SCH (10:00)
[2017-04-17] MEDS ORDERED: CLARITIN PO SCH (10:00)
[2017-04-17] MEDS ORDERED: NON-FORMULARY (Amlodipine Besylate [Norvasc] 10 MG) PO SCH (10:00)
[2017-04-17] MEDS ORDERED: PNEUMOVAX 23 IM ONE (12:00)
[2017-04-17] MEDS ORDERED: WATER FOR IRRIG STERILE IR ONE (12:57)
--- NOTE | 2017-04-17 13:00 | Anesthesia Consultation ---
Anesthesia Consult and Med Hx Date of service: 04/17/17 - Airway Anesthetic Teeth Evaluation: Edentulous (upper) ROM Head & Neck: Adequate Mental/Hyoid Distance: Adequate Mallampati Class: Class III Intubation Access Assessment: Possibly Difficult - Pulmonary Exam CTA: Yes - Cardiac Exam Cardiac Exam: RRR - Pre-Operative Health Status ASA Pre-Surgery Classification: ASA3 Proposed Anesthetic Plan: MAC - Pulmonary Hx Asthma: Yes SOB: Yes (very easily. cannot walk up stairs) COPD: Yes Home Oxygen Therapy: Yes (prn ) Hx Sleep Apnea: Yes - Cardiovascular System Hx Hypertension: Yes (1992) Hx Coronary Artery Disease: Yes Hx Heart Attack/AMI: Yes () Hx Percutaneous Transluminal Coronary Angioplasty (PTCA): Yes Hx Valvular Heart Disease: Yes (mild MR per ECHO 07/2012) Hx Heart Murmur: No - Central Nervous System Hx Neuromuscular Disorder: (diabetic neuropathy in feet) Hx Back Pain: Yes (multiple levels (C,T&L) of herniated/bulging disks following fall in 1991) Hx Psychiatric Problems: Yes (schizophrenia) - Gastrointestinal Hx Ulcer: Yes Hx Gastroesophageal Reflux Disease: Yes (severe) - Endocrine Hx Non-Insulin Dependent Diabetes: Yes (diet controlled) - Other Systems Hx Obesity: Yes
--- NOTE | 2017-04-17 13:01 | Anesthesia Day of Surgery ---
Anesthesia Day of Surgery - Day of Surgery Patient Examined: Yes Patient H&P Reviewed: Yes Patient is NPO: Yes Beta Blockers: Yes
[2017-04-17] MEDS ORDERED: DIPRIVAN 10 MG/ML IV ONE ×2 (13:03→13:04)
[2017-04-17] MEDS ORDERED: XYLOCAINE TOPICAL 2% 5ML ONE (13:37)
--- NOTE | 2017-04-17 13:43 | Operative Report ---
Operative Report Operative Report: Date of procedure: 04/17/2017 Preprocedure diagnosis: Rectal bleeding, history of rectal carcinoid Post procedure diagnosis: Central hemorrhoids, nonbleeding. No evidence of recurrent rectal neoplasm. Procedure: Colonoscopy to the cecum banding of internal hemorrhoids. Endoscopist: Dr. Villafuerte Anesthesia: Monitored anesthesia care per anesthesia department Estimated blood loss: 0 Medications: Monitored anesthesia care. See separate report by anesthesia for details. After careful discussion of the nature and purpose of the procedure as well as details of the technique risks benefits and alternatives the patient gave consent. Please see recent history and physical from the office. The patient was placed in the left lateral decubitus position and medicated per anesthesia. A rectal exam was performed sphincter tone was normal there were no masses palpable. The InOpeninon 570 scope was passed transanally and advanced under continuous direct vision without difficulty to the cecum. The colon was well prepared. There was no blood present there was no blood present in the colon. The cecum was normal. The ascending colon was normal and on forward and retroflexed views. The transverse colon, descending colon, and sigmoid colon were normal. The rectum looked 2+ internal hemorrhoids on retroflexed view. Hemorrhoids were not presently bleeding but in light of relapsing bleeding it was elected to band the hemorrhoids specifically as well at the patient's request. The scope was removed followed by noting the banding device to the EG 570 upper scope. The scope was then inserted per rectum and retroflexed. 3 bands were placed successfully above the dentate line. The procedure was well-tolerated overall and the patient was observed in recovery. Conclusions: 2+ internal hemorrhoids. Normal colon otherwise. Status post banding of hemorrhoids. Plan: The patient. Advance diet. Home at your discretion (possibly today) as she is stable GI-yao with a low risk of significant blood loss. Signed electronically: Juan Jsoe Villafuerte M.D.
--- NOTE | 2017-04-17 14:23 | Post Anesthesia Evaluation ---
- Post Anesthesia Evaluation Patient Participated: Yes Airway Patent: Yes Stable Respiratory Function: Yes Nausea/Vomiting: No Temp > 96.8F: Yes Pain Manageable: Yes Adequeate Hydration: Yes Anesthesia Complications: No Block Receding Appropriately: Not Applicable Patient on Ventilator: No
[2017-04-17] MEDS ORDERED: PROCTOSOL-HC PR PRN (14:27)
[2017-04-17] MEDS: PROTONIX IV SCH (14:36)
[2017-04-17] MEDS: NORVASC PO SCH (14:38)
[2017-04-17] MEDS: COREG PO SCH (14:39)
[2017-04-17] MEDS: ZANAFLEX PO SCH (14:39)
[2017-04-17] MEDS: COZAAR PO SCH (14:40)
[2017-04-17] MEDS: ESKALITH PO SCH (14:42)
[2017-04-17] MEDS: TOPAMAX PO SCH (14:42)
--- NOTE | 2017-04-17 14:59 | Discharge Summary ---
<GIANCARLO BARTLETT - Last Filed: 04/18/17 16:13> Providers - Providers Date of Admission: 04/16/17 08:42 Date of discharge: 04/17/17 Attending physician: MARVIN HU 04/16/17 07:44 Consult to Physician [CONS] Urgent Consulting Provider: SCOTTY HINDS Reason For Exam: rectal bleed, hematemesis, hx of PUD Place consult to:: GI Notified:: y If yes, spoke with:: DR HINDS Time called:: 07:40 04/16/17 08:50 Consult to Mental Health [CONS] Routine Reason For Exam: acute bipolar and schizophrenia Place consult to:: yes Notified:: yes Phone number called:: [phone] Time called:: 12:00 Primary care physician: MAGI WADDELL MD Hospitalization Condition: Stable Hospital course: Patient is a 51-year-old female with a past medical history of asthma, cancer ( colon polyps), PUD (on Prilosec), hemorrhoids, CHF, COPD on home oxygen, diabetes, GERD, hypertension, and sleep apnea presents to the hospital complaints of vomiting blood and bloody stools 1 day positive melena reported previously. Patient reports having coughed up scant amount of blood streaked sputum and multiple episodes rectal bleeding with bright red blood and dark clots since yesterday. Also complains intermittent generalized abdominal pain that initially felt like gas pains but it has now progressed to being nearly constant.The pain is described as a constant dull, diffuse pain that intermittently becomes sharp and well localized. The sharp pain tends to occur in different locations at different times. The intensity of the pain has been increasing since this morning and on pain scale she now rates the pain at 8 out of 10; worse with palpation. Patient has multiple hemorrhoids. She denies fever , wt loss, CP, dizziness, vomiting, diarrhea, or constipation. Chest Xray was unremarkable. Hip Xray revealed suspected mild arthritic changes in the superior lateral hip joint. Patient underwent colonoscopy which revealed internal hemorrhoids which were banded, otherwise normal. Discharge diagnosis Upper GI bleed/Hematochezia Lower GI bleed Acute Schizophrenia/Bipolar Chronic diastolic Congestive heart failure Diabetes mellitus Hypertension GERD Disposition: TO HOME OR SELFCARE Core Measure Documentation - Palliative Care Palliative Care/ Comfort Measures: Not Applicable - Core Measures Any of the following diagnoses?: none Exam - Constitutional Vitals: Temp Pulse Resp BP Pulse Ox 98.3 F 97 H 18 149/86 98 04/17/17 13:35 04/17/17 14:40 04/17/17 14:53 04/17/17 14:40 04/17/17 13:50 General appearance: Present: no acute distress, well-nourished - EENT Eyes: Present: PERRL ENT: hearing intact, clear oral mucosa - Neck Neck: Present: supple, normal ROM - Respiratory Respiratory effort: normal Respiratory: bilateral: CTA - Cardiovascular Heart Sounds: Present: S1 & S2. Absent: rub, click - Extremities Extremities: pulses symmetrical, No edema Peripheral Pulses: within normal limits - Abdominal General gastrointestinal: Present: soft, non-tender, non-distended, normal bowel sounds Female genitourinary: Present: deferred - Rectal Rectal Exam: deferred - Integumentary Integumentary: Present: clear, warm, dry - Musculoskeletal Musculoskeletal: gait normal, strength equal bilaterally - Psychiatric Psychiatric: appropriate mood/affect, intact judgment & insight - Neurologic Neurologic: CNII-XII intact, moves all extremities - Allied Health Allied health notes reviewed: nursing Plan Activity: fall precautions Weight Bearing Status: Weight Bear as Tolerated Diet: low fat, low cholesterol, low salt Follow up with: MAGI WADDELL MD [Primary Care Provider] - 3-5 Days Prescriptions: amLODIPine [Norvasc] 10 mg PO DAILY #30 tablet Hydrocortisone 2.5% [Proctosol-Hc] 1 applic MO Q8H PRN #14 tube PRN Reason: Hemorrhoids <MARVIN HU - Last Filed: 04/26/17 12:28> Providers - Providers Date of Admission: 04/16/17 08:42 Attending physician: MARVIN HU 04/16/17 07:44 Consult to Physician [CONS] Urgent Consulting Provider: SCOTTY HINDS Reason For Exam: rectal bleed, hematemesis, hx of PUD Place consult to:: GI Notified:: y If yes, spoke with:: DR HINDS Time called:: 07:40 04/16/17 08:50 Consult to Mental Health [CONS] Routine Reason For Exam: acute bipolar and schizophrenia Place consult to:: yes Notified:: yes Phone number called:: [phone] Time called:: 12:00 Primary care physician: MAGI WADDELL MD Hospitalization Hospital course: I saw and evaluated the patient. I agree with the findings and the plan of care as documented in the Nurse Practitioner's~note. Time spent for discharge: 32 minutes Exam - Constitutional Vitals: Temp Pulse Resp BP Pulse Ox 98.7 F 100 H 20 137/82 100 04/17/17 15:21 04/17/17 15:21 04/17/17 15:21 04/17/17 15:21 04/17/17 15:21
[2017-04-17] MEDS: ZOLOFT PO SCH (15:14)
--- NOTE | 2017-04-17 15:26 | XRay Report ---
Right hip 2 views: History: Pain. Findings: Suspected mild arthritic changes superior-lateral hip joint. No fracture dislocation or soft tissue calcification. Impression: Suspected mild arthritic changes superior-lateral hip joint.
[2017-04-17 16:35] VITALS: BP 137/82
--- NOTE | 2017-04-25 12:10 | Query- Dyspnea ---
Deayanique Bentley____Soni Date:___04/25/17 Software Quality Assurance Specialist/CDS: Yumi / Ramos Phone#:___[phone] Exercise your independent professional judgment when responding to query. Questions asked do not imply a particular answer is desired or expected. We greatly appreciate your clarification on this issue. Clinical Documentation States: 51 year old female was admitted on 04/16/17. The H&P (Dr. Shafer) states " Patient is a 51-year-old female with a past medical history of asthma, cancer (colon polyps), PUD (on Prilosec), hemorrhoids , CHF, COPD on home oxygen, diabetes, GERD, hypertension, and sleep apnea presents to the hospital complaints of vomiting blood and bloody stools " Clinical Findings Show: Respiratory rate: 37 O2 Flow rate: 3 L/min Please clarify if the patient had any of the following conditions based on the above clinical findings: [ x] Respiratory Failure [x ] Acute [ ] Acute on Chronic [ ] Chronic [ ] Respiratory failure due to trauma [ ] Acute Respiratory Distress Syndrome [ ] Other: [ ] Unable to determine [ ] Comment/Explanation: Present on Admission: [x ] Yes (Y) [ ] Clinically undeterminable (W) [ ] No (N) Please also document response in your Progress Notes and/or Discharge Summary and indicate if the condition was present on admission. AUDIED
== END 2017-04-17 17:28 | disposition home or self-care (01) | DRG 347 ==
LOC: ED 00:13 → 3A 08:42
PROVIDERS: ADMIT Internal Medicine; ATTEND Internal Medicine
PROC: 3E0234Z Introduction of Serum, Toxoid and Vaccine into Muscle, Percutaneous Approach (ICD-10-PCS; principal; 2017-04-17)
PROC: 06LY4CC Occlusion of Hemorrhoidal Plexus with Extraluminal Device, Percutaneous Endoscopic Approach (ICD-10-PCS; 2017-04-17)
DX: K64.8 Other hemorrhoids (principal); J96.00 Acute respiratory failure, unspecified whether with hypoxia or hypercapnia; I50.32 Chronic diastolic (congestive) heart failure; D64.9 Anemia, unspecified; K21.9 Gastro-esophageal reflux disease without esophagitis; F31.9 Bipolar disorder, unspecified; F20.9 Schizophrenia, unspecified; Z23 Encounter for immunization; I11.0 Hypertensive heart disease with heart failure; G47.30 Sleep apnea, unspecified; I25.10 Atherosclerotic heart disease of native coronary artery without angina pectoris; Z95.5 Presence of coronary angioplasty implant and graft; I34.0 Nonrheumatic mitral (valve) insufficiency; I25.2 Old myocardial infarction; E11.40 Type 2 diabetes mellitus with diabetic neuropathy, unspecified; J44.9 Chronic obstructive pulmonary disease, unspecified; E66.9 Obesity, unspecified; M19.90 Unspecified osteoarthritis, unspecified site; Z87.11 Personal history of peptic ulcer disease; Z90.710 Acquired absence of both cervix and uterus; Z86.010 Personal history of colon polyps; Z79.899 Other long term (current) drug therapy; Z88.1 Allergy status to other antibiotic agents; Z88.2 Allergy status to sulfonamides; Z91.013 Allergy to seafood; Z91.018 Allergy to other foods; Z82.49 Family history of ischemic heart disease and other diseases of the circulatory system
CPT/HCPCS: 36415; 71010; 80048; 81001; 82271; 85014; 85018; 85025; 85610; 85730; 86850; 86900; 86901; 90732; 93005; 93010; 94640; C9113; J1170; J2060; J2270; J2405; J2704; J7030; J7050

== ENCOUNTER 2017-05-08 12:23 | Emergency (ER) | payer MEDICAID ==
[2017-05-08] MEDS ORDERED: NACL 0.9% 1000 ML 1,000 ML IV ONE (13:35)
[2017-05-08 14:35] LABS: Hematocrit 42.7 % (30.3-42.9); Hemoglobin 13.7 gm/dl (10.1-14.3); Mean Corpuscular HGB Conc 32 % (30-34); Mean Corpuscular Volume 79 fl (79-97); Red Cell Distribution Width 15.6 % (13.2-15.2)
[2017-05-08 14:42] LABS: Mean Corpuscular Hemoglobin 25 pg (28-32); Platelet Count 236 K/mm3 (140-440)
[2017-05-08 14:45] LABS: INR 1.01 (0.87-1.13)
[2017-05-08 14:53] LABS: Partial Thromboplastin Time 29.6 Sec. (24.2-36.6)
[2017-05-08 15:00] LABS: Alanine Aminotransferase 26 units/L (7-56); Albumin 4.5 g/dL (3.9-5); BUN/Creatinine Ratio 20; Blood Urea Nitrogen 14 mg/dL (7-17); Calcium 9.6 mg/dL (8.4-10.2); Hemolysis Index 22; Lipase 47 units/L (13-60)
[2017-05-08 15:04] LABS: Bacteria,Urine 1+ /HPF (Negative); Bilirubin,Urine NEG (Negative); Blood,Urine NEG (Negative); Nitrite,Urine NEG (Negative); Urobilinogen,Urine < 2.0 mg/dL (<2.0)
[2017-05-08 15:07] LABS: Color,Urine Yellow (Yellow)
[2017-05-08 19:17] LABS: Basophils % (Manual) 0 % (0.0-1.8); Total Cells Counted 100
[2017-05-08 19:18] LABS: Hypochromasia 1+; Platelet Estimate Consistent w Auto
[2017-05-08 20:09] VITALS: BP 146/105
--- NOTE | 2017-05-08 21:05 | Emergency Department Report ---
ED GI Bleed HPI - General Chief complaint: GI Bleed Stated complaint: RECTAL BLEEDING Time Seen by Provider: 05/08/17 20:41 Source: patient Mode of arrival: Ambulatory Limitations: No Limitations - History of Present Illness Initial comments: Patient with bright red blood per rectum. Has GI doctor and was here recently in April for bleeding as well at which time additional polyps were found as well as hemorrhoids. Patient does not eat well and does report good hydration with no caffeine. Patient with has run out of her protofoam. She does not eat any fiber. MD complaint: gross hematochezia -: Sudden Radiation: none Severity scale (0 -10): 10 (Rectal pain) Quality: burning, sharp Consistency: constant Improves with: none Worsens with: bowel movement Context: history of GI bleed, hemorrhoids Associated Symptoms: denies other symptoms - Related Data Home Medications Medication Instructions Recorded Confirmed Last Taken ALPRAZolam [Xanax TAB] 2 tab PO BID 06/15/13 04/16/17 10/17/15 Carvedilol [Coreg] 6.25 tab PO BID 06/15/13 04/16/17 10/18/15 07:00 Gabapentin [Neurontin] 600 mg PO BID 06/15/13 04/16/17 10/17/15 Francis Carbonate 1 tab PO BID 06/15/13 04/16/17 10/18/15 07:00 Losartan [Cozaar] 1 tab PO DAILY 06/15/13 04/16/17 10/18/15 07:00 QUEtiapine [SEROquel] 400 mg PO BID 06/15/13 04/16/17 10/17/15 Topiramate [Topamax TAB] 100 mg PO DAILY 06/15/13 04/16/17 10/18/15 07:00 Albuterol Sulfate [Proventil HFA] 1 puff INHALATION PRN 07/03/13 04/16/17 11:50 Aspirin [Aspirin BABY CHEW TAB] 1 tab PO DAILY 07/03/13 04/16/17 2 Weeks Ago ~10/04/15 Furosemide 1 tab PO DAILY 07/03/13 04/16/17 10/18/15 07:00 Potassium Chloride [K-Dur] 1 tab PO DAILY 07/03/13 04/16/17 10/18/15 07:00 Cetirizine HCl [ZyrTEC] 10 mg PO QDAY 10/18/15 04/16/17 10/17/15 Fluticasone [Flonase] 1 spray NS QDAY 10/18/15 04/16/17 10/18/15 07:00 Loratadine [Claritin] 10 mg PO DAILY 10/18/15 04/16/17 10/17/15 Ranitidine HCl [Zantac 150 MG TAB] 150 mg PO QDAY 10/18/15 04/16/17 10/17/15 Sertraline [Zoloft] 100 mg PO QDAY 10/18/15 04/16/17 10/18/15 07:00 Fluticasone/Salmeterol [Advair 1 each IH BID 04/16/17 04/16/17 Unknown 500-50 Diskus] Tizanidine HCl [Zanaflex] 4 mg PO QID 04/16/17 04/16/17 Unknown oxyCODONE ER [OxyCONTIN ER TAB] 20 mg PO QID 04/16/17 04/16/17 Unknown Previous Rx's Medication Instructions Recorded Last Taken Type Cyclobenzaprine [Flexeril 10 MG 10 mg PO TID PRN #14 tablet 08/19/16 Unknown Rx TAB] Hydrocortisone 2.5% [Proctosol-Hc] 1 applic NC Q8H PRN #14 tube 04/17/17 Unknown Rx amLODIPine [Norvasc] 10 mg PO DAILY #30 tablet 04/17/17 Unknown Rx Pramoxine 1% [Proctofoam] 1 applicatio TP 5XD PRN #1 foam 05/08/17 Unknown Rx Allergies Allergy/AdvReac Type Severity Reaction Status Date / Time azithromycin Allergy Shortness Verified 08/19/16 12:34 of Breath meloxicam Allergy Rash Verified 08/19/16 12:34 cephalexin monohydrate AdvReac Itching Verified 08/19/16 12:34 [From Keflex] pregabalin [From Lyrica] AdvReac Unknown Verified 08/19/16 12:34 shellfish derived AdvReac GI UPSET Verified 08/19/16 12:34 Sulfa (Sulfonamide AdvReac Itching Verified 08/19/16 12:34 Antibiotics) tomato [Tomato] AdvReac Unknown Verified 08/19/16 12:34 ED Review of Systems ROS: Stated complaint: RECTAL BLEEDING Other details as noted in HPI Constitutional: denies: chills, fever Eyes: denies: eye pain, eye discharge, vision change ENT: denies: ear pain, throat pain Respiratory: denies: cough, shortness of breath, wheezing Cardiovascular: denies: chest pain, palpitations Endocrine: no symptoms reported Gastrointestinal: denies: abdominal pain, nausea, diarrhea Genitourinary: denies: urgency, dysuria, discharge Musculoskeletal: denies: back pain, joint swelling, arthralgia Skin: denies: rash, lesions Neurological: denies: headache, weakness, paresthesias Psychiatric: denies: anxiety, depression Hematological/Lymphatic: denies: easy bleeding, easy bruising ED Past Medical Hx - Past Medical History Hx Hypertension: Yes (1992) Hx Heart Attack/AMI: Yes () Hx Congestive Heart Failure: Yes Hx Diabetes: Yes Hx GERD: Yes (peptic ulcer) Hx Liver Disease: No Hx Renal Disease: No Hx Arthritis: Yes Hx Asthma: Yes Hx COPD: Yes Hx HIV: No Additional medical history: Sleep apnea using CPAP machine at night, Home 02 concentrated oxygen 2 liters, Spinal problems buldging disc, and hip problems, gets injections at [facility] with Dr. Hernández, wants to report her psychiatrist is Dr. Mynor Urrutia. Hemorrhoids - Surgical History Hx Coronary Stent: Yes (2002 (pt states she has 2 stents)) Additional Surgical History: Hysterectomy. left knee surgery - Social History Smoking Status: Never Smoker Substance Use Type: Prescribed - Medications Home Medications: Home Medications Medication Instructions Recorded Confirmed Last Taken Type ALPRAZolam [Xanax TAB] 2 tab PO BID 06/15/13 04/16/17 10/17/15 History Carvedilol [Coreg] 6.25 tab PO BID 06/15/13 04/16/17 10/18/15 07:00 History Gabapentin [Neurontin] 600 mg PO BID 06/15/13 04/16/17 10/17/15 History Francis Carbonate 1 tab PO BID 06/15/13 04/16/17 10/18/15 07:00 History Losartan [Cozaar] 1 tab PO DAILY 06/15/13 04/16/17 10/18/15 07:00 History QUEtiapine [SEROquel] 400 mg PO BID 06/15/13 04/16/17 10/17/15 History Topiramate [Topamax TAB] 100 mg PO DAILY 06/15/13 04/16/17 10/18/15 07:00 History Albuterol Sulfate [Proventil HFA] 1 puff INHALATION PRN 07/03/13 04/16/17 11:50 History Aspirin [Aspirin BABY CHEW TAB] 1 tab PO DAILY 07/03/13 04/16/17 2 Weeks Ago History ~10/04/15 Furosemide 1 tab PO DAILY 07/03/13 04/16/17 10/18/15 07:00 History Potassium Chloride [K-Dur] 1 tab PO DAILY 07/03/13 04/16/17 10/18/15 07:00 History Cetirizine HCl [ZyrTEC] 10 mg PO QDAY 10/18/15 04/16/17 10/17/15 History Fluticasone [Flonase] 1 spray NS QDAY 10/18/15 04/16/17 10/18/15 07:00 History Loratadine [Claritin] 10 mg PO DAILY 10/18/15 04/16/17 10/17/15 History Ranitidine HCl [Zantac 150 MG TAB] 150 mg PO QDAY 10/18/15 04/16/17 10/17/15 History Sertraline [Zoloft] 100 mg PO QDAY 10/18/15 04/16/17 10/18/15 07:00 History Cyclobenzaprine [Flexeril 10 MG 10 mg PO TID PRN #14 tablet 08/19/16 04/16/17 Unknown Rx TAB] Fluticasone/Salmeterol [Advair 1 each IH BID 04/16/17 04/16/17 Unknown History 500-50 Diskus] Tizanidine HCl [Zanaflex] 4 mg PO QID 04/16/17 04/16/17 Unknown History oxyCODONE ER [OxyCONTIN ER TAB] 20 mg PO QID 04/16/17 04/16/17 Unknown History Hydrocortisone 2.5% [Proctosol-Hc] 1 applic NC Q8H PRN #14 tube 04/17/17 Unknown Rx amLODIPine [Norvasc] 10 mg PO DAILY #30 tablet 04/17/17 Unknown Rx Pramoxine 1% [Proctofoam] 1 applicatio TP 5XD PRN #1 foam 05/08/17 Unknown Rx ED Physical Exam - General Limitations: No Limitations - Rectal Rectal exam: Present: hemorrhoids ED Course Vital Signs 05/08/17 05/08/17 13:24 20:07 Temperature 98 F 97.9 F Pulse Rate 92 H 92 H Respiratory 18 18 Rate Blood Pressure 158/94 146/105 O2 Sat by Pulse 99 Oximetry ED Medical Decision Making - Lab Data Result diagrams: 05/08/17 13:44 05/08/17 13:44 Unremarkable labs. - EKG Data -: EKG Interpreted by In EKG shows normal: sinus rhythm, intervals (borderline prolonged NC interval.), QRS complexes (normal), ST-T waves (normal) Rate: normal - EKG Data Interpretation: no acute changes - Medical Decision Making Patient with recent full work up for GI bleed. hemorrhoids present. Labs improved from admission and vitals are all stable. Will send home with proctofoam. Critical care attestation.: If time is entered above; I have spent that time in minutes in the direct care of this critically ill patient, excluding procedure time. ED Disposition Clinical Impression: Bleeding hemorrhoids Disposition: - TO HOME OR SELFCARE Is pt being admited?: No Does the pt Need Aspirin: No Condition: Good Instructions: Hemorrhoids (ED) Additional Instructions: Eat more fiber. Prescriptions: Pramoxine 1% [Proctofoam] 1 applicatio TP 5XD PRN #1 foam PRN Reason: Hemorrhoids Referrals: PRIMARY CARE, [Primary Care Provider] - 3-5 Days Time of Disposition: 21:12
== END 2017-05-08 21:31 | disposition home or self-care (01) ==
LOC: ED 12:23
DX: K64.9 Unspecified hemorrhoids (principal); I10 Essential (primary) hypertension; I25.2 Old myocardial infarction; E11.9 Type 2 diabetes mellitus without complications; K21.9 Gastro-esophageal reflux disease without esophagitis; J45.909 Unspecified asthma, uncomplicated; J44.9 Chronic obstructive pulmonary disease, unspecified; I50.9 Heart failure, unspecified; M19.90 Unspecified osteoarthritis, unspecified site; Z98.890 Other specified postprocedural states; Z79.82 Long term (current) use of aspirin; Z88.1 Allergy status to other antibiotic agents; Z88.2 Allergy status to sulfonamides; Z91.013 Allergy to seafood; Z91.018 Allergy to other foods
CPT/HCPCS: 36415; 80053; 81001; 83690; 85007; 85025; 85610; 85730; 86850; 86900; 86901; 93005; 93010; 99284

== ENCOUNTER 2017-07-26 08:05 | Inpatient (IN) | payer MEDICAID ==
--- NOTE | 2017-07-26 08:15 | Emergency Department Report ---
HPI - General Time Seen by Provider: 07/26/17 08:06 - HPI HPI: 52-year-old female presents to the emergency Department from home by EMS with altered mental status that was noticed upon waking this morning. She has a history of diabetes, CHF, coronary artery disease with [place], hypertension, asthma, sleep apnea. The patient was at her baseline when she went to bed last night. She was woken up by her son this morning but she was unresponsive. Allegedly, through EMS, the patient's son thought she was having some slurred speech. Since she has been in the emergency department she is mostly unresponsive and snoring but will briefly open her eyes with verbal and tactile stimuli but then immediately goes back to sleep. Blood sugar was about 100 when checked in route. She did not receive anything for her symptoms prior to presentation. ED Past Medical Hx - Past Medical History Hx Hypertension: Yes (1992) Hx Heart Attack/AMI: Yes () Hx Congestive Heart Failure: Yes Hx Diabetes: Yes Hx GERD: Yes (peptic ulcer) Hx Liver Disease: No Hx Renal Disease: No Hx Arthritis: Yes Hx Asthma: Yes Hx COPD: Yes Hx HIV: No Additional medical history: Sleep apnea using CPAP machine at night, Home 02 concentrated oxygen 2 liters, Spinal problems buldging disc, and hip problems, gets injections at [facility] with Dr. Hernández, wants to report her psychiatrist is Dr. Mynor Urrutia. Hemorrhoids - Surgical History Hx Coronary Stent: Yes (2002 (pt states she has 2 stents)) Additional Surgical History: Hysterectomy. left knee surgery - Social History Smoking Status: Never Smoker Substance Use Type: Prescribed - Medications Home Medications: Home Medications Medication Instructions Recorded Confirmed Last Taken Type Carvedilol [Coreg] 6.25 tab PO BID 06/15/13 07/26/17 10/18/15 07:00 History Losartan [Cozaar] 1 tab PO DAILY 06/15/13 07/26/17 10/18/15 07:00 History QUEtiapine [SEROquel] 200 mg PO HS 06/15/13 07/26/17 10/17/15 History Albuterol Sulfate [Proventil HFA] 2 puff IH Q4-6H PRN 07/03/13 07/26/17 11:50 History Furosemide 20 mg PO DAILY 07/03/13 07/26/17 10/18/15 07:00 History Potassium Chloride [K-Dur] 1 tab PO DAILY 07/03/13 07/26/17 10/18/15 07:00 History Fluticasone [Flonase] 2 spray NS QDAY 10/18/15 07/26/17 10/18/15 07:00 History Loratadine [Claritin] 10 mg PO DAILY 10/18/15 07/26/17 10/17/15 History Sertraline [Zoloft] 100 mg PO QDAY 10/18/15 07/26/17 10/18/15 07:00 History Tizanidine HCl [Zanaflex] 4 mg PO BID 04/16/17 07/26/17 Unknown History oxyCODONE ER [OxyCONTIN ER TAB] 20 mg PO QID 04/16/17 07/26/17 Unknown History amLODIPine [Norvasc] 10 mg PO DAILY #30 tablet 04/17/17 07/26/17 Unknown Rx ALPRAZolam [Xanax TAB] 2 mg PO BID 07/26/17 07/26/17 Unknown History Aspirin [Adult Low Dose Aspirin EC] 81 mg PO QDAY 07/26/17 07/26/17 Unknown History Escitalopram Oxalate [Lexapro] 20 mg PO QDAY 07/26/17 07/26/17 Unknown History Fluticasone/Salmeterol [Advair 1 each IH BID 07/26/17 07/26/17 Unknown History 250-50 Diskus] Gabapentin [Neurontin] 400 mg PO TID 07/26/17 07/26/17 Unknown History Nitroglycerin [Nitroglycerin Patch] 1 each TD DAILY 07/26/17 07/26/17 Unknown History Omeprazole Magnesium [PriLOSEC Otc] 20 mg PO QDAY 07/26/17 07/26/17 Unknown History Prazosin HCl 2 mg PO HS 07/26/17 07/26/17 Unknown History Topiramate [Topamax] 100 mg PO BID 07/26/17 07/26/17 Unknown History ED Review of Systems ROS: Stated complaint: AMS Other details as noted in HPI Comment: Unobtainable due to pts medical conditions Physical Exam - Physical Exam Physical Exam: GENERAL: Patient is ill-appearing and mostly unresponsive. HENT: Normocephalic. Atraumatic. Patient has moist mucous membranes. EYES: Pupils equal reactive to light bilaterally. NECK: Supple. Trachea is midline. CHEST/LUNGS: Mild coarse breath sounds on the chest. There is some tachypnea and no accessory muscle use. There is no respiratory distress noted. HEART/CARDIOVASCULAR: Regular. There is no tachycardia. There is no murmur. ABDOMEN: Abdomen is soft, nontender. Patient has normal bowel sounds. Obese habitus. SKIN: Skin is warm and dry. NEURO: Patient is sleeping and/or unresponsive but does open her eyes, move her extremities, and say some incomprehensible words with sternal rub. She has a gag reflex. MUSCULOSKELETAL: There is no tenderness or deformity. There is no evidence of acute injury. ED Course - Reevaluation(s) Reevaluation #1: NIH Stroke Scale/Score (NIHSS) from [email or web address] on 07/26/2017 All calculations should be rechecked by clinician prior to use RESULT SUMMARY: 17 points NIH Stroke Scale INPUTS: 1A: Level of consciousness > 2 = Requires repeated stimulation to arouse 1B: Ask month and age > 1 = Dysarthric/intubated/trauma/language barrier 1C: 'Blink eyes' & 'squeeze hands' > 2 = Performs 0 tasks 2: Horizontal extraocular movements > 0 = Normal 3: Visual hyde > 0 = No visual loss 4: Facial palsy > 0 = Normal symmetry 5A: Left arm motor drift > 2 = Some effort against gravity 5B: Right arm motor drift > 2 = Some effort against gravity 6A: Left leg motor drift > 2 = Some effort against gravity 6B: Right leg motor drift > 2 = Some effort against gravity 7: Limb Ataxia > 0 = No ataxia 8: Sensation > 0 = Normal; no sensory loss 9: Language/aphasia > 2 = Severe aphasia: fragmentary expression, inference needed, cannot identify materials 10: Dysarthria > 2 = Severe Dysarthria: unintelligble slurring or out of proportion to dysphasia 11: Extinction/inattention > 0 = No abnormality This NIH stroke scale was done secondary to the patient presenting with altered mental status. However, it is not a accurate score as the patient has altered mental status that makes us unable to evaluate her extremity motion, subjective sensation, her visual hyde or extraocular motion appropriately. However the patient would not be a TPA candidate anyways as her symptoms were first noticed this morning when she was woken up by her son and therefore there is no last known well time. 07/26/17 15:07 - ABG Interpretation Ph: 7.248 PCO2: 53 PO2: 96 Bicarbonate: 23 Interpretation: respiratory acidosis ED Medical Decision Making - Lab Data Result diagrams: 07/26/17 08:25 07/26/17 08:25 - EKG Data -: EKG Interpreted by Me EKG shows normal: sinus rhythm, axis, intervals, QRS complexes, ST-T waves ( flattening of T waves) Rate: tachycardia (102 bpm) - EKG Data When compared to previous EKG there are: previous EKG unavailable Interpretation: other (sinus with mild tachycardia, flattening of the T waves) - Radiology Data Radiology results: report reviewed, image reviewed interpreted by me: Chest x-ray shows some pulmonary vascular congestion. No obvious pneumonia. No pneumothorax. CRANIAL CT SCAN: Stroke symptoms. Serial contiguous axial images were obtained through the cranium. Intravenous contrast material was not administered. The ventricles are normal in size and appearance. There is no mass effect or midline shift. No areas of abnormally increased or decreased attenuation are seen. No mass lesion is seen. The mastoid air cells and visualized portions of the sinuses are normal. IMPRESSION: Cranial CT scan within normal limits. Called to Dr. De Jesus at 8:12 AM. Transcribed By: ZANE Dictated By: GABINO SIERRA MD Electronically Authenticated By: GABINO SIERRA MD Signed Date/Time: 07/26/17 0800 - Medical Decision Making Patient presented with altered mental status after her son woke her up this morning around 6 AM and was unable to actually wake her up or get her to respond. Same is true when she arrived to the emergency department. The patient is lethargic and is snoring but you are able to arouse her with a sternal rub or some painful stimuli. She was seen moving her extremities to painful stimuli as well. Patient has a gag reflex, has been maintaining good oxygenation without any supplemental oxygen and does not appear in any respiratory distress and therefore was not intubated. She was given a GCS of 9 as she will open her eyes to painful stimuli, will localize painful stimuli, and will make some unintelligible words when she is aroused. CT of the head does not show any bleed, shift, mass or any other acute process. Chest x-ray shows some mild vascular congestion. Labs are mostly unremarkable except for the patient has a ammonia level of 80 which is most likely the source of her altered mental status. The son was later bedside explains that she has a history of bipolar disorder and schizophrenia and is on some antipsychotic medications, which could be the cause of the hyperammonemia. The patient was given lactulose per rectum. She has started to show some improvement since getting this medication. However the patient will still be admitted to the hospital for altered mental status and has been accepted for admission by the hospitalist, Dr Anderson. - Differential Diagnosis Hyperammonemia, TIA, CVA, Hyper/hypoglycemia, Dysrythmia Critical Care Time: No Critical care attestation.: If time is entered above; I have spent that time in minutes in the direct care of this critically ill patient, excluding procedure time. ED Disposition Clinical Impression: Respiratory acidosis, Hyperammonemia Altered mental status Qualifiers: Altered mental status type: unspecified Qualified Code(s): R41.82 - Altered mental status, unspecified COPD (chronic obstructive pulmonary disease) Qualifiers: COPD type: COPD with acute exacerbation Qualified Code(s): J44.1 - Chronic obstructive pulmonary disease with (acute) exacerbation Disposition: DC-09 OP ADMIT IP TO THIS HOSP Is pt being admited?: Yes Condition: Serious Instructions: Chronic Obstructive Pulmonary Disease (ED) Referrals: PRIMARY CARE, [Primary Care Provider] - 3-5 Days
--- NOTE | 2017-07-26 08:20 | Cat Scan Report ---
CRANIAL CT SCAN: Stroke symptoms. Serial contiguous axial images were obtained through the cranium. Intravenous contrast material was not administered. The ventricles are normal in size and appearance. There is no mass effect or midline shift. No areas of abnormally increased or decreased attenuation are seen. No mass lesion is seen. The mastoid air cells and visualized portions of the sinuses are normal. IMPRESSION: Cranial CT scan within normal limits. Called to Dr. De Jesus at 8:12 AM.
[2017-07-26 08:33] LABS: Basophils % (Auto) 0.8 % (0.0-1.8); Eosinophils # (Auto) 0.4 K/mm3 (0.0-0.4); Eosinophils % (Auto) 6.4 % (0.0-4.3); Hematocrit 41.5 % (30.3-42.9); Hemoglobin 13.1 gm/dl (10.1-14.3); Lymphocytes % (Auto) 33.3 % (13.4-35.0); Mean Corpuscular HGB Conc 32 % (30-34); Mean Corpuscular Volume 76 fl (79-97); Monocytes # (Auto) 0.6 K/mm3 (0.0-0.8); Monocytes % (Auto) 10.6 % (0.0-7.3); Platelet Count 204 K/mm3 (140-440); Red Blood Count 5.44 M/mm3 (3.65-5.03); Red Cell Distribution Width 15.3 % (13.2-15.2)
[2017-07-26 08:40] LABS: Mean Corpuscular Hemoglobin 24 pg (28-32)
[2017-07-26 08:44] LABS: INR 0.94 (0.87-1.13)
[2017-07-26 08:45] LABS: Partial Thromboplastin Time 33.6 Sec. (24.2-36.6); Thrombin Time 16.5 Sec. (15.1-19.6)
[2017-07-26 08:52] LABS: Creatine Kinase MB 1.1 ng/mL (0.0-4.0)
[2017-07-26 08:53] LABS: Albumin 3.8 g/dL (3.9-5); Calcium 9.3 mg/dL (8.4-10.2)
[2017-07-26] MEDS ORDERED: NACL 0.9% 500 ML 500 ML ONE (09:08)
[2017-07-26] MEDS ORDERED: NACL 0.9% 500 ML 500 ML IV ONE (09:12)
[2017-07-26 10:06] LABS: Bilirubin,Urine NEG (Negative); Blood,Urine NEG (Negative); Color,Urine Straw (Yellow); Protein,Urine <15 mg/dL mg/dL (Negative); Urobilinogen,Urine < 2.0 mg/dL (<2.0); WBC,Urine < 1.0 /HPF (0.0-6.0)
[2017-07-26 10:10] LABS: RBC,Urine < 1.0 /HPF (0.0-6.0)
[2017-07-26 10:12] LABS: Amphetamine Screen,Urine PRESUMPTIVE NEGATIVE; Benzodiazepines Screen,Urine PRESUMPTIVE NEGATIVE; Cannabinoid Screen,Urine PRESUMPTIVE NEGATIVE; Cocaine Screen,Urine PRESUMPTIVE NEGATIVE; Methadone Screen,Urine PRESUMPTIVE NEGATIVE; Opiate Screen,Urine PRESUMPTIVE NEGATIVE
[2017-07-26] MEDS ORDERED: CEPHULAC PR NR (11:00)
--- NOTE | 2017-07-26 11:19 | XRay Report ---
Portable chest: SOB. Lungs are hypoventilated. There is suspicion of mild vascular congestion. No focal findings. Compared to prior exam of April 16, 2017 the pulmonary markings are increased. The heart is normal in size for this degree of inspiration. Impression: Mild vascular congestion.
--- NOTE | 2017-07-26 11:20 | History and Physical Report ---
History of Present Illness Chief complaint: I dont feel good History of present illness: 52 YO Female with CHF, DM, Obesity Hypoventillation Syndrome, MIKE noncompliant with CPAP, GERD, OA, Asthma, COPD presents to ED for evaluation. Pt is confused , and lethargic and unable to provide history. Pt history provided by patient son. As per the patient son, the patient was in her usual state of health last night, but this morning, the patient was found to be unresponsive, and difficult to awake from sleep. EMS was notified and upon arrival the patient was found to have confusion. Pt was transported to [facility] for further care and evaluation. Pt seen and evaluated in ED and found to have Encephalopathy, Hyperammonemia, as well as Acute Respiratory Failure. The patient is able to protect her airway. Pt admitted to telemetry. No reports of fever, chills, CP, Palpitations, NVD, Trauma, leg swelling, calf pain, prolonged travel/immobility , individual/family history of DVT/PE, Productive cough, neck pain, syncope, unintentional weight loss, night sweats, or skin rashes. Past History Past Medical History: acute CT, arthritis, COPD, diabetes, GERD, heart failure, hypertension Past Surgical History: hysterectomy, total knee replacement, Other (Stent placement) Social history: single Family history: hypertension Medications and Allergies Allergies Allergy/AdvReac Type Severity Reaction Status Date / Time azithromycin Allergy Shortness Verified 08/19/16 12:34 of Breath meloxicam Allergy Rash Verified 08/19/16 12:34 cephalexin monohydrate AdvReac Itching Verified 08/19/16 12:34 [From Keflex] pregabalin [From Lyrica] AdvReac Unknown Verified 08/19/16 12:34 shellfish derived AdvReac GI UPSET Verified 08/19/16 12:34 Sulfa (Sulfonamide AdvReac Itching Verified 08/19/16 12:34 Antibiotics) tomato [Tomato] AdvReac Unknown Verified 08/19/16 12:34 Home Medications Medication Instructions Recorded Confirmed Last Taken Type Carvedilol [Coreg] 6.25 tab PO BID 06/15/13 07/26/17 10/18/15 07:00 History Losartan [Cozaar] 1 tab PO DAILY 06/15/13 07/26/17 10/18/15 07:00 History QUEtiapine [SEROquel] 200 mg PO HS 06/15/13 07/26/17 10/17/15 History Albuterol Sulfate [Proventil HFA] 2 puff IH Q4-6H PRN 07/03/13 07/26/17 11:50 History Furosemide 20 mg PO DAILY 07/03/13 07/26/17 10/18/15 07:00 History Potassium Chloride [K-Dur] 1 tab PO DAILY 07/03/13 07/26/17 10/18/15 07:00 History Fluticasone [Flonase] 2 spray NS QDAY 10/18/15 07/26/17 10/18/15 07:00 History Loratadine [Claritin] 10 mg PO DAILY 10/18/15 07/26/17 10/17/15 History Sertraline [Zoloft] 100 mg PO QDAY 10/18/15 07/26/17 10/18/15 07:00 History Tizanidine HCl [Zanaflex] 4 mg PO BID 04/16/17 07/26/17 Unknown History oxyCODONE ER [OxyCONTIN ER TAB] 20 mg PO QID 04/16/17 07/26/17 Unknown History amLODIPine [Norvasc] 10 mg PO DAILY #30 tablet 04/17/17 07/26/17 Unknown Rx ALPRAZolam [Xanax TAB] 2 mg PO BID 07/26/17 07/26/17 Unknown History Aspirin [Adult Low Dose Aspirin EC] 81 mg PO QDAY 07/26/17 07/26/17 Unknown History Escitalopram Oxalate [Lexapro] 20 mg PO QDAY 07/26/17 07/26/17 Unknown History Fluticasone/Salmeterol [Advair 1 each IH BID 07/26/17 07/26/17 Unknown History 250-50 Diskus] Gabapentin [Neurontin] 400 mg PO TID 07/26/17 07/26/17 Unknown History Nitroglycerin [Nitroglycerin Patch] 1 each TD DAILY 07/26/17 07/26/17 Unknown History Omeprazole Magnesium [PriLOSEC Otc] 20 mg PO QDAY 07/26/17 07/26/17 Unknown History Prazosin HCl 2 mg PO HS 07/26/17 07/26/17 Unknown History Topiramate [Topamax] 100 mg PO BID 07/26/17 07/26/17 Unknown History Active Meds: Active Medications Lactulose (Cephulac) 200 gm [place] ONCE NR Stop: 07/26/17 12:00 Review of Systems ROS unobtainable: due to mental status Exam - Constitutional Vitals: Temp Pulse Resp BP Pulse Ox 97.4 F L 91 H 11 L 97/50 98 07/26/17 08:53 07/26/17 10:30 07/26/17 10:30 07/26/17 10:30 07/26/17 10:30 General appearance: Present: mild distress, obese - EENT Eyes: Present: miosis ENT: hearing intact, clear oral mucosa - Neck Neck: Present: supple, normal ROM - Respiratory Respiratory effort: labored Respiratory: bilateral: diminished, rhonchi - Cardiovascular Heart Sounds: Present: S1 & S2. Absent: rub, click - Extremities Extremities: pulses symmetrical, No edema Peripheral Pulses: within normal limits - Abdominal General gastrointestinal: Present: soft, non-tender, non-distended, normal bowel sounds Female genitourinary: Present: normal - Integumentary Integumentary: Present: clear, warm, dry - Musculoskeletal Musculoskeletal: generalized weakness - Psychiatric Psychiatric: no intact judgment & insight, no memory intact, other (lethargic to stuporous) - Neurologic Neurologic: moves all extremities, no gait normal Results - Labs CBC & Chem 7: 07/26/17 08:25 07/26/17 08:25 Labs: Abnormal lab results 07/26/17 07/26/17 07/26/17 Range/Units 08:25 08:25 08:25 RBC 5.44 H (3.65-5.03) M/mm3 MCV 76 L (79-97) fl MCH 24 L (28-32) pg RDW 15.3 H (13.2-15.2) % [place] % (Auto) 10.6 H (0.0-7.3) % Eos % (Auto) 6.4 H (0.0-4.3) % POC ABG pH (7.35-7.45) POC ABG pCO2 (35-45) BUN 21 H (7-17) mg/dL Creatinine 1.4 H (0.7-1.2) mg/dL Glucose 121 H (65-100) mg/dL POC Glucose (70-105) Ammonia 80.0 H (25-60) umol/L Albumin 3.8 L (3.9-5) g/dL 07/26/17 07/26/17 Range/Units 08:43 09:04 RBC (3.65-5.03) M/mm3 MCV (79-97) fl MCH (28-32) pg RDW (13.2-15.2) % [place] % (Auto) (0.0-7.3) % Eos % (Auto) (0.0-4.3) % POC ABG pH 7.248 L (7.35-7.45) POC ABG pCO2 53.9 H (35-45) BUN (7-17) mg/dL Creatinine (0.7-1.2) mg/dL Glucose (65-100) mg/dL POC Glucose 115 H (70-105) Ammonia (25-60) umol/L Albumin (3.9-5) g/dL Assessment and Plan - Patient Problems (1) Acute respiratory failure Current Visit: Yes Status: Acute Qualifiers: Respiratory failure complication: hypoxia Qualified Code(s): J96.01 - Acute respiratory failure with hypoxia Plan to address problem: Supplemental oxygen, nebulizer therapy, aspiration precautions, NIPPV as clinically indicated, (2) Obesity hypoventilation syndrome Current Visit: Yes Status: Acute Plan to address problem: Supplemental oxygen, NIPPV as clinically indicated, pulmonary toilet, Incentive spirometry, balanced diet, increased physical activity at discharge. (3) Encephalopathy Current Visit: Yes Status: Acute Plan to address problem: CT Head, neuro checks, seizure precautions, (4) CHF (congestive heart failure) Current Visit: Yes Status: Suspected Qualifiers: Heart failure type: diastolic Heart failure chronicity: acute on chronic Qualified Code(s): I50.33 - Acute on chronic diastolic (congestive) heart failure Plan to address problem: Monitor uop q shift, afterload reduction, strict I/O, Echo to assess EF as well as Diastolic function, BNP, Chest X ray, (5) COPD (chronic obstructive pulmonary disease) Current Visit: Yes Status: Acute Qualifiers: COPD type: COPD with acute exacerbation Qualified Code(s): J44.1 - Chronic obstructive pulmonary disease with (acute) exacerbation Plan to address problem: supplemental oxygen, nebulizer therapy, supportive care, (6) ARF (acute renal failure) Current Visit: Yes Status: Acute Qualifiers: Acute renal failure type: with acute tubular necrosis Qualified Code(s): N17.0 - Acute kidney failure with tubular necrosis Plan to address problem: IVF resuscitation, monitor uop q shift, repeat bmp to monitor serum creatnine. (7) DVT prophylaxis Current Visit: Yes Status: Acute
[2017-07-26] MEDS ORDERED: ZOFRAN IV PRN (15:19)
[2017-07-26] MEDS ORDERED: TYLENOL PO PRN (15:19)
[2017-07-26] MEDS ORDERED: SODIUM CHLORIDE FLUSH SYRINGE 10 ML IV PRN (15:19)
[2017-07-26] MEDS ORDERED: PROVENTIL IH PRN (15:19)
[2017-07-26] MEDS: SODIUM CHLORIDE FLUSH SYRINGE 10 ML IV SCH (22:14)
[2017-07-27] MEDS: SODIUM CHLORIDE FLUSH SYRINGE 10 ML IV SCH ×2 (10:25→21:27)
[2017-07-27] MEDS ORDERED: PROAIR IH PRN (12:35)
--- NOTE | 2017-07-27 12:43 | Progress Note ---
Assessment and Plan Assessment and plan: Acute on chronic respiratory failure Continue Supplemental oxygen, nebulizer therapy, NIPPV as clinically indicated. Patient is on home O2 pulmonary consultation pending. Etiology secondary to OHS/MIKE/COPD exacerbation. Obesity hypoventilation syndrome Supplemental oxygen, NIPPV as clinically indicated, pulmonary toilet, Incentive spirometry, balanced diet, increased physical activity at discharge. CPAP at night Encephalopathy CT Head negative, continue neuro checks, seizure precautions. Patient with elevated ammonia level but denies any history of liver disease. Check abdominal ultrasound, LFTs and hepatitis panel for further evaluation. Continue lactulose as needed. Follow-up ammonia level. Mild CHF (congestive heart failure) Patient with likely mild decompensation as demonstrated by chest x-ray. Monitor uop q shift, afterload reduction, strict I/O, Echo to assess EF as well as Diastolic function, check BNP, Chest X ray, COPD (chronic obstructive pulmonary disease) exacerbation Continue supplemental oxygen, nebulizer therapy, supportive care, BiPAP as clinically indicated. Add IV/systemic steroids. ARF (acute renal failure) IVF resuscitation, monitor uop q shift, repeat bmp to monitor serum creatnine. Creatinine May 2017 was normal. Peptic ulcer disease. Patient on PPI daily. Rectal carcinoid. Consider oncology consultation. Bipolar disorder. Resume home medications. DVT prophylaxis History Interval history: Patient is more awake and alert. No new complaints. Hospitalist Physical - Constitutional Vitals: Temp Pulse Resp BP Pulse Ox 98.4 F 91 H 18 142/74 96 07/27/17 07:58 07/27/17 07:58 07/27/17 08:24 07/27/17 07:58 07/27/17 08:24 General appearance: Present: no acute distress, obese - EENT Eyes: Present: PERRL, EOM intact ENT: hearing intact, clear oral mucosa, dentition normal - Neck Neck: Present: supple, normal ROM - Respiratory Respiratory effort: normal Respiratory: bilateral: CTA - Cardiovascular Rhythm: regular Heart Sounds: Present: S1 & S2. Absent: gallop, rub - Extremities Extremities: no ischemia, No edema, Full ROM - Abdominal General gastrointestinal: soft, non-tender, non-distended, normal bowel sounds - Integumentary Integumentary: Present: clear, warm, dry - Neurologic Neurologic: CNII-XII intact, moves all extremities Results - Labs CBC & Chem 7: 07/26/17 08:25 07/26/17 08:25 Labs: Laboratory Last Values WBC 6.1 K/mm3 (4.5-11.0) 07/26/17 08:25 RBC 5.44 M/mm3 (3.65-5.03) H 07/26/17 08:25 Hgb 13.1 gm/dl (10.1-14.3) 07/26/17 08:25 Hct 41.5 % (30.3-42.9) 07/26/17 08:25 MCV 76 fl (79-97) L 07/26/17 08:25 MCH 24 pg (28-32) L 07/26/17 08:25 MCHC 32 % (30-34) 07/26/17 08:25 RDW 15.3 % (13.2-15.2) H 07/26/17 08:25 Plt Count 204 K/mm3 (140-440) 07/26/17 08:25 Lymph % (Auto) 33.3 % (13.4-35.0) 07/26/17 08:25 [place] % (Auto) 10.6 % (0.0-7.3) H 07/26/17 08:25 Eos % (Auto) 6.4 % (0.0-4.3) H 07/26/17 08:25 Baso % (Auto) 0.8 % (0.0-1.8) 07/26/17 08:25 Lymph # 2.0 K/mm3 (1.2-5.4) 07/26/17 08:25 [place] # 0.6 K/mm3 (0.0-0.8) 07/26/17 08:25 Eos # 0.4 K/mm3 (0.0-0.4) 07/26/17 08:25 Baso # 0.0 K/mm3 (0.0-0.1) 07/26/17 08:25 Seg Neutrophils % 48.9 % (40.0-70.0) 07/26/17 08:25 Seg Neutrophils # 3.0 K/mm3 (1.8-7.7) 07/26/17 08:25 PT 13.0 Sec. (12.2-14.9) 07/26/17 08:25 INR 0.94 (0.87-1.13) 07/26/17 08:25 APTT 33.6 Sec. (24.2-36.6) 07/26/17 08:25 Thrombin Time 16.5 Sec. (15.1-19.6) 07/26/17 08:25 D-Dimer 197.93 ng/mlDDU (0-234) 07/26/17 08:25 POC ABG pH 7.248 (7.35-7.45) L 07/26/17 09:04 POC ABG pCO2 53.9 (35-45) H 07/26/17 09:04 POC ABG pO2 96 (80-105) 07/26/17 09:04 POC ABG HCO3 23.5 07/26/17 09:04 POC ABG Total CO2 25 07/26/17 09:04 POC ABG O2 Sat 96 07/26/17 09:04 POC ABG Base Excess -4 07/26/17 09:04 FiO2 28 % 07/26/17 09:04 Sodium 139 mmol/L (137-145) 07/26/17 08:25 Potassium 4.0 mmol/L (3.6-5.0) 07/26/17 08:25 Chloride 102.0 mmol/L (98-107) 07/26/17 08:25 Carbon Dioxide 23 mmol/L (22-30) 07/26/17 08:25 Anion Gap 18 mmol/L 07/26/17 08:25 BUN 21 mg/dL (7-17) H 07/26/17 08:25 Creatinine 1.4 mg/dL (0.7-1.2) H 07/26/17 08:25 Estimated GFR 48 ml/min 07/26/17 08:25 BUN/Creatinine Ratio 15 % 07/26/17 08:25 Glucose 121 mg/dL (65-100) H 07/26/17 08:25 POC Glucose 90 (70-105) 07/27/17 06:25 Calcium 9.3 mg/dL (8.4-10.2) 07/26/17 08:25 Total Bilirubin 0.30 mg/dL (0.1-1.2) 07/26/17 08:25 AST 20 units/L (5-40) 07/26/17 08:25 ALT 27 units/L (7-56) 07/26/17 08:25 Alkaline Phosphatase 54 units/L (35-129) 07/26/17 08:25 Ammonia 80.0 umol/L (25-60) H 07/26/17 08:25 Total Creatine Kinase 45 units/L (30-135) 07/26/17 08:25 CK-MB (CK-2) 1.1 ng/mL (0.0-4.0) 07/26/17 08:25 CK-MB (CK-2) Rel Index 2.4 (0-4) 07/26/17 08:25 Troponin T < 0.010 ng/mL (0.00-0.029) 07/26/17 14:04 NT-Pro-B Natriuret Pep 18.93 pg/mL (0-900) 07/26/17 08:25 Total Protein 6.7 g/dL (6.3-8.2) 07/26/17 08:25 Albumin 3.8 g/dL (3.9-5) L 07/26/17 08:25 Albumin/Globulin Ratio 1.3 % 07/26/17 08:25 TSH 1.950 mlU/mL (0.270-4.200) 07/26/17 08:25 Urine Color Straw (Yellow) 07/26/17 09:37 Urine Turbidity Clear (Clear) 07/26/17 09:37 Urine pH 7.0 (5.0-7.0) 07/26/17 09:37 Ur Specific [place] 1.005 (1.003-1.030) 07/26/17 09:37 Urine Protein <15 mg/dl mg/dL (Negative) 07/26/17 09:37 Urine Glucose (UA) Neg mg/dL (Negative) 07/26/17 09:37 Urine Ketones Neg mg/dL (Negative) 07/26/17 09:37 Urine Blood Neg (Negative) 07/26/17 09:37 Urine Nitrite Neg (Negative) 07/26/17 09:37 Urine Bilirubin Neg (Negative) 07/26/17 09:37 Urine Urobilinogen < 2.0 mg/dL (<2.0) 07/26/17 09:37 Ur Leukocyte Esterase Neg (Negative) 07/26/17 09:37 Urine WBC (Auto) < 1.0 /HPF (0.0-6.0) 07/26/17 09:37 Urine RBC (Auto) < 1.0 /HPF (0.0-6.0) 07/26/17 09:37 U Epithel Cells (Auto) < 1.0 /HPF (0-13.0) 07/26/17 09:37 Urine Opiates Screen Presumptive negative 07/26/17 09:37 Urine Methadone Screen Presumptive negative 07/26/17 09:37 Ur Barbiturates Screen Presumptive negative 07/26/17 09:37 Ur Phencyclidine Scrn Presumptive negative 07/26/17 09:37 Ur Amphetamines Screen Presumptive negative 07/26/17 09:37 U Benzodiazepines Scrn Presumptive negative 07/26/17 09:37 Urine Cocaine Screen Presumptive negative 07/26/17 09:37 U Marijuana (THC) Screen Presumptive negative 07/26/17 09:37 Drugs of Abuse Note Disclamer 07/26/17 09:37 Plasma/Serum Alcohol < 0.01 % (0-0.07) 07/26/17 08:25 Blood Type O POSITIVE 07/26/17 08:25 Antibody Screen Negative 07/26/17 08:25
[2017-07-27] MEDS ORDERED: PROVENTIL IH PRN (13:08)
[2017-07-27 14:15] LABS: Alanine Aminotransferase 29 units/L (7-56)
[2017-07-27 14:16] LABS: Bilirubin,Direct < 0.2 mg/dL (0-0.2)
[2017-07-27 14:25] LABS: Hepatitis A Antibody IgM Reactive (NonReactive); Hepatitis B Core IgM Non-Reactive (NonReactive); Hepatitis B Surface Antigen Non-Reactive (Negative); Hepatitis C Virus Antibody Non-Reactive (NonReactive)
[2017-07-27] MEDS: NEURONTIN PO SCH ×2 (15:57→21:22)
[2017-07-27] MEDS: OxyCONTIN PO SCH ×3 (15:57→21:24)
[2017-07-27] MEDS: TOPAMAX PO SCH (21:23)
[2017-07-27] MEDS: XANAX PO SCH (21:23)
[2017-07-27] MEDS: MINIPRESS PO SCH (21:24)
[2017-07-27] MEDS: COREG PO SCH (21:24)
[2017-07-27] MEDS ORDERED: FLUTICASONE IH SCH (22:00)
[2017-07-27] MEDS ORDERED: PRAZOSIN HCL 2 MG PO SCH (22:00)
[2017-07-27] MEDS ORDERED: SALMETEROL IH SCH (22:00)
[2017-07-27] MEDS ORDERED: NON-FORMULARY (Alprazolam [Xanax Tab] 2 MG) PO SCH (22:00)
[2017-07-27] MEDS: BROVANA NEBU IH SCH (22:39)
[2017-07-27] MEDS: PULMICORT IH SCH (22:39)
[2017-07-28 07:22] LABS: Basophils # (Auto) 0.1 K/mm3 (0.0-0.1); Basophils % (Auto) 0.8 % (0.0-1.8); Eosinophils # (Auto) 0.4 K/mm3 (0.0-0.4); Eosinophils % (Auto) 6.2 % (0.0-4.3); Hematocrit 41.4 % (30.3-42.9); Lymphocytes # (Auto) 1.6 K/mm3 (1.2-5.4); Lymphocytes % (Auto) 21.9 % (13.4-35.0); Mean Corpuscular HGB Conc 31 % (30-34); Mean Corpuscular Volume 77 fl (79-97); Monocytes # (Auto) 0.7 K/mm3 (0.0-0.8); Monocytes % (Auto) 9.7 % (0.0-7.3); Platelet Count 201 K/mm3 (140-440); Red Blood Count 5.41 M/mm3 (3.65-5.03); Red Cell Distribution Width 15.1 % (13.2-15.2)
[2017-07-28 07:26] LABS: Mean Corpuscular Hemoglobin 24 pg (28-32)
[2017-07-28 07:45] LABS: BUN/Creatinine Ratio 13; Blood Urea Nitrogen 10 mg/dL (7-17); Calcium 9.2 mg/dL (8.4-10.2); Hemolysis Index 4
--- NOTE | 2017-07-28 09:05 | Ultrasound Report ---
FINAL REPORT PROCEDURE: US ABDOMEN COMPLETE TECHNIQUE: Real-time sonography in multiple planes of the abdomen was performed with image documentation. CPT 77428 HISTORY: r/o liver disease, cirrhosis COMPARISON: No prior studies are available for comparison. FINDINGS: Liver: The liver size is normal. There is fatty infiltration of the liver. Gallbladder: The gallbladder lumen has a normal appearance. There is hyperechoic material layering consistent with sludge. No stones are identified. The gallbladder wall thickness is 1 millimeter. Intrahepatic bile ducts: Normal caliber . Extrahepatic bile ducts: Normal caliber. Pancreas: Not well visualized on this study. Aorta: Visualized portions appear normal. IVC: Visualized portions appear normal. RIGHT kidney: Normal echotexture. No focal renal mass, calculus, or hydronephrosis. Length: 11.6cm. LEFT kidney: Normal echotexture. No focal renal mass, calculus, or hydronephrosis . Length: 11.3cm. Spleen: Normal size and echotexture. No focal lesions. Intraperitoneal fluid: None . Other: None . IMPRESSION: The liver is fatty infiltrated. Sludge within the gallbladder lumen is suspected. The common bile duct is normal and measures 2.7 millimeters..
[2017-07-28] MEDS ORDERED: NON-FORMULARY (Omeprazole Magnesium [Prilosec Otc] 20 MG) PO SCH (10:00)
[2017-07-28] MEDS ORDERED: NON-FORMULARY (Escitalopram Oxalate [Lexapro] 20 MG) PO SCH (10:00)
[2017-07-28] MEDS: COREG PO SCH ×2 (10:58→21:19)
[2017-07-28] MEDS: NITRO DUR TD SCH (10:58)
[2017-07-28] MEDS: CLARITIN PO SCH (10:58)
[2017-07-28] MEDS: LASIX PO SCH (10:58)
[2017-07-28] MEDS: PROTONIX PO SCH (10:58)
[2017-07-28] MEDS: K-DUR PO SCH (10:58)
[2017-07-28] MEDS: NEURONTIN PO SCH ×3 (10:59→21:19)
[2017-07-28] MEDS: HALFPRIN EC PO SCH (10:59)
[2017-07-28] MEDS: ZOLOFT PO SCH (10:59)
[2017-07-28] MEDS: NORVASC PO SCH (10:59)
[2017-07-28] MEDS: LEXAPRO PO SCH (10:59)
[2017-07-28] MEDS: TOPAMAX PO SCH ×2 (10:59→21:21)
[2017-07-28] MEDS: COZAAR PO SCH (10:59)
[2017-07-28] MEDS: SODIUM CHLORIDE FLUSH SYRINGE 10 ML IV SCH ×2 (11:00→21:21)
[2017-07-28] MEDS: OxyCONTIN PO SCH ×3 (11:00→21:20)
[2017-07-28] MEDS: XANAX PO SCH ×3 (11:00→21:21)
--- NOTE | 2017-07-28 11:54 | Progress Note ---
Assessment and Plan Assessment and plan: Acute on chronic respiratory failure Continue Supplemental oxygen, nebulizer therapy, NIPPV as clinically indicated. Patient is on home O2 pulmonary consultation pending. Etiology secondary to OHS/MIKE/COPD exacerbation. Obesity hypoventilation syndrome Supplemental oxygen, NIPPV as clinically indicated, pulmonary toilet, Incentive spirometry, balanced diet, increased physical activity at discharge. CPAP at night Encephalopathy I suspect etiology may be secondary to polypharmacy. We will decrease and/or DC OxyContin and Xanax. CT Head negative, continue neuro checks, seizure precautions. Patient with elevated ammonia level but denies any history of liver disease and abdominal ultrasound negative. LFTs within normal limits but hepatitis panel revealed acute hepatitis A infection. Self-limiting and continue supportive care. Continue lactulose as needed. Follow-up ammonia level. Hepatitis A infection. Self-limiting/Supportive care. Consider GI consultation. Mild CHF (congestive heart failure) Patient with likely mild decompensation as demonstrated by chest x-ray. Monitor uop q shift, afterload reduction, strict I/O, Echo to assess EF as well as Diastolic function, check BNP, Chest X ray, COPD (chronic obstructive pulmonary disease) exacerbation Continue supplemental oxygen, nebulizer therapy, supportive care, BiPAP as clinically indicated. Add IV/systemic steroids. ARF (acute renal failure) IVF resuscitation, monitor uop q shift, repeat bmp to monitor serum creatnine. Creatinine May 2017 was normal. Peptic ulcer disease. Patient on PPI daily. Rectal carcinoid. Consider oncology consultation. Bipolar disorder. Resume home medications. DVT prophylaxis History Interval history: Patient is somnolent and lethargic but arousable to painful stimuli and voice. Alert and oriented 3. Hospitalist Physical - Constitutional Vitals: Temp Pulse Resp BP Pulse Ox 98.2 F 112 H 20 169/86 97 07/28/17 05:08 07/28/17 07:00 07/28/17 11:33 07/28/17 05:08 07/28/17 11:33 General appearance: Present: no acute distress, obese - EENT Eyes: Present: PERRL, EOM intact ENT: hearing intact, clear oral mucosa, dentition normal - Neck Neck: Present: supple, normal ROM - Respiratory Respiratory effort: normal Respiratory: bilateral: CTA - Cardiovascular Rhythm: regular Heart Sounds: Present: S1 & S2. Absent: gallop, rub - Extremities Extremities: no ischemia, No edema, Full ROM - Abdominal General gastrointestinal: soft, non-tender, non-distended, normal bowel sounds - Integumentary Integumentary: Present: clear, warm, dry - Neurologic Neurologic: CNII-XII intact, moves all extremities Results - Labs CBC & Chem 7: 07/28/17 07:07 07/28/17 07:07 Labs: Laboratory Last Values WBC 7.2 K/mm3 (4.5-11.0) 07/28/17 07:07 RBC 5.41 M/mm3 (3.65-5.03) H 07/28/17 07:07 Hgb 13.0 gm/dl (10.1-14.3) 07/28/17 07:07 Hct 41.4 % (30.3-42.9) 07/28/17 07:07 MCV 77 fl (79-97) L 07/28/17 07:07 MCH 24 pg (28-32) L 07/28/17 07:07 MCHC 31 % (30-34) 07/28/17 07:07 RDW 15.1 % (13.2-15.2) 07/28/17 07:07 Plt Count 201 K/mm3 (140-440) 07/28/17 07:07 Lymph % (Auto) 21.9 % (13.4-35.0) 07/28/17 07:07 [place] % (Auto) 9.7 % (0.0-7.3) H 07/28/17 07:07 Eos % (Auto) 6.2 % (0.0-4.3) H 07/28/17 07:07 Baso % (Auto) 0.8 % (0.0-1.8) 07/28/17 07:07 Lymph # 1.6 K/mm3 (1.2-5.4) 07/28/17 07:07 [place] # 0.7 K/mm3 (0.0-0.8) 07/28/17 07:07 Eos # 0.4 K/mm3 (0.0-0.4) 07/28/17 07:07 Baso # 0.1 K/mm3 (0.0-0.1) 07/28/17 07:07 Seg Neutrophils % 61.4 % (40.0-70.0) 07/28/17 07:07 Seg Neutrophils # 4.4 K/mm3 (1.8-7.7) 07/28/17 07:07 PT 13.0 Sec. (12.2-14.9) 07/26/17 08:25 INR 0.94 (0.87-1.13) 07/26/17 08:25 APTT 33.6 Sec. (24.2-36.6) 07/26/17 08:25 Thrombin Time 16.5 Sec. (15.1-19.6) 07/26/17 08:25 D-Dimer 197.93 ng/mlDDU (0-234) 07/26/17 08:25 POC ABG pH 7.248 (7.35-7.45) L 07/26/17 09:04 POC ABG pCO2 53.9 (35-45) H 07/26/17 09:04 POC ABG pO2 96 (80-105) 07/26/17 09:04 POC ABG HCO3 23.5 07/26/17 09:04 POC ABG Total CO2 25 07/26/17 09:04 POC ABG O2 Sat 96 07/26/17 09:04 POC ABG Base Excess -4 07/26/17 09:04 FiO2 28 % 07/26/17 09:04 Sodium 138 mmol/L (137-145) 07/28/17 07:07 Potassium 4.3 mmol/L (3.6-5.0) 07/28/17 07:07 Chloride 100.6 mmol/L (98-107) 07/28/17 07:07 Carbon Dioxide 28 mmol/L (22-30) 07/28/17 07:07 Anion Gap 14 mmol/L 07/28/17 07:07 BUN 10 mg/dL (7-17) 07/28/17 07:07 Creatinine 0.8 mg/dL (0.7-1.2) 07/28/17 07:07 Estimated GFR > 60 ml/min 07/28/17 07:07 BUN/Creatinine Ratio 13 % 07/28/17 07:07 Glucose 119 mg/dL (65-100) H 07/28/17 07:07 POC Glucose 146 (70-105) H 07/28/17 03:56 Calcium 9.2 mg/dL (8.4-10.2) 07/28/17 07:07 Total Bilirubin 0.30 mg/dL (0.1-1.2) 07/27/17 13:02 Direct Bilirubin < 0.2 mg/dL (0-0.2) 07/27/17 13:02 Indirect Bilirubin 0.1 mg/dL 07/27/17 13:02 AST 21 units/L (5-40) 07/27/17 13:02 ALT 29 units/L (7-56) 07/27/17 13:02 Alkaline Phosphatase 55 units/L (35-129) 07/27/17 13:02 Ammonia 106.0 umol/L (25-60) H 07/28/17 07:07 Total Creatine Kinase 45 units/L (30-135) 07/26/17 08:25 CK-MB (CK-2) 1.1 ng/mL (0.0-4.0) 07/26/17 08:25 CK-MB (CK-2) Rel Index 2.4 (0-4) 07/26/17 08:25 Troponin T < 0.010 ng/mL (0.00-0.029) 07/26/17 14:04 NT-Pro-B Natriuret Pep 18.93 pg/mL (0-900) 07/26/17 08:25 Total Protein 7.1 g/dL (6.3-8.2) 07/27/17 13:02 Albumin 4.0 g/dL (3.9-5) 07/27/17 13:02 Albumin/Globulin Ratio 1.3 % 07/27/17 13:02 TSH 1.950 mlU/mL (0.270-4.200) 07/26/17 08:25 Urine Color Straw (Yellow) 07/26/17 09:37 Urine Turbidity Clear (Clear) 07/26/17 09:37 Urine pH 7.0 (5.0-7.0) 07/26/17 09:37 Ur Specific [place] 1.005 (1.003-1.030) 07/26/17 09:37 Urine Protein <15 mg/dl mg/dL (Negative) 07/26/17 09:37 Urine Glucose (UA) Neg mg/dL (Negative) 07/26/17 09:37 Urine Ketones Neg mg/dL (Negative) 07/26/17 09:37 Urine Blood Neg (Negative) 07/26/17 09:37 Urine Nitrite Neg (Negative) 07/26/17 09:37 Urine Bilirubin Neg (Negative) 07/26/17 09:37 Urine Urobilinogen < 2.0 mg/dL (<2.0) 07/26/17 09:37 Ur Leukocyte Esterase Neg (Negative) 07/26/17 09:37 Urine WBC (Auto) < 1.0 /HPF (0.0-6.0) 07/26/17 09:37 Urine RBC (Auto) < 1.0 /HPF (0.0-6.0) 07/26/17 09:37 U Epithel Cells (Auto) < 1.0 /HPF (0-13.0) 07/26/17 09:37 Urine Opiates Screen Presumptive negative 07/26/17 09:37 Urine Methadone Screen Presumptive negative 07/26/17 09:37 Ur Barbiturates Screen Presumptive negative 07/26/17 09:37 Ur Phencyclidine Scrn Presumptive negative 07/26/17 09:37 Ur Amphetamines Screen Presumptive negative 07/26/17 09:37 U Benzodiazepines Scrn Presumptive negative 07/26/17 09:37 Urine Cocaine Screen Presumptive negative 07/26/17 09:37 U Marijuana (THC) Screen Presumptive negative 07/26/17 09:37 Drugs of Abuse Note Disclamer 07/26/17 09:37 Plasma/Serum Alcohol < 0.01 % (0-0.07) 07/26/17 08:25 Hepatitis A IgM Ab Reactive (NonReactive) A 07/27/17 13:02 Hep Bs Antigen Non-reactive (Negative) 07/27/17 13:02 Hep B Core IgM Ab Non-reactive (NonReactive) 07/27/17 13:02 Hepatitis C Antibody Non-reactive (NonReactive) 07/27/17 13:02 Blood Type O POSITIVE 07/26/17 08:25 Antibody Screen Negative 07/26/17 08:25
[2017-07-28] MEDS: BROVANA NEBU IH SCH ×2 (16:05→22:47)
[2017-07-28] MEDS: PULMICORT IH SCH ×2 (16:05→22:47)
[2017-07-28] MEDS: MINIPRESS PO SCH (21:19)
[2017-07-29] MEDS: OxyCONTIN PO SCH ×4 (04:09→22:30)
[2017-07-29] MEDS: BROVANA NEBU IH SCH ×2 (09:23→22:23)
[2017-07-29] MEDS: PULMICORT IH SCH ×2 (09:23→22:23)
[2017-07-29] MEDS: NEURONTIN PO SCH ×3 (10:07→20:45)
[2017-07-29] MEDS: COREG PO SCH ×3 (10:07→22:29)
[2017-07-29] MEDS: COZAAR PO SCH (10:08)
[2017-07-29] MEDS: NORVASC PO SCH (10:09)
[2017-07-29] MEDS: TOPAMAX PO SCH ×3 (10:10→22:30)
[2017-07-29] MEDS: LASIX PO SCH (10:17)
[2017-07-29] MEDS: HALFPRIN EC PO SCH (10:17)
[2017-07-29] MEDS: CLARITIN PO SCH (10:17)
[2017-07-29] MEDS: PROTONIX PO SCH (10:17)
[2017-07-29] MEDS: ZOLOFT PO SCH (10:17)
[2017-07-29] MEDS: LEXAPRO PO SCH (10:18)
[2017-07-29] MEDS: K-DUR PO SCH (10:18)
[2017-07-29] MEDS: NITRO DUR TD SCH (10:18)
[2017-07-29] MEDS: SODIUM CHLORIDE FLUSH SYRINGE 10 ML IV SCH ×2 (10:21→22:00)
[2017-07-29] MEDS: XANAX PO SCH ×3 (10:22→22:31)
--- NOTE | 2017-07-29 11:54 | Progress Note ---
Assessment and Plan Assessment and plan: Acute on chronic respiratory failure Resolved. Obesity hypoventilation syndrome Supplemental oxygen and CPAP at night Encephalopathy I suspect etiology may be secondary to polypharmacy. We will decrease and/or DC OxyContin and Xanax. CT Head negative, continue neuro checks, seizure precautions. Patient with elevated ammonia level but denies any history of liver disease and abdominal ultrasound negative. LFTs within normal limits but hepatitis panel revealed acute hepatitis A infection. Self-limiting and continue supportive care. Continue lactulose as needed. Follow-up ammonia level. Hepatitis A infection. Self-limiting/Supportive care. GI follow-up as an outpatient Patient is to only use one toilet/bathroom for the next 2 weeks. Mild CHF (congestive heart failure) Patient with likely mild decompensation as demonstrated by chest x-ray. Resolved. Echocardiogram normal. COPD (chronic obstructive pulmonary disease) exacerbation Resolving. Continue supplemental oxygen, nebulizer therapy, supportive care, ARF (acute renal failure) Resolved Peptic ulcer disease. Patient on PPI daily. Rectal carcinoid. Oncology follow-up as an outpatient Bipolar disorder. Continue home medications. DVT prophylaxis History Interval history: Alert and oriented 3. Hospitalist Physical - Constitutional Vitals: Temp Pulse Resp BP Pulse Ox 98.2 F 96 H 18 93/53 99 07/29/17 08:47 07/29/17 10:00 07/29/17 10:00 07/29/17 10:09 07/29/17 10:00 General appearance: Present: no acute distress, obese - EENT Eyes: Present: PERRL, EOM intact ENT: hearing intact, clear oral mucosa, dentition normal - Neck Neck: Present: supple, normal ROM - Respiratory Respiratory effort: normal Respiratory: bilateral: CTA - Cardiovascular Rhythm: regular Heart Sounds: Present: S1 & S2. Absent: gallop, rub - Extremities Extremities: no ischemia, No edema, Full ROM - Abdominal General gastrointestinal: soft, non-tender, non-distended, normal bowel sounds - Integumentary Integumentary: Present: clear, warm, dry - Neurologic Neurologic: CNII-XII intact, moves all extremities Results - Labs CBC & Chem 7: 07/28/17 07:07 07/28/17 07:07 Labs: Laboratory Last Values WBC 7.2 K/mm3 (4.5-11.0) 07/28/17 07:07 RBC 5.41 M/mm3 (3.65-5.03) H 07/28/17 07:07 Hgb 13.0 gm/dl (10.1-14.3) 07/28/17 07:07 Hct 41.4 % (30.3-42.9) 07/28/17 07:07 MCV 77 fl (79-97) L 07/28/17 07:07 MCH 24 pg (28-32) L 07/28/17 07:07 MCHC 31 % (30-34) 07/28/17 07:07 RDW 15.1 % (13.2-15.2) 07/28/17 07:07 Plt Count 201 K/mm3 (140-440) 07/28/17 07:07 Lymph % (Auto) 21.9 % (13.4-35.0) 07/28/17 07:07 [place] % (Auto) 9.7 % (0.0-7.3) H 07/28/17 07:07 Eos % (Auto) 6.2 % (0.0-4.3) H 07/28/17 07:07 Baso % (Auto) 0.8 % (0.0-1.8) 07/28/17 07:07 Lymph # 1.6 K/mm3 (1.2-5.4) 07/28/17 07:07 [place] # 0.7 K/mm3 (0.0-0.8) 07/28/17 07:07 Eos # 0.4 K/mm3 (0.0-0.4) 07/28/17 07:07 Baso # 0.1 K/mm3 (0.0-0.1) 07/28/17 07:07 Seg Neutrophils % 61.4 % (40.0-70.0) 07/28/17 07:07 Seg Neutrophils # 4.4 K/mm3 (1.8-7.7) 07/28/17 07:07 PT 13.0 Sec. (12.2-14.9) 07/26/17 08:25 INR 0.94 (0.87-1.13) 07/26/17 08:25 APTT 33.6 Sec. (24.2-36.6) 07/26/17 08:25 Thrombin Time 16.5 Sec. (15.1-19.6) 07/26/17 08:25 D-Dimer 197.93 ng/mlDDU (0-234) 07/26/17 08:25 POC ABG pH 7.248 (7.35-7.45) L 07/26/17 09:04 POC ABG pCO2 53.9 (35-45) H 07/26/17 09:04 POC ABG pO2 96 (80-105) 07/26/17 09:04 POC ABG HCO3 23.5 07/26/17 09:04 POC ABG Total CO2 25 07/26/17 09:04 POC ABG O2 Sat 96 07/26/17 09:04 POC ABG Base Excess -4 07/26/17 09:04 FiO2 28 % 07/26/17 09:04 Sodium 138 mmol/L (137-145) 07/28/17 07:07 Potassium 4.3 mmol/L (3.6-5.0) 07/28/17 07:07 Chloride 100.6 mmol/L (98-107) 07/28/17 07:07 Carbon Dioxide 28 mmol/L (22-30) 07/28/17 07:07 Anion Gap 14 mmol/L 07/28/17 07:07 BUN 10 mg/dL (7-17) 07/28/17 07:07 Creatinine 0.8 mg/dL (0.7-1.2) 07/28/17 07:07 Estimated GFR > 60 ml/min 07/28/17 07:07 BUN/Creatinine Ratio 13 % 07/28/17 07:07 Glucose 119 mg/dL (65-100) H 07/28/17 07:07 POC Glucose 135 (70-105) H 07/29/17 06:45 Calcium 9.2 mg/dL (8.4-10.2) 07/28/17 07:07 Total Bilirubin 0.30 mg/dL (0.1-1.2) 07/27/17 13:02 Direct Bilirubin < 0.2 mg/dL (0-0.2) 07/27/17 13:02 Indirect Bilirubin 0.1 mg/dL 07/27/17 13:02 AST 21 units/L (5-40) 07/27/17 13:02 ALT 29 units/L (7-56) 07/27/17 13:02 Alkaline Phosphatase 55 units/L (35-129) 07/27/17 13:02 Ammonia 106.0 umol/L (25-60) H 07/28/17 07:07 Total Creatine Kinase 45 units/L (30-135) 07/26/17 08:25 CK-MB (CK-2) 1.1 ng/mL (0.0-4.0) 07/26/17 08:25 CK-MB (CK-2) Rel Index 2.4 (0-4) 07/26/17 08:25 Troponin T < 0.010 ng/mL (0.00-0.029) 07/26/17 14:04 NT-Pro-B Natriuret Pep 18.93 pg/mL (0-900) 07/26/17 08:25 Total Protein 7.1 g/dL (6.3-8.2) 07/27/17 13:02 Albumin 4.0 g/dL (3.9-5) 07/27/17 13:02 Albumin/Globulin Ratio 1.3 % 07/27/17 13:02 TSH 1.950 mlU/mL (0.270-4.200) 07/26/17 08:25 Urine Color Straw (Yellow) 07/26/17 09:37 Urine Turbidity Clear (Clear) 07/26/17 09:37 Urine pH 7.0 (5.0-7.0) 07/26/17 09:37 Ur Specific [place] 1.005 (1.003-1.030) 07/26/17 09:37 Urine Protein <15 mg/dl mg/dL (Negative) 07/26/17 09:37 Urine Glucose (UA) Neg mg/dL (Negative) 07/26/17 09:37 Urine Ketones Neg mg/dL (Negative) 07/26/17 09:37 Urine Blood Neg (Negative) 07/26/17 09:37 Urine Nitrite Neg (Negative) 07/26/17 09:37 Urine Bilirubin Neg (Negative) 07/26/17 09:37 Urine Urobilinogen < 2.0 mg/dL (<2.0) 07/26/17 09:37 Ur Leukocyte Esterase Neg (Negative) 07/26/17 09:37 Urine WBC (Auto) < 1.0 /HPF (0.0-6.0) 03/23/18 09:37 Urine RBC (Auto) < 1.0 /HPF (0.0-6.0) 07/26/17 09:37 U Epithel Cells (Auto) < 1.0 /HPF (0-13.0) 07/26/17 09:37 Urine Opiates Screen Presumptive negative 07/26/17 09:37 Urine Methadone Screen Presumptive negative 07/26/17 09:37 Ur Barbiturates Screen Presumptive negative 07/26/17 09:37 Ur Phencyclidine Scrn Presumptive negative 07/26/17 09:37 Ur Amphetamines Screen Presumptive negative 07/26/17 09:37 U Benzodiazepines Scrn Presumptive negative 07/26/17 09:37 Urine Cocaine Screen Presumptive negative 07/26/17 09:37 U Marijuana (THC) Screen Presumptive negative 07/26/17 09:37 Drugs of Abuse Note Disclamer 07/26/17 09:37 Plasma/Serum Alcohol < 0.01 % (0-0.07) 07/26/17 08:25 Hepatitis A IgM Ab Reactive (NonReactive) A 07/27/17 13:02 Hep Bs Antigen Non-reactive (Negative) 07/27/17 13:02 Hep B Core IgM Ab Non-reactive (NonReactive) 07/27/17 13:02 Hepatitis C Antibody Non-reactive (NonReactive) 07/27/17 13:02 Blood Type O POSITIVE 07/26/17 08:25 Antibody Screen Negative 07/26/17 08:25
[2017-07-29] MEDS: MINIPRESS PO SCH ×2 (20:44→22:29)
--- NOTE | 2017-07-30 09:03 | Discharge Summary ---
Providers - Providers Date of Admission: 07/26/17 15:19 Attending physician: CORAZON HANNA 07/26/17 20:37 Speech Therapy Evaluation and Treat [CONS] Routine Reason For Exam: difficulty swallowing 07/29/17 08:28 Physical Therapy Evaluation and Treat [CONS] Routine Comment: Reason For Exam: deconditioning Primary care physician: MANAGER C[facility] Hospitalization Condition: Serious Disposition: DC-30 STILL A PATIENT Exam - Constitutional Vitals: Temp Pulse Resp BP Pulse Ox 97.0 F L 95 H 22 107/54 92 07/30/17 04:44 07/30/17 04:44 07/30/17 04:44 07/30/17 04:44 07/30/17 04:44 Plan Activity: fall precautions Weight Bearing Status: Weight Bear as Tolerated Diet: low fat, low cholesterol Follow up with: PRIMARY CARE, [Primary Care Provider] - 3-5 Days Forms: Work/School Excuse Out Patient
[2017-07-30] MEDS: BROVANA NEBU IH SCH (09:56)
[2017-07-30] MEDS: PULMICORT IH SCH (09:56)
[2017-07-30] MEDS: XANAX PO SCH (10:44)
[2017-07-30] MEDS: HALFPRIN EC PO SCH (10:44)
[2017-07-30] MEDS: PROTONIX PO SCH (10:44)
[2017-07-30] MEDS: LEXAPRO PO SCH (10:45)
[2017-07-30] MEDS: CLARITIN PO SCH (10:45)
[2017-07-30] MEDS: TOPAMAX PO SCH (10:46)
[2017-07-30] MEDS: NEURONTIN PO SCH (10:49)
[2017-07-30] MEDS: COZAAR PO SCH (10:50)
[2017-07-30] MEDS: COREG PO SCH (10:50)
[2017-07-30] MEDS: OxyCONTIN PO SCH (10:51)
[2017-07-30] MEDS: LASIX PO SCH (10:51)
[2017-07-30] MEDS: NORVASC PO SCH (10:51)
[2017-07-30 10:52] VITALS: BP 93/55
== END 2017-07-30 17:15 | disposition home health service (06) | DRG 682 ==
LOC: ED 08:05 → 4A 15:19
PROVIDERS: ADMIT Internal Medicine; ATTEND Hospitalist
PROC: 4A033R1 Measurement of Arterial Saturation, Peripheral, Percutaneous Approach (ICD-10-PCS; principal; 2017-07-26)
PROC: 5A09457 Assistance with Respiratory Ventilation, 24-96 Consecutive Hours, Continuous Positive Airway Pressure (ICD-10-PCS; 2017-07-27)
DX: N17.9 Acute kidney failure, unspecified (principal); J96.20 Acute and chronic respiratory failure, unspecified whether with hypoxia or hypercapnia; G92 Toxic encephalopathy; I50.9 Heart failure, unspecified; J44.1 Chronic obstructive pulmonary disease with (acute) exacerbation; E66.2 Morbid (severe) obesity with alveolar hypoventilation; K27.9 Peptic ulcer, site unspecified, unspecified as acute or chronic, without hemorrhage or perforation; E11.9 Type 2 diabetes mellitus without complications; I25.10 Atherosclerotic heart disease of native coronary artery without angina pectoris; I11.0 Hypertensive heart disease with heart failure; K21.9 Gastro-esophageal reflux disease without esophagitis; M19.90 Unspecified osteoarthritis, unspecified site; E72.20 Disorder of urea cycle metabolism, unspecified; F31.9 Bipolar disorder, unspecified; B15.9 Hepatitis A without hepatic coma; Z96.659 Presence of unspecified artificial knee joint; Z95.5 Presence of coronary angioplasty implant and graft; I25.2 Old myocardial infarction; Z90.710 Acquired absence of both cervix and uterus; Z79.899 Other long term (current) drug therapy; Z68.39 Body mass index [BMI] 39.0-39.9, adult; Z82.49 Family history of ischemic heart disease and other diseases of the circulatory system; Z88.2 Allergy status to sulfonamides; Z88.1 Allergy status to other antibiotic agents; Z91.013 Allergy to seafood; T40.2X5A Adverse effect of other opioids, initial encounter; Y92.9 Unspecified place or not applicable
CPT/HCPCS: 36415; 70450; 71045; 76700; 80048; 80053; 80074; 80307; 80320; 81001; 82140; 82550; 82553; 82803; 82962; 83880; 84443; 84484; 85025; 85379; 85610; 85670; 85730; 86850; 86900; 86901; 93005; 93010; 93306; 94640; 94660; 94760; 96360; G0480; J7040

== ENCOUNTER 2017-10-17 11:59 | Observation (INO) | payer MEDICAID ==
--- NOTE | 2017-10-17 13:21 | Emergency Department Report ---
[facility] Doc - Documentation Documentation: 52-year-old female with multiple medical problems presents to the hospital with multiple complaints Complaint #1: Chest pain shortness of breath Patient saw her pipe fitter Dr. Iglesias and was told that previous imaging results indicated "fluid in her lung". She was advised to come to the hospital but came in today due to increased dyspnea on exertion and chest pain. Patient has a Nitropaste to the chest wall. Patient was sent to Dr. Iglesias after she had a heart rate of 130s at her maintenance painter. They did not perform the pain injections because of her heart rate and sent her to her pipe fitter. In shanti pipe fitter's office heart was normal but she was told about the fluid in her lungs. Patient recently returned from a trip to [place] (travel there by train and back by car). Returned to 7 days ago. Orders ekg, labs, cxr Complaint #2: rectal bleeding Patient states during a recent admission to the hospital she had a polypectomy and surgery on her hemorrhoids. She has continued rectal bleeding and feels a bump in her anal area. Using hemorrhoid past without relief. H/h, coags pending Complaint # 3: right foot pain Patient fell 4 days ago and has been having pain to her medial foot and great toe since. Right foot x-ray ordered Given patient's complicated history and history of present illness she will be sent to the acute side for further evaluation and treatment
--- NOTE | 2017-10-17 14:06 | XRay Report ---
ROUTINE CHEST, TWO VIEWS: SOB. PA and lateral views demonstrate the heart and mediastinal contour to be of normal size and shape. The lungs are clear and fully expanded and the soft tissues and bony structures are normal. IMPRESSION: Normal study.
[2017-10-17 14:23] LABS: INR 0.92 (0.87-1.13)
[2017-10-17 14:24] LABS: Basophils # (Auto) 0.1 K/mm3 (0.0-0.1); Basophils % (Auto) 1.1 % (0.0-1.8); Eosinophils # (Auto) 0.5 K/mm3 (0.0-0.4); Eosinophils % (Auto) 8.2 % (0.0-4.3); Hematocrit 45.6 % (30.3-42.9); Hemoglobin 14.2 gm/dl (10.1-14.3); Lymphocytes # (Auto) 2.2 K/mm3 (1.2-5.4); Lymphocytes % (Auto) 34.9 % (13.4-35.0); Mean Corpuscular HGB Conc 31 % (30-34); Mean Corpuscular Volume 78 fl (79-97); Monocytes # (Auto) 0.6 K/mm3 (0.0-0.8); Monocytes % (Auto) 9.4 % (0.0-7.3); Partial Thromboplastin Time 28.5 Sec. (24.2-36.6); Platelet Count 239 K/mm3 (140-440); Red Blood Count 5.85 M/mm3 (3.65-5.03); Red Cell Distribution Width 16.4 % (13.2-15.2)
[2017-10-17 14:28] LABS: Mean Corpuscular Hemoglobin 24 pg (28-32)
[2017-10-17 14:39] LABS: Alanine Aminotransferase 40 units/L (7-56); Albumin 4.3 g/dL (3.9-5); BUN/Creatinine Ratio 13; Blood Urea Nitrogen 10 mg/dL (7-17); Creatine Kinase MB 1.1 ng/mL (0.0-4.0); Hemolysis Index 5
[2017-10-17] MEDS ORDERED: MORPHINE IM ONE (16:20)
--- NOTE | 2017-10-17 16:43 | Emergency Department Report ---
ED Chest Pain HPI - General Chief Complaint: Dyspnea/Respdistress Stated Complaint: RECTAL BLEEDING Time Seen by Provider: 10/17/17 12:43 Source: patient Mode of arrival: Ambulatory Limitations: No Limitations - History of Present Illness Initial Comments: 52-year-old [place] female presents to the emergency department with multiple complaints. First patient has midsternal to left-sided chest pain has been going on since yesterday. She put on a nitroglycerin patch that she is still wearing but has not gotten any relief. The patient follows with Dr. Smith and saw her yesterday and apparently there was some issue where she was told that she has some fluid on the lungs and she was told to go to the emergency department for further evaluation but she did not go until today. Secondly, the patient's been having some rectal bleeding, that worsens with bowel movements. She has a history of a rectal hemorrhage from April of this year that was an internal hemorrhoid that was banded by gastroenterology while in the hospital. The patient says that while she was in here she also was found out to have hepatitis A. Patient complains of some shortness of breath and doesn't history of CHF as well as COPD on 2 L oxygen dependent at home. She also has history of asthma, diabetes, peptic ulcer disease, coronary artery disease with NE, hypertension, sleep apnea on a CPAP machine at night, PTSD, schizophrenia and bipolar disorder. Her operation supervisor is Dr. Sierra. Patient says that she alledgedly had a stress test done in the event the heart office in August. The patient also has pain to the right great toe that occurred after she hit it a few days ago and she has concern that she may have broken it. Patient takes oxycodone that she gets from her pain clinic but says that it is not helping any of her discomfort including her chronic back pain. Severity scale (0 -10): 10 - Related Data Home Medications Medication Instructions Recorded Confirmed Last Taken Carvedilol [Coreg] 6.25 tab PO BID 06/15/13 10/17/17 10/18/15 07:00 Albuterol Sulfate [Proventil HFA] 2 puff IH Q4-6H PRN 07/03/13 10/17/17 11:50 Potassium Chloride [K-Dur] 1 tab PO DAILY 07/03/13 10/17/1710/17/16 07:00 Fluticasone [Flonase] 2 spray NS QDAY 10/18/15 10/17/17 10/18/15 07:00 Loratadine [Claritin] 10 mg PO DAILY 10/18/15 10/17/17 10/17/15 Sertraline [Zoloft] 100 mg PO DAILY 10/18/15 10/17/17 10/18/15 07:00 Tizanidine HCl [Zanaflex] 4 mg PO BID 04/16/17 10/17/17 Unknown oxyCODONE ER [OxyCONTIN ER TAB] 20 mg PO TID 04/16/17 10/17/17 Unknown ALPRAZolam [Xanax TAB] 2 mg PO BID 07/26/17 10/17/17 Unknown Aspirin [Adult Low Dose Aspirin EC] 81 mg PO DAILY 07/26/17 10/17/17 Unknown Escitalopram Oxalate [Lexapro] 20 mg PO DAILY 07/26/17 10/17/17 Unknown Fluticasone/Salmeterol [Advair 1 each IH BID 07/26/17 10/17/17 Unknown 250-50 Diskus] Nitroglycerin [Nitroglycerin Patch] 1 each TD DAILY 07/26/17 10/17/17 Unknown Omeprazole Magnesium [PriLOSEC Otc] 20 mg PO DAILY 07/26/17 10/17/17 Unknown Topiramate [Topamax] 100 mg PO BID 07/26/17 10/17/17 Unknown Furosemide [Lasix TAB] 40 mg PO TID 10/17/17 10/17/17 Unknown Gabapentin [Neurontin] 300 mg PO QID 10/17/17 10/17/17 Unknown [place] Carbonate [Eskalith] 300 mg PO DAILY 10/17/17 10/17/17 Unknown Loratadine [Claritin] 10 mg PO DAILY 10/17/17 10/17/17 Unknown OXcarbazepine [Trileptal] 30 mg PO BID 10/17/17 10/17/17 Unknown Prazosin HCl 2 mg PO DAILY 10/17/17 10/17/17 Unknown Quetiapine Fumarate [QUEtiapine 400 mg PO DAILY 10/17/17 10/17/17 Unknown Fumarate] amLODIPine [Norvasc] 10 mg PO DAILY 10/17/17 10/17/17 Unknown Allergies Allergy/AdvReac Type Severity Reaction Status Date / Time azithromycin Allergy Shortness Verified 08/19/16 12:34 of Breath meloxicam Allergy Rash Verified 08/19/16 12:34 cephalexin monohydrate AdvReac Itching Verified 08/19/16 12:34 [From Keflex] pregabalin [From Lyrica] AdvReac Unknown Verified 08/19/16 12:34 shellfish derived AdvReac GI UPSET Verified 08/19/16 12:34 Sulfa (Sulfonamide AdvReac Itching Verified 08/19/16 12:34 Antibiotics) tomato [Tomato] AdvReac Unknown Verified 08/19/16 12:34 Heart Score - HEART Score History: Moderately suspicious EKG: Normal Age: 45-65 Risk factors: > 3 risk factors or hx of atherosclerotic disease Troponin: < normal limit HEART Score: 4 ED Review of Systems ROS: Stated complaint: RECTAL BLEEDING Other details as noted in HPI Comment: All other systems reviewed and negative Constitutional: denies: chills, fever Eyes: denies: eye pain, eye discharge, vision change ENT: denies: ear pain, throat pain Respiratory: shortness of breath. denies: cough Cardiovascular: chest pain Gastrointestinal: denies: abdominal pain, nausea, diarrhea Genitourinary: denies: urgency, dysuria, discharge Musculoskeletal: back pain (review), arthralgia Skin: denies: rash, lesions Neurological: denies: headache, weakness, paresthesias ED Past Medical Hx - Past Medical History Previous Medical History?: Yes Hx Hypertension: Yes (1992) Hx Heart Attack/AMI: Yes () Hx Congestive Heart Failure: Yes Hx Diabetes: Yes Hx GERD: Yes (peptic ulcer) Hx Liver Disease: Yes (hepatitis a) Hx Renal Disease: No Hx Arthritis: Yes Hx Psychiatric Treatment: Yes (PTSD, Schizophrenia, Bipolar) Hx Asthma: Yes Hx COPD: Yes Hx HIV: No Additional medical history: Sleep apnea using CPAP machine at night, Home 02 concentrated oxygen 2 liters, Spinal problems buldging disc, and hip problems, gets injections at [facility] with Dr. Hernández, wants to report her psychiatrist is Dr. Mynor Urrutia. Hemorrhoids - Surgical History Past Surgical History?: Yes Hx Coronary Stent: Yes (2002 (pt states she has 2 stents)) Additional Surgical History: Hysterectomy. left knee surgery - Social History Smoking Status: Never Smoker Substance Use Type: Alcohol, Prescribed - Medications Home Medications: Home Medications Medication Instructions Recorded Confirmed Last Taken Type Carvedilol [Coreg] 6.25 tab PO BID 06/15/13 10/17/17 10/18/15 07:00 History Albuterol Sulfate [Proventil HFA] 2 puff IH Q4-6H PRN 07/03/13 10/17/17 11:50 History Potassium Chloride [K-Dur] 1 tab PO DAILY 07/03/13 10/17/17 10/18/15 07:00 History Fluticasone [Flonase] 2 spray NS QDAY 10/18/15 10/17/17 10/18/15 07:00 History Loratadine [Claritin] 10 mg PO DAILY 10/18/15 10/17/17 10/17/15 History Sertraline [Zoloft] 100 mg PO DAILY 10/18/15 10/17/17 10/18/15 07:00 History Tizanidine HCl [Zanaflex] 4 mg PO BID 04/16/17 10/17/17 Unknown History oxyCODONE ER [OxyCONTIN ER TAB] 20 mg PO TID 04/16/17 10/17/17 Unknown History ALPRAZolam [Xanax TAB] 2 mg PO BID 07/26/17 10/17/17 Unknown History Aspirin [Adult Low Dose Aspirin EC] 81 mg PO DAILY 07/26/17 10/17/17 Unknown History Escitalopram Oxalate [Lexapro] 20 mg PO DAILY 07/26/17 10/17/17 Unknown History Fluticasone/Salmeterol [Advair 1 each IH BID 07/26/17 10/17/17 Unknown History 250-50 Diskus] Nitroglycerin [Nitroglycerin Patch] 1 each TD DAILY 07/26/17 10/17/17 Unknown History Omeprazole Magnesium [PriLOSEC Otc] 20 mg PO DAILY 07/26/17 10/17/17 Unknown History Topiramate [Topamax] 100 mg PO BID 07/26/17 10/17/17 Unknown History Furosemide [Lasix TAB] 40 mg PO TID 10/17/17 10/17/17 Unknown History Gabapentin [Neurontin] 300 mg PO QID 10/17/17 10/17/17 Unknown History [place] Carbonate [Eskalith] 300 mg PO DAILY 10/17/17 10/17/17 Unknown History Loratadine [Claritin] 10 mg PO DAILY 10/17/17 10/17/17 Unknown History OXcarbazepine [Trileptal] 30 mg PO BID 10/17/17 10/17/17 Unknown History Prazosin HCl 2 mg PO DAILY 10/17/17 10/17/17 Unknown History Quetiapine Fumarate [QUEtiapine 400 mg PO DAILY 10/17/17 10/17/17 Unknown History Fumarate] amLODIPine [Norvasc] 10 mg PO DAILY 10/17/17 10/17/17 Unknown History ED Physical Exam - General Limitations: No Limitations - Other Other exam information: GENERAL: The patient is well-developed well-nourished. HENT: Normocephalic. Atraumatic. Patient has moist mucous membranes. EYES: Extraocular motions are intact. Pupils equal reactive to light bilaterally. NECK: Supple. Trachea is midline. CHEST/LUNGS: Clear to auscultation. There is no respiratory distress noted. HEART/CARDIOVASCULAR: Regular. There is no tachycardia. There is no murmur. ABDOMEN: Abdomen is soft, nontender. Patient has normal bowel sounds. There is no abdominal distention. SKIN: Skin is warm and dry. NEURO: The patient is awake, alert, and oriented. The patient is cooperative. The patient has no focal neurologic deficits. The patient has normal speech. MUSCULOSKELETAL: There is some tenderness palpation to the right great toe but no obvious deformity. The rest of the extremities do not show any tenderness to palpation or deformity. RECTAL: There is a moderate-sized external hemorrhoid that does not appear thrombosed and no current bleeding that is at the 5 o'clock position. Stool is positive for guaiac testing. ED Course Vital Signs 10/17/17 10/17/17 10/17/17 12:06 14:04 19:05 Temperature 98.1 F 98.2 F Pulse Rate 86 86 93 H Respiratory 20 16 24 Rate Blood Pressure 124/85 Blood Pressure 139/95 136/84 [Left] O2 Sat by Pulse 98 98 97 Oximetry 10/17/17 10/17/17 10/17/17 19:51 20:00 21:00 Temperature Pulse Rate 87 Respiratory 35 H Rate Blood Pressure 124/76 123/75 Blood Pressure [Left] O2 Sat by Pulse 97 92 98 Oximetry FRANCIS score - Francis Score Age > 65: (0) No Aspirin use within the Past 7 Days: (0) No 3 or more CAD Risk Factors: (1) Yes 2 or more Angina events in past 24 hrs: (1) Yes Known CAD with more than 50% Stenosis: (0) No Elevated Cardiac Markers: (0) No ST Deviation Greater than 0.5mm: (0) No FRANCIS Score: 2 ED Medical Decision Making - Lab Data Result diagrams: 10/17/17 13:55 10/17/17 13:55 - EKG Data -: EKG Interpreted by Me EKG shows normal: sinus rhythm, axis, intervals (prolonged [place] interval), QRS complexes, ST-T waves Rate: normal - EKG Data When compared to previous EKG there are: previous EKG unavailable Interpretation: normal EKG (with slightly prolonged [place] interval) - Radiology Data Radiology results: image reviewed interpreted by me: X-ray of the right foot does not show any fracture, this location or any acute process. Chest x-ray does not show any acute process. There are no pleural effusions, obvious pneumonia and there is no pneumothorax. - Medical Decision Making Patient comes in with multiple complaints. Regarding her chest pain, so far she has had negative troponins 2 and a negative d-dimer. While I see the echocardiogram done, she allegedly had a stress test done immediately at the heart office was negative in August. However the patient continues to have chest pain despite having a nitroglycerin patch and receiving some pain medication here. Patient complains of rectal bleeding and has a history of a banded internal hemorrhoid. She now has an external hemorrhoid and is guaiac positive on stool testing. Her complaint of right great toe pain may just be a sprain or strain as the x-ray does not show any fracture or dislocation. Vital signs stable throughout her ED course. The patient will be admitted to the hospital for further evaluation and treatment and was accepted for admission by the hospitalists service. - Differential Diagnosis NE, toe fracture, sprain, strain, COPD, PE Critical Care Time: No Critical care attestation.: If time is entered above; I have spent that time in minutes in the direct care of this critically ill patient, excluding procedure time. ED Disposition Clinical Impression: Rectal bleeding COPD (chronic obstructive pulmonary disease) Qualifiers: COPD type: unspecified COPD Qualified Code(s): J44.9 - Chronic obstructive pulmonary disease, unspecified Chest pain Qualifiers: Chest pain type: unspecified Qualified Code(s): R07.9 - Chest pain, unspecified Hemorrhoid Qualifiers: Hemorrhoid type: perianal venous thrombosis Qualified Code(s): K64.5 - Perianal venous thrombosis Disposition: -09 OP ADMIT IP TO THIS HOSP Is pt being admited?: Yes Condition: Stable Time of Disposition: 19:32
[2017-10-17] MEDS ORDERED: DILAUDID IV ONE (18:32)
[2017-10-17] MEDS ORDERED: BENADRYL IV ONE (20:23)
--- NOTE | 2017-10-17 20:53 | XRay Report ---
FINAL REPORT EXAM: XR FOOT 3+V RT HISTORY: medial right foot pain after fall TECHNIQUE: 3 four views right foot PRIORS: None. FINDINGS: No fracture or dislocation identified. Joint spaces are within normal limits. No radiopaque foreign body seen. No soft tissue abnormality identified. IMPRESSION: Negative foot series
[2017-10-18] MEDS: MORPHINE IV PRN (01:15)
[2017-10-18] MEDS ORDERED: PROAIR IH PRN (04:44)
[2017-10-18] MEDS ORDERED: ALPRAZOLAM 1 MG PO SCH (04:45)
[2017-10-18] MEDS ORDERED: TYLENOL PO PRN (04:48)
[2017-10-18] MEDS ORDERED: ZOFRAN IV PRN (04:48)
[2017-10-18] MEDS ORDERED: SODIUM CHLORIDE FLUSH SYRINGE 10 ML IV PRN (04:48)
[2017-10-18] MEDS ORDERED: NACL 0.9% 1000 ML 1,000 ML IV SCH (05:00)
[2017-10-18] MEDS ORDERED: PROVENTIL IH PRN (05:00)
--- NOTE | 2017-10-18 05:03 | History and Physical Report ---
History of Present Illness Date of examination: 10/17/17 Date of admission: 10/17/17 19:33 Chief complaint: Chief complaint: Chest pain and GI bleed for 1 day History of present illness: History of Present Illness: 52-year-old female with history of hypertension peripheral neuropathy bipolar disorder and recent GI bleed about a month ago comes in for recurrence of lower GI bleed for 4 days which the patient attributes to hemorrhoids. Lower GI bleed today since morning. Patient also has chest pain intermittent in nature since morning. Patient was told that she has congestive heart failure by . Patient also has COPD and is on CPAP machine at home. No diaphoresis palpitations associated with chest pain. Patient had a stress test in August 2017 which was negative. Past Medical History Previous Medical History?: Yes Hx Hypertension: Yes (1992) Hx Heart Attack/AMI: Yes () Hx Congestive Heart Failure: Yes Hx Diabetes: Yes Hx GERD: Yes (peptic ulcer) Hx Liver Disease: Yes (hepatitis a) Hx Arthritis: Yes Hx Psychiatric Treatment: Yes (PTSD, Schizophrenia, Bipolar) Hx Asthma: Yes Hx COPD: Yes Additional medical history: Sleep apnea using CPAP machine at night, Home 02 concentrated oxygen 2 liters, Spinal problems buldging disc, and hip problems, gets injections at [facility] with Dr. Hernández, wants to report her psychiatrist is Dr. Mynor Urrutia. Hemorrhoids Surgical History Past Surgical History?: Yes Hx Coronary Stent: Yes (2002 (pt states she has 2 stents)) Additional Surgical History: Hysterectomy. left knee surgery Family history Htn Social History Smoking Status: Never Smoker Substance Use Type: Alcohol, Prescribed Medications Home Medications: Home Medications Medication Instructions Recorded Confirmed Last Taken Type Carvedilol [Coreg] 6.25 tab PO BID 06/15/13 10/17/17 10/18/15 07:00 History Albuterol Sulfate [Proventil HFA] 2 puff IH Q4-6H PRN 07/03/13 10/17/17 11:50 History Potassium Chloride [K-Dur] 1 tab PO DAILY 07/03/13 10/17/17 10/18/15 07:00 History Fluticasone [Flonase] 2 spray NS QDAY 10/18/15 10/17/17 10/18/15 07:00 History Loratadine [Claritin] 10 mg PO DAILY 10/18/15 10/17/17 10/17/15 History Sertraline [Zoloft] 100 mg PO DAILY 10/18/15 10/17/17 10/18/15 07:00 History Tizanidine HCl [Zanaflex] 4 mg PO BID 04/16/17 10/17/17 Unknown History oxyCODONE ER [OxyCONTIN ER TAB] 20 mg PO TID 04/16/17 10/17/17 Unknown History ALPRAZolam [Xanax TAB] 2 mg PO BID 07/26/17 10/17/17 Unknown History Aspirin [Adult Low Dose Aspirin EC] 81 mg PO DAILY 07/26/17 10/17/17 Unknown History Escitalopram Oxalate [Lexapro] 20 mg PO DAILY 07/26/17 10/17/17 Unknown History Fluticasone/Salmeterol [Advair 1 each IH BID 07/26/17 10/17/17 Unknown History 250-50 Diskus] Nitroglycerin [Nitroglycerin Patch] 1 each TD DAILY 07/26/17 10/17/17 Unknown History Omeprazole Magnesium [PriLOSEC Otc] 20 mg PO DAILY 07/26/17 10/17/17 Unknown History Topiramate [Topamax] 100 mg PO BID 07/26/17 10/17/17 Unknown History Furosemide [Lasix TAB] 40 mg PO TID 10/17/17 10/17/17 Unknown History Gabapentin [Neurontin] 300 mg PO QID 10/17/17 10/17/17 Unknown History [place] Carbonate [Eskalith] 300 mg PO DAILY 10/17/17 10/17/17 Unknown History Loratadine [Claritin] 10 mg PO DAILY 10/17/17 10/17/17 Unknown History OXcarbazepine [Trileptal] 30 mg PO BID 10/17/17 10/17/17 Unknown History Prazosin HCl 2 mg PO DAILY 10/17/17 10/17/17 Unknown History Quetiapine Fumarate [QUEtiapine 400 mg PO DAILY 10/17/17 10/17/17 Unknown History Fumarate] amLODIPine [Norvasc] 10 mg PO DAILY 10/17/17 10/17/17 Unknown History Review of Systems ROS: Stated complaint: RECTAL BLEEDING Other details as noted in HPI Comment: All other systems reviewed and negative Constitutional: denies: chills, fever Eyes: denies: eye pain, eye discharge, vision change ENT: denies: ear pain, throat pain Respiratory: shortness of breath. denies: cough Cardiovascular: chest pain Gastrointestinal: denies: abdominal pain, nausea, diarrhea Genitourinary: denies: urgency, dysuria, discharge Musculoskeletal: back pain (review), arthralgia Skin: denies: rash, lesions Neurological: denies: headache, weakness, paresthesias Medications and Allergies Allergies Allergy/AdvReac Type Severity Reaction Status Date / Time azithromycin Allergy Shortness Verified 08/19/16 12:34 of Breath meloxicam Allergy Rash Verified 08/19/16 12:34 cephalexin monohydrate AdvReac Itching Verified 08/19/16 12:34 [From Keflex] pregabalin [From Lyrica] AdvReac Unknown Verified 08/19/16 12:34 shellfish derived AdvReac GI UPSET Verified 08/19/16 12:34 Sulfa (Sulfonamide AdvReac Itching Verified 08/19/16 12:34 Antibiotics) tomato [Tomato] AdvReac Unknown Verified 08/19/16 12:34 Home Medications Medication Instructions Recorded Confirmed Last Taken Type Carvedilol [Coreg] 6.25 tab PO BID 06/15/13 10/17/17 10/18/15 07:00 History Albuterol Sulfate [Proventil HFA] 2 puff IH Q4-6H PRN 07/03/13 10/17/17 11:50 History Potassium Chloride [K-Dur] 1 tab PO DAILY 07/03/13 10/17/17 10/18/15 07:00 History Fluticasone [Flonase] 2 spray NS QDAY 10/18/15 10/17/17 10/18/15 07:00 History Loratadine [Claritin] 10 mg PO DAILY 10/18/15 10/17/17 10/17/15 History Sertraline [Zoloft] 100 mg PO DAILY 10/18/15 10/17/17 10/18/15 07:00 History Tizanidine HCl [Zanaflex] 4 mg PO BID 04/16/17 10/17/17 Unknown History oxyCODONE ER [OxyCONTIN ER TAB] 20 mg PO TID 04/16/17 10/17/17 Unknown History ALPRAZolam [Xanax TAB] 2 mg PO BID 07/26/17 10/17/17 Unknown History Aspirin [Adult Low Dose Aspirin EC] 81 mg PO DAILY 07/26/17 10/17/17 Unknown History Escitalopram Oxalate [Lexapro] 20 mg PO DAILY 07/26/17 10/17/17 Unknown History Fluticasone/Salmeterol [Advair 1 each IH BID 07/26/17 10/17/17 Unknown History 250-50 Diskus] Nitroglycerin [Nitroglycerin Patch] 1 each TD DAILY 07/26/17 10/17/17 Unknown History Omeprazole Magnesium [PriLOSEC Otc] 20 mg PO DAILY 07/26/17 10/17/17 Unknown History Topiramate [Topamax] 100 mg PO BID 07/26/17 10/17/17 Unknown History Furosemide [Lasix TAB] 40 mg PO TID 10/17/17 10/17/17 Unknown History Gabapentin [Neurontin] 300 mg PO QID 10/17/17 10/17/17 Unknown History [place] Carbonate [Eskalith] 300 mg PO DAILY 10/17/17 10/17/17 Unknown History Loratadine [Claritin] 10 mg PO DAILY 10/17/17 10/17/17 Unknown History OXcarbazepine [Trileptal] 30 mg PO BID 10/17/17 10/17/17 Unknown History Prazosin HCl 2 mg PO DAILY 10/17/17 10/17/17 Unknown History Quetiapine Fumarate [QUEtiapine 400 mg PO DAILY 10/17/17 10/17/17 Unknown History Fumarate] amLODIPine [Norvasc] 10 mg PO DAILY 10/17/17 10/17/17 Unknown History Active Meds: Active Medications Acetaminophen (Tylenol) 650 mg PO Q4H PRN PRN Reason: Pain MILD(1-3)/Fever >100.5/NICHOLAS Albuterol (Proair) 2 puff IH Q4-6H PRN PRN Reason: Shortness Of Breath Amlodipine Besylate (Norvasc) 10 mg PO DAILY [facility] Aspirin (Halfprin Ec) 81 mg PO DAILY [facility] Carvedilol (Coreg) 6.25 mg PO BID [facility] Fluticasone Propionate (Flonase) 100 mcg NS QDAY [facility] Furosemide (Lasix) 40 mg PO BID [facility] Gabapentin (Neurontin) 300 mg PO QID [facility] Sodium Chloride (Nacl 0.9% 1000 Ml) 1,000 mls @ 75 mls/hr IV DIRECT [facility] [place] Carbonate (Eskalith) 300 mg PO DAILY [facility] Loratadine (Claritin) 10 mg PO DAILY [facility] Miscellaneous Medication (Alprazolam [Xanax Tab]) 1 mg PO Q8H [facility] Miscellaneous Medication (Escitalopram Oxalate [Lexapro]) 20 mg PO DAILY [facility] Miscellaneous Medication (Fluticasone/Salmeterol) 1 each IH BID [facility] Miscellaneous Medication (Omeprazole Magnesium [Prilosec Otc]) 20 mg PO DAILY [facility] Miscellaneous Medication (Prazosin Hcl [Prazosin Hcl]) 2 mg PO DAILY [facility] Miscellaneous Medication (Quetiapine Fumarate [Quetiapine Fumarate]) 400 mg PO DAILY [facility] Miscellaneous Medication (Tizanidine Hcl [Zanaflex]) 4 mg PO BID [facility] Morphine Sulfate (Morphine) 2 mg IV Q3H PRN PRN Reason: Pain, Moderate (4-6) Nitroglycerin (Nitro Dur) mg TD DAILY [facility] Ondansetron HCl (Zofran) 4 mg IV Q8H PRN PRN Reason: Nausea And Vomiting Oxcarbazepine (Trileptal) 30 mg PO BID [facility] Oxycodone HCl (Oxycontin) 20 mg PO TID [facility] Potassium Chloride (K-Dur) 10 meq PO DAILY [facility] Sertraline HCl (Zoloft) 100 mg PO DAILY [facility] Sodium Chloride (Sodium Chloride Flush Syringe 10 Ml) 10 ml IV BID [facility] Sodium Chloride (Sodium Chloride Flush Syringe 10 Ml) 10 ml IV PRN PRN PRN Reason: LINE FLUSH Topiramate (Topamax) 100 mg PO BID [facility] Exam - Physical Exam Narrative exam: Lying in bed comfortably - Constitutional Vitals: Temp Pulse Resp BP Pulse Ox 98.3 F 80 18 120/83 96 10/17/17 22:00 10/17/17 22:00 10/17/17 22:00 10/17/17 22:00 10/17/17 22:00 General appearance: Present: no acute distress, well-nourished - EENT Eyes: Present: PERRL ENT: hearing intact, clear oral mucosa - Neck Neck: Present: supple, normal ROM - Respiratory Respiratory effort: normal Respiratory: bilateral: CTA - Cardiovascular Heart rate: 76 Rhythm: regular Heart Sounds: Present: S1 & S2. Absent: rub, click - Extremities Extremities: no ischemia, pulses intact, pulses symmetrical, No edema Peripheral Pulses: within normal limits - Abdominal General gastrointestinal: Present: soft, non-tender, non-distended, normal bowel sounds Female genitourinary: Present: normal - Rectal Rectal Exam: deferred - Integumentary Integumentary: Present: clear, warm, dry - Musculoskeletal Musculoskeletal: gait normal, strength equal bilaterally - Psychiatric Psychiatric: appropriate mood/affect, intact judgment & insight - Neurologic Neurologic: CNII-XII intact, moves all extremities - Allied Health Allied health notes reviewed: nursing, case management Results - Labs CBC & Chem 7: 10/17/17 13:55 10/17/17 13:55 Labs: Laboratory Last Values WBC 6.3 K/mm3 (4.5-11.0) 10/17/17 13:55 RBC 5.85 M/mm3 (3.65-5.03) H 10/17/17 13:55 Hgb 14.2 gm/dl (10.1-14.3) 10/17/17 13:55 Hct 45.6 % (30.3-42.9) H 10/17/17 13:55 MCV 78 fl (79-97) L 10/17/17 13:55 MCH 24 pg (28-32) L 10/17/17 13:55 MCHC 31 % (30-34) 10/17/17 13:55 RDW 16.4 % (13.2-15.2) H 10/17/17 13:55 Plt Count 239 K/mm3 (140-440) 10/17/17 13:55 Lymph % (Auto) 34.9 % (13.4-35.0) 10/17/17 13:55 [place] % (Auto) 9.4 % (0.0-7.3) H 10/17/17 13:55 Eos % (Auto) 8.2 % (0.0-4.3) H 10/17/17 13:55 Baso % (Auto) 1.1 % (0.0-1.8) 10/17/17 13:55 Lymph # 2.2 K/mm3 (1.2-5.4) 10/17/17 13:55 [place] # 0.6 K/mm3 (0.0-0.8) 10/17/17 13:55 Eos # 0.5 K/mm3 (0.0-0.4) H 10/17/17 13:55 Baso # 0.1 K/mm3 (0.0-0.1) 10/17/17 13:55 Seg Neutrophils % 46.4 % (40.0-70.0) 10/17/17 13:55 Seg Neutrophils # 2.9 K/mm3 (1.8-7.7) 10/17/17 13:55 PT 12.8 Sec. (12.2-14.9) 10/17/17 13:55 INR 0.92 (0.87-1.13) 10/17/17 13:55 APTT 28.5 Sec. (24.2-36.6) 10/17/17 13:55 D-Dimer 183.89 ng/mlDDU (0-234) 10/17/17 16:31 Sodium 142 mmol/L (137-145) 10/17/17 13:55 Potassium 3.7 mmol/L (3.6-5.0) 10/17/17 13:55 Chloride 100.1 mmol/L (98-107) 10/17/17 13:55 Carbon Dioxide 27 mmol/L (22-30) 10/17/17 13:55 Anion Gap 19 mmol/L 10/17/17 13:55 BUN 10 mg/dL (7-17) 10/17/17 13:55 Creatinine 0.8 mg/dL (0.7-1.2) 10/17/17 13:55 Estimated GFR > 60 ml/min 10/17/17 13:55 BUN/Creatinine Ratio 13 % 10/17/17 13:55 Glucose 91 mg/dL (65-100) 10/17/17 13:55 Calcium 10.0 mg/dL (8.4-10.2) 10/17/17 13:55 Total Bilirubin 0.20 mg/dL (0.1-1.2) 10/17/17 13:55 AST 32 units/L (5-40) 10/17/17 13:55 ALT 40 units/L (7-56) 10/17/17 13:55 Alkaline Phosphatase 73 units/L (35-129) 10/17/17 13:55 Total Creatine Kinase 47 units/L (30-135) 10/17/17 13:55 CK-MB (CK-2) 1.1 ng/mL (0.0-4.0) 10/17/17 13:55 CK-MB (CK-2) Rel Index 2.3 (0-4) 10/17/17 13:55 Troponin T < 0.010 ng/mL (0.00-0.029) 10/17/17 16:31 NT-Pro-B Natriuret Pep 21.91 pg/mL (0-900) 10/17/17 13:55 Total Protein 7.7 g/dL (6.3-8.2) 10/17/17 13:55 Albumin 4.3 g/dL (3.9-5) 10/17/17 13:55 Albumin/Globulin Ratio 1.3 % 10/17/17 13:55 - Imaging and Cardiology EKG: report reviewed Assessment and Plan Advance Directives: Yes (full code) VTE prophylaxis?: Chemical Plan of care discussed with patient/family: Yes - Patient Problems (1) Chest pain Current Visit: Yes Status: Acute Qualifiers: Chest pain type: unspecified Qualified Code(s): R07.9 - Chest pain, unspecified Plan to address problem: Chest pain workup Patient recently had a stress test in August 2017 Stress test was not ordered Cardiology consult requested Serial troponins Possible reflux esophagitis (2) GI bleed Current Visit: Yes Status: Acute Qualifiers: GI bleed type/associated pathology: anorectal hemorrhage Qualified Code(s) : K62.5 - Hemorrhage of anus and rectum Plan to address problem: Probably secondary to hemorrhoids Clotted hemorrhoid present on examination GI consult requested Check hemoglobin and hematocrit every 8 hours (3) COPD (chronic obstructive pulmonary disease) Current Visit: Yes Status: Chronic Qualifiers: COPD type: unspecified COPD Qualified Code(s): J44.9 - Chronic obstructive pulmonary disease, unspecified Plan to address problem: Continued Duonebs (4) Hypertension Current Visit: Yes Status: Chronic Qualifiers: Hypertension type: essential hypertension Qualified Code(s): I10 - Essential (primary) hypertension Plan to address problem: Continue antihypertensive (5) Peripheral neuropathy Current Visit: Yes Status: Chronic Qualifiers: Peripheral neuropathy type: polyneuropathy, unspecified Qualified Code(s): G62.9 - Polyneuropathy, unspecified Plan to address problem: Continue gabapentin (6) Bipolar disorder Current Visit: Yes Status: Chronic Qualifiers: Active/Remission status: currently active Plan to address problem: Continue lithium and Trileptal (7) CHF (congestive heart failure) Current Visit: Yes Status: Chronic Qualifiers: Heart failure type: combined systolic and diastolic Plan to address problem: Continue Lasix (8) DVT prophylaxis Current Visit: Yes Status: Acute Plan to address problem: SCDs only
[2017-10-18 06:24] LABS: Basophils # (Auto) 0.1 K/mm3 (0.0-0.1); Basophils % (Auto) 0.8 % (0.0-1.8); Eosinophils # (Auto) 0.5 K/mm3 (0.0-0.4); Eosinophils % (Auto) 6.8 % (0.0-4.3); Hematocrit 38.5 % (30.3-42.9); Hemoglobin 11.9 gm/dl (10.1-14.3); Lymphocytes # (Auto) 2.7 K/mm3 (1.2-5.4); Lymphocytes % (Auto) 39.7 % (13.4-35.0); Mean Corpuscular HGB Conc 31 % (30-34); Mean Corpuscular Volume 78 fl (79-97); Monocytes # (Auto) 0.7 K/mm3 (0.0-0.8); Monocytes % (Auto) 9.9 % (0.0-7.3); Platelet Count 211 K/mm3 (140-440); Red Blood Count 4.94 M/mm3 (3.65-5.03); Red Cell Distribution Width 15.9 % (13.2-15.2)
[2017-10-18 06:30] LABS: Mean Corpuscular Hemoglobin 24 pg (28-32)
[2017-10-18 06:51] LABS: Alanine Aminotransferase 35 units/L (7-56); Albumin 3.6 g/dL (3.9-5); BUN/Creatinine Ratio 15; Blood Urea Nitrogen 16 mg/dL (7-17); Calcium 9.1 mg/dL (8.4-10.2); Hemolysis Index 2
[2017-10-18] MEDS: XANAX PO SCH ×2 (06:52→16:11)
[2017-10-18] MEDS: NITRO DUR TD SCH (06:52)
[2017-10-18] MEDS ORDERED: NACL 0.9% 1000 ML 2,000 ML IV ONE (09:00)
[2017-10-18] MEDS: PULMICORT IH SCH ×2 (09:18→20:46)
[2017-10-18] MEDS: BROVANA NEBU IH SCH ×2 (09:19→20:46)
[2017-10-18] MEDS ORDERED: TRILEPTAL PO SCH (10:00)
[2017-10-18] MEDS ORDERED: NON-FORMULARY (Quetiapine Fumarate [Quetiapine Fumarate] 400 MG) PO SCH (10:00)
[2017-10-18] MEDS ORDERED: FLUTICASONE IH SCH (10:00)
[2017-10-18] MEDS ORDERED: SALMETEROL IH SCH (10:00)
[2017-10-18] MEDS ORDERED: NON-FORMULARY (Omeprazole Magnesium [Prilosec Otc] 20 MG) PO SCH (10:00)
[2017-10-18] MEDS ORDERED: LASIX PO SCH (10:00)
[2017-10-18] MEDS ORDERED: NON-FORMULARY (Tizanidine Hcl [Zanaflex] 4 MG) PO SCH (10:00)
[2017-10-18] MEDS ORDERED: FLONASE NS SCH (10:00)
[2017-10-18] MEDS ORDERED: K-DUR PO SCH (10:00)
[2017-10-18] MEDS ORDERED: NON-FORMULARY (Escitalopram Oxalate [Lexapro] 20 MG) PO SCH (10:00)
[2017-10-18] MEDS ORDERED: COREG PO SCH ×2 (10:00)
[2017-10-18] MEDS ORDERED: PRAZOSIN HCL 2 MG PO SCH (10:00)
--- NOTE | 2017-10-18 10:15 | Gastroenterology Consultation ---
<VERENICE NICE - Last Filed: 10/18/17 11:11> History of Present Illness - Reason for Consult Consult date: 10/18/17 GI bleed Requesting physician: FERNANDO ESCUDERO - History of Present Illness Patient is a 51y/o female with PMH of COPD (on home O2 and CPAP), DM, GERD, HTN , GA, CHF, CAD, PUD, arthritis, chronic back pain (followed by [facility] pain clinic), bipolar, rectal carcinoid, colon polyps, hemorrhoids, sleep apnea , PTSD, and schizophrenia who presented to ED with multiple complaints to include, CP, SOB, right great toe pain, chronic back pain, and rectal bleeding. This morning patient was resting in bed w/o acute distress. She reports intermittent rectal bleeding with bright red blood for approximately 1 week with last episode 2 days ago. No melena or hematemesis. Also admits to rectal pain w/o any recent rectal trauma. Denies fever, wt loss, abd pain, N/V, diarrhea, or constipation. She has a hx of rectal carcinoid and is previously known to our service with last consult 04/2017 for rectal bleeding. She underwent a colonoscopy at that time which revealed 2+ hemorrhoids requiring banding (bands x 3 placed) but otherwise normal with no evidence of recurrent rectal neoplasm. Past History Past Medical History: arthritis, CAD, COPD, diabetes, GERD, heart failure, hypertension, other (PUD, chronic back pain, rectal carcinoid, colon polyps, hemorrhoids, sleep apnea, PTSD, bipolar, schizophrenia) Past Surgical History: hysterectomy, Other (left knee, coronary stents x 2) Social history: denies: smoking, alcohol abuse Family history: hypertension Medications and Allergies Allergies Allergy/AdvReac Type Severity Reaction Status Date / Time azithromycin Allergy Shortness Verified 08/19/16 12:34 of Breath meloxicam Allergy Rash Verified 08/19/16 12:34 cephalexin monohydrate AdvReac Itching Verified 08/19/16 12:34 [From Keflex] pregabalin [From Lyrica] AdvReac Unknown Verified 08/19/16 12:34 shellfish derived AdvReac GI UPSET Verified 08/19/16 12:34 Sulfa (Sulfonamide AdvReac Itching Verified 08/19/16 12:34 Antibiotics) tomato [Tomato] AdvReac Unknown Verified 08/19/16 12:34 Home Medications Medication Instructions Recorded Confirmed Last Taken Type Carvedilol [Coreg] 6.25 tab PO BID 06/15/13 10/17/17 10/18/15 07:00 History Albuterol Sulfate [Proventil HFA] 2 puff IH Q4-6H PRN 07/03/13 10/17/17 11:50 History Potassium Chloride [K-Dur] 1 tab PO DAILY 07/03/13 10/17/17 10/18/15 07:00 History Fluticasone [Flonase] 2 spray NS QDAY 10/18/15 10/17/17 10/18/15 07:00 History Loratadine [Claritin] 10 mg PO DAILY 10/18/15 10/17/17 10/17/15 History Sertraline [Zoloft] 100 mg PO DAILY 10/18/15 10/17/17 10/18/15 07:00 History Tizanidine HCl [Zanaflex] 4 mg PO BID 04/16/17 10/17/17 Unknown History oxyCODONE ER [OxyCONTIN ER TAB] 20 mg PO TID 04/16/17 10/17/17 Unknown History ALPRAZolam [Xanax TAB] 2 mg PO BID 07/26/17 10/17/17 Unknown History Aspirin [Adult Low Dose Aspirin EC] 81 mg PO DAILY 07/26/17 10/17/17 Unknown History Escitalopram Oxalate [Lexapro] 20 mg PO DAILY 07/26/17 10/17/17 Unknown History Fluticasone/Salmeterol [Advair 1 each IH BID 07/26/17 10/17/17 Unknown History 250-50 Diskus] Nitroglycerin [Nitroglycerin Patch] 1 each TD DAILY 07/26/17 10/17/17 Unknown History Omeprazole Magnesium [PriLOSEC Otc] 20 mg PO DAILY 07/26/17 10/17/17 Unknown History Topiramate [Topamax] 100 mg PO BID 07/26/17 10/17/17 Unknown History Furosemide [Lasix TAB] 40 mg PO TID 10/17/17 10/17/17 Unknown History Gabapentin [Neurontin] 300 mg PO QID 10/17/17 10/17/17 Unknown History [place] Carbonate [Eskalith] 300 mg PO DAILY 10/17/17 10/17/17 Unknown History Loratadine [Claritin] 10 mg PO DAILY 10/17/17 10/17/17 Unknown History OXcarbazepine [Trileptal] 30 mg PO BID 10/17/17 10/17/17 Unknown History Prazosin HCl 2 mg PO DAILY 10/17/17 10/17/17 Unknown History Quetiapine Fumarate [QUEtiapine 400 mg PO DAILY 10/17/17 10/17/17 Unknown History Fumarate] amLODIPine [Norvasc] 10 mg PO DAILY 10/17/17 10/17/17 Unknown History Active Meds: Active Medications Acetaminophen (Tylenol) 650 mg PO Q4H PRN PRN Reason: Pain MILD(1-3)/Fever >100.5/NICHOLAS Albuterol (Proventil) 2.5 mg IH Q4HRT PRN PRN Reason: Shortness Of Breath Alprazolam (Xanax) 1 mg PO Q8H [facility] Last Admin: 10/18/17 06:52 Dose: Not Given Amlodipine Besylate (Norvasc) 10 mg PO DAILY [facility] Arformoterol Tartrate (Brovana Nebu) 15 mcg IH Q12HRT [facility] Last Admin: 10/18/17 09:19 Dose: 15 mcg Aspirin (Halfprin Ec) 81 mg PO DAILY [facility] Budesonide (Pulmicort) 0.5 mg IH Q12HRT [facility] Last Admin: 10/18/17 09:18 Dose: 0.5 mg Escitalopram Oxalate (Lexapro) 20 mg PO DAILY [facility] Fluticasone Propionate (Flonase) 100 mcg NS QDAY [facility] Gabapentin (Neurontin) 300 mg PO QID [facility] Sodium Chloride (Nacl 0.9% 1000 Ml) 1,000 mls @ 75 mls/hr IV DIRECT [facility] [place]ater[place] Carbonate (Eskalith) 300 mg PO DAILY [facility] Loratadine (Claritin) 10 mg PO DAILY [facility] Miscellaneous Medication (Tizanidine Hcl [Zanaflex]) 4 mg PO BID [facility] Morphine Sulfate (Morphine) 2 mg IV Q3H PRN PRN Reason: Pain, Moderate (4-6) Last Admin: 10/18/17 01:15 Dose: 2 mg Nitroglycerin (Nitro Dur) 0.1 mg TD DAILY@0600 [facility] Last Admin: 10/18/17 06:52 Dose: Not Given Ondansetron HCl (Zofran) 4 mg IV Q8H PRN PRN Reason: Nausea And Vomiting Oxcarbazepine (Trileptal) 30 mg PO BID [facility] Oxycodone HCl (Oxycontin) 20 mg PO TID [facility] Pantoprazole Sodium (Protonix) 20 mg PO QDAY [facility] Potassium Chloride (K-Dur) 10 meq PO DAILY [facility] Prazosin HCl (Minipress) 2 mg PO DAILY [facility] Quetiapine Fumarate (Seroquel) 400 mg PO DAILY [facility] Sertraline HCl (Zoloft) 100 mg PO DAILY [facility] Sodium Chloride (Sodium Chloride Flush Syringe 10 Ml) 10 ml IV BID [facility] Sodium Chloride (Sodium Chloride Flush Syringe 10 Ml) 10 ml IV PRN PRN PRN Reason: LINE FLUSH Topiramate (Topamax) 100 mg PO BID [facility] Review of Systems - Review of Systems All systems: negative Respiratory: shortness of breath Gastrointestinal: hematochezia, other (rectal pain) Exam - Constitutional Vital Signs: Temp Pulse Resp BP Pulse Ox 97.6 F 68 15 123/108 96 10/18/17 07:17 10/18/17 09:40 10/18/17 09:40 10/18/17 07:17 10/18/17 07:17 General appearance: no acute distress, obese - EENT Eyes: PERRL, EOM intact ENT: hearing intact - Respiratory Respiratory: bilateral: diminished (anterior) - Cardiovascular Rhythm: regular Heart Sounds: Present: S1 & S2 - Gastrointestinal General gastrointestinal: Present: soft, non-tender, normal bowel sounds Rectal Exam: other (no rectal bleeding, external hemorrhoids, thrombosed hemorrhoid) - Integumentary Integumentary: Present: warm, dry - Neurologic Neurological: alert and oriented x3 - Labs CBC & Chem 7: 10/18/17 05:17 10/18/17 05:17 Lab Results: Laboratory Results - last 24 hr 10/17/17 10/17/17 10/17/17 13:55 13:55 13:55 WBC 6.3 RBC 5.85 H Hgb 14.2 Hct 45.6 H MCV 78 L MCH 24 L MCHC 31 RDW 16.4 H Plt Count 239 Lymph % (Auto) 34.9 [place] % (Auto) 9.4 H Eos % (Auto) 8.2 H Baso % (Auto) 1.1 Lymph # 2.2 [place] # 0.6 Eos # 0.5 H Baso # 0.1 Seg Neutrophils % 46.4 Seg Neutrophils # 2.9 PT 12.8 INR 0.92 APTT 28.5 D-Dimer Sodium 142 Potassium 3.7 Chloride 100.1 Carbon Dioxide 27 Anion Gap 19 BUN 10 Creatinine 0.8 Estimated GFR > 60 BUN/Creatinine Ratio 13 Glucose 91 Calcium 10.0 Total Bilirubin 0.20 AST 32 ALT 40 Alkaline Phosphatase 73 Total Creatine Kinase 47 CK-MB (CK-2) 1.1 CK-MB (CK-2) Rel Index 2.3 Troponin T < 0.010 NT-Pro-B Natriuret Pep 21.91 Total Protein 7.7 Albumin 4.3 Albumin/Globulin Ratio 1.3 10/17/17 10/17/17 10/18/17 16:31 16:31 05:17 WBC 6.8 RBC 4.94 Hgb 11.9 Hct 38.5 D MCV 78 L MCH 24 L MCHC 31 RDW 15.9 H Plt Count 211 Lymph % (Auto) 39.7 H [place]ck[place] % (Auto) 9.9 H Eos % (Auto) 6.8 H Baso % (Auto) 0.8 Lymph # 2.7 Mckinley # 0.7 Eos # 0.5 H Baso # 0.1 Seg Neutrophils % 42.8 Seg Neutrophils # 2.9 PT INR APTT D-Dimer 183.89 Sodium Potassium Chloride Carbon Dioxide Anion Gap BUN Creatinine Estimated GFR BUN/Creatinine Ratio Glucose Calcium Total Bilirubin AST ALT Alkaline Phosphatase Total Creatine Kinase CK-MB (CK-2) CK-MB (CK-2) Rel Index Troponin T < 0.010 NT-Pro-B Natriuret Pep Total Protein Albumin Albumin/Globulin Ratio 10/18/17 05:17 WBC RBC Hgb Hct MCV MCH MCHC RDW Plt Count Lymph % (Auto) [place] % (Auto) Eos % (Auto) Baso % (Auto) Lymph # Mck[place] # Eos # Baso # Seg Neutrophils % Seg Neutrophils # PT INR APTT D-Dimer Sodium 141 Potassium 3.9 Chloride 103.1 Carbon Dioxide 28 Anion Gap 14 BUN 16 Creatinine 1.1 Estimated GFR > 60 BUN/Creatinine Ratio 15 Glucose 117 H Calcium 9.1 Total Bilirubin 0.20 AST 30 ALT 35 Alkaline Phosphatase 57 Total Creatine Kinase CK-MB (CK-2) CK-MB (CK-2) Rel Index Troponin T NT-Pro-B Natriuret Pep Total Protein 6.3 Albumin 3.6 L Albumin/Globulin Ratio 1.3 Assessment and Plan 1.hematochezia 2.rectal pain 3.h/o rectal carcinoid and hemorrhoids -HH stable (11.9/38.5) -continue to monitor H/H and transfuse as needed -no active signs of bleeding x 2 days -HD stable -last colonoscopy 04/2017 that revealed 2+ hemorrhoids (bands x 3 placed) but otherwise normal with no evidence of recurrent rectal neoplasm -etiology- most likely due to hemorrhoids with thrombosed external hemorrhoid revealed on rectal exam -no recommendations for a repeat colonoscopy at this time unless overt bleeding develops -will start on topical treatment with analgesic/steroid cream -apply ice intermittently x 24 hrs -sitz baths -high fiber diet along with stool softener to prevent constipation -if symptoms worsen or do not improve, recommend colo-rectal surgeon consult -recommend patient follow up as outpatient based on progress -no further recommendations at this time -will sign off, please call if needed <ANA CRISTINA ZAMUDIO - Last Filed: 10/18/17 16:24> Medications and Allergies Active Meds: Active Medications Acetaminophen (Tylenol) 650 mg PO Q4H PRN PRN Reason: Pain MILD(1-3)/Fever >100.5/NICHOLAS Albuterol (Proventil) 2.5 mg IH Q4HRT PRN PRN Reason: Shortness Of Breath Alprazolam (Xanax) 1 mg PO Q8H [facility] Last Admin: 10/18/17 16:11 Dose: 1 mg Amlodipine Besylate (Norvasc) 10 mg PO DAILY [facility] Last Admin: 10/18/17 11:24 Dose: Not Given Arformoterol Tartrate (Brovana Nebu) 15 mcg IH Q12HRT [facility] Last Admin: 10/18/17 09:19 Dose: 15 mcg Aspirin (Halfprin Ec) 81 mg PO DAILY [facility] Last Admin: 10/18/17 11:22 Dose: 81 mg Budesonide (Pulmicort) 0.5 mg IH Q12HRT [facility] Last Admin: 10/18/17 09:18 Dose: 0.5 mg Escitalopram Oxalate (Lexapro) 20 mg PO DAILY [facility] Last Admin: 10/18/17 11:22 Dose: 20 mg Fluticasone Propionate (Flonase) 100 mcg NS QDAY [facility] Last Admin: 10/18/17 11:25 Dose: Not Given Gabapentin (Neurontin) 300 mg PO QID [facility] Last Admin: 10/18/17 13:13 Dose: 300 mg Hydrocortisone Acetate (Proctosol-Hc) 1 applic [place] BID PRN PRN Reason: Hemorrhoids Sodium Chloride (Nacl 0.9% 1000 Ml) 1,000 mls @ 75 mls/hr IV DIRECT [facility] Lidocaine (Xylocaine Topical 2% 30ml) 1 applic TP Q2HR PRN PRN Reason: Analgesia [place] Carbonate (Eskalith) 300 mg PO DAILY [facility] Last Admin: 10/18/17 13:14 Dose: 300 mg Loratadine (Claritin) 10 mg PO DAILY [facility] Last Admin: 10/18/17 11:23 Dose: 10 mg Miscellaneous Medication (Tizanidine Hcl [Zanaflex]) 4 mg PO BID [facility] Morphine Sulfate (Morphine) 2 mg IV Q3H PRN PRN Reason: Pain, Moderate (4-6) Last Admin: 10/18/17 01:15 Dose: 2 mg Nitroglycerin (Nitro Dur) 0.1 mg TD DAILY@0600 [facility] Last Admin: 10/18/17 06:52 Dose: Not Given Ondansetron HCl (Zofran) 4 mg IV Q8H PRN PRN Reason: Nausea And Vomiting Oxcarbazepine (Trileptal) 30 mg PO BID [facility] Oxycodone HCl (Oxycontin) 20 mg PO TID [facility] Last Admin: 10/18/17 16:12 Dose: Not Given Pantoprazole Sodium (Protonix) 20 mg PO QDAY [facility] Last Admin: 10/18/17 11:23 Dose: 20 mg Potassium Chloride (K-Dur) 10 meq PO DAILY [facility] Last Admin: 10/18/17 11:22 Dose: 10 meq Prazosin HCl (Minipress) 2 mg PO DAILY [facility] Last Admin: 10/18/17 11:24 Dose: Not Given Quetiapine Fumarate (Seroquel) 400 mg PO DAILY [facility] Last Admin: 10/18/17 13:28 Dose: 400 mg Sertraline HCl (Zoloft) 100 mg PO DAILY [facility] Last Admin: 10/18/17 11:23 Dose: 100 mg Sodium Chloride (Sodium Chloride Flush Syringe 10 Ml) 10 ml IV BID [facility] Last Admin: 10/18/17 13:20 Dose: 10 ml Sodium Chloride (Sodium Chloride Flush Syringe 10 Ml) 10 ml IV PRN PRN PRN Reason: LINE FLUSH Topiramate (Topamax) 100 mg PO BID [facility] Last Admin: 10/18/17 13:17 Dose: 100 mg Exam - Constitutional Vital Signs: Temp Pulse Resp BP Pulse Ox 97.6 F 68 15 123/108 96 10/18/17 07:17 10/18/17 09:40 10/18/17 09:40 10/18/17 07:17 10/18/17 07:17 - Labs CBC & Chem 7: 10/18/17 13:09 10/18/17 05:17 Lab Results: Laboratory Results - last 24 hr 10/17/17 10/17/17 10/18/17 16:31 16:31 05:17 WBC 6.8 RBC 4.94 Hgb 11.9 Hct 38.5 D MCV 78 L MCH 24 L MCHC 31 RDW 15.9 H Plt Count 211 Lymph % (Auto) 39.7 H [place]ck[place] % (Auto) 9.9 H Eos % (Auto) 6.8 H Baso % (Auto) 0.8 Lymph # 2.7 Mck[place]ley # 0.7 Eos # 0.5 H Baso # 0.1 Seg Neutrophils % 42.8 Seg Neutrophils # 2.9 D-Dimer 183.89 Sodium Potassium Chloride Carbon Dioxide Anion Gap BUN Creatinine Estimated GFR BUN/Creatinine Ratio Glucose POC Glucose Calcium Total Bilirubin AST ALT Alkaline Phosphatase Troponin T < 0.010 Total Protein Albumin Albumin/Globulin Ratio 10/18/17 10/18/17 10/18/17 05:17 12:12 13:09 WBC RBC Hgb 13.8 Hct 44.5 H D MCV MCH MCHC RDW Plt Count Lymph % (Auto) [place] % (Auto) Eos % (Auto) Baso % (Auto) Lymph # [place]ck[place] # Eos # Baso # Seg Neutrophils % Seg Neutrophils # D-Dimer Sodium 141 Potassium 3.9 Chloride 103.1 Carbon Dioxide 28 Anion Gap 14 BUN 16 Creatinine 1.1 Estimated GFR > 60 BUN/Creatinine Ratio 15 Glucose 117 H POC Glucose 115 H Calcium 9.1 Total Bilirubin 0.20 AST 30 ALT 35 Alkaline Phosphatase 57 Troponin T Total Protein 6.3 Albumin 3.6 L Albumin/Globulin Ratio 1.3 10/18/17 16:20 WBC RBC Hgb Hct MCV MCH MCHC RDW Plt Count Lymph % (Auto) [place] % (Auto) Eos % (Auto) Baso % (Auto) Lymph # [place] # Eos # Baso # Seg Neutrophils % Seg Neutrophils # D-Dimer Sodium Potassium Chloride Carbon Dioxide Anion Gap BUN Creatinine Estimated GFR BUN/Creatinine Ratio Glucose POC Glucose 120 H Calcium Total Bilirubin AST ALT Alkaline Phosphatase Troponin T Total Protein Albumin Albumin/Globulin Ratio Assessment and Plan pt seen and examined. agree with note above. pt with recent colonoscopy with banding of hemorrhoids otherwise. recommend ice treatment for thrombosed hemorrhoids and consider surgery consult if no improvement.
--- NOTE | 2017-10-18 10:41 | Consultation ---
History of Present Illness Consult date: 10/18/17 Consult reason: chest pain History of present illness: This is a 52 year old woman who presented to this hospital with multiple complaints. Patient reports chronic dizziness, ultimately sustaining a fall causing injury to her right foot. Patient denies syncope. In addition, patient complained of chest pain, thus this cardiac consultation. There is no history of coronary artery disease. Patient has undergone extensive cardiac workup in the past. In 2010, she had a cardiac catheterization that documents normal coronaries, ejection fraction 60%. More recently, 8 months ago , she had a normal perfusion thallium stress test. An echocardiogram 3 months ago reports a normal left ventricular systolic function, ejection fraction 50-55 %. Patient chest pain is reproducible with palpation. She denies shortness of breath and palpitations. Cardiac enzymes were normal. 12 lead ECG is negative. Medications and Allergies Allergies Allergy/AdvReac Type Severity Reaction Status Date / Time azithromycin Allergy Shortness Verified 08/19/16 12:34 of Breath meloxicam Allergy Rash Verified 08/19/16 12:34 cephalexin monohydrate AdvReac Itching Verified 08/19/16 12:34 [From Keflex] pregabalin [From Lyrica] AdvReac Unknown Verified 08/19/16 12:34 shellfish derived AdvReac GI UPSET Verified 08/19/16 12:34 Sulfa (Sulfonamide AdvReac Itching Verified 08/19/16 12:34 Antibiotics) tomato [Tomato] AdvReac Unknown Verified 08/19/16 12:34 Home Medications Medication Instructions Recorded Confirmed Last Taken Type Carvedilol [Coreg] 6.25 tab PO BID 06/15/13 10/17/17 10/18/15 07:00 History Albuterol Sulfate [Proventil HFA] 2 puff IH Q4-6H PRN 07/03/13 10/17/17 11:50 History Potassium Chloride [K-Dur] 1 tab PO DAILY 07/03/13 10/17/17 10/18/15 07:00 History Fluticasone [Flonase] 2 spray NS QDAY 10/18/15 10/17/17 10/18/15 07:00 History Loratadine [Claritin] 10 mg PO DAILY 10/18/15 10/17/17 10/17/15 History Sertraline [Zoloft] 100 mg PO DAILY 10/18/15 10/17/17 10/18/15 07:00 History Tizanidine HCl [Zanaflex] 4 mg PO BID 04/16/17 10/17/17 Unknown History oxyCODONE ER [OxyCONTIN ER TAB] 20 mg PO TID 04/16/17 10/17/17 Unknown History ALPRAZolam [Xanax TAB] 2 mg PO BID 07/26/17 10/17/17 Unknown History Aspirin [Adult Low Dose Aspirin EC] 81 mg PO DAILY 07/26/17 10/17/17 Unknown History Escitalopram Oxalate [Lexapro] 20 mg PO DAILY 07/26/17 10/17/17 Unknown History Fluticasone/Salmeterol [Advair 1 each IH BID 07/26/17 10/17/17 Unknown History 250-50 Diskus] Nitroglycerin [Nitroglycerin Patch] 1 each TD DAILY 07/26/17 10/17/17 Unknown History Omeprazole Magnesium [PriLOSEC Otc] 20 mg PO DAILY 07/26/17 10/17/17 Unknown History Topiramate [Topamax] 100 mg PO BID 07/26/17 10/17/17 Unknown History Furosemide [Lasix TAB] 40 mg PO TID 10/17/17 10/17/17 Unknown History Gabapentin [Neurontin] 300 mg PO QID 10/17/17 10/17/17 Unknown History [place] Carbonate [Eskalith] 300 mg PO DAILY 10/17/17 10/17/17 Unknown History Loratadine [Claritin] 10 mg PO DAILY 10/17/17 10/17/17 Unknown History OXcarbazepine [Trileptal] 30 mg PO BID 10/17/17 10/17/17 Unknown History Prazosin HCl 2 mg PO DAILY 10/17/17 10/17/17 Unknown History Quetiapine Fumarate [QUEtiapine 400 mg PO DAILY 10/17/17 10/17/17 Unknown History Fumarate] amLODIPine [Norvasc] 10 mg PO DAILY 10/17/17 10/17/17 Unknown History Active Meds: Active Medications Acetaminophen (Tylenol) 650 mg PO Q4H PRN PRN Reason: Pain MILD(1-3)/Fever >100.5/NICHOLAS Albuterol (Proventil) 2.5 mg IH Q4HRT PRN PRN Reason: Shortness Of Breath Alprazolam (Xanax) 1 mg PO Q8H [facility] Last Admin: 10/18/17 06:52 Dose: Not Given Amlodipine Besylate (Norvasc) 10 mg PO DAILY [facility] Arformoterol Tartrate (Brovana Nebu) 15 mcg IH Q12HRT [facility] Last Admin: 10/18/17 09:19 Dose: 15 mcg Aspirin (Halfprin Ec) 81 mg PO DAILY [facility] Budesonide (Pulmicort) 0.5 mg IH Q12HRT [facility] Last Admin: 10/18/17 09:18 Dose: 0.5 mg Escitalopram Oxalate (Lexapro) 20 mg PO DAILY [facility] Fluticasone Propionate (Flonase) 100 mcg NS QDAY [facility] Gabapentin (Neurontin) 300 mg PO QID [facility] Sodium Chloride (Nacl 0.9% 1000 Ml) 1,000 mls @ 75 mls/hr IV DIRECT [facility] [place] Carbonate (Eskalith) 300 mg PO DAILY [facility] Loratadine (Claritin) 10 mg PO DAILY [facility] Miscellaneous Medication (Tizanidine Hcl [Zanaflex]) 4 mg PO BID [facility] Morphine Sulfate (Morphine) 2 mg IV Q3H PRN PRN Reason: Pain, Moderate (4-6) Last Admin: 10/18/17 01:15 Dose: 2 mg Nitroglycerin (Nitro Dur) 0.1 mg TD DAILY@0600 [facility] Last Admin: 10/18/17 06:52 Dose: Not Given Ondansetron HCl (Zofran) 4 mg IV Q8H PRN PRN Reason: Nausea And Vomiting Oxcarbazepine (Trileptal) 30 mg PO BID [facility] Oxycodone HCl (Oxycontin) 20 mg PO TID [facility] Pantoprazole Sodium (Protonix) 20 mg PO QDAY [facility] Potassium Chloride (K-Dur) 10 meq PO DAILY [facility] Prazosin HCl (Minipress) 2 mg PO DAILY [facility] Quetiapine Fumarate (Seroquel) 400 mg PO DAILY [facility] Sertraline HCl (Zoloft) 100 mg PO DAILY [facility] Sodium Chloride (Sodium Chloride Flush Syringe 10 Ml) 10 ml IV BID [facility] Sodium Chloride (Sodium Chloride Flush Syringe 10 Ml) 10 ml IV PRN PRN PRN Reason: LINE FLUSH Topiramate (Topamax) 100 mg PO BID [facility] Physical Examination Vital Signs Temp Pulse Resp BP Pulse Ox 98.1 F 86 20 124/85 98 10/17/17 12:06 10/17/17 12:06 10/17/17 12:06 10/17/17 12:06 10/17/17 12:06 General appearance: no acute distress HEENT: Positive: PERRL Cardiac: Positive: Reg Rate and Rhythm Lungs: Positive: Decreased Breath Sounds Neuro: Positive: Grossly Intact Extremities: Absent: edema Results 10/18/17 05:17 10/18/17 05:17 Cardiac Enzymes 10/17/17 10/18/17 Range/Units 13:55 05:17 AST 32 30 (5-40) units/L CK-MB (CK-2) 1.1 (0.0-4.0) ng/mL Coagulation 10/17/17 Range/Units 13:55 PT 12.8 (12.2-14.9) Sec. INR 0.92 (0.87-1.13) APTT 28.5 (24.2-36.6) Sec. CBC 10/17/17 10/18/17 Range/Units 13:55 05:17 WBC 6.3 6.8 (4.5-11.0) K/mm3 RBC 5.85 H 4.94 (3.65-5.03) M/mm3 Hgb 14.2 11.9 (10.1-14.3) gm/dl Hct 45.6 H 38.5 D (30.3-42.9) % Plt Count 239 211 (140-440) K/mm3 Lymph # 2.2 2.7 (1.2-5.4) K/mm3 [place] # 0.6 0.7 (0.0-0.8) K/mm3 Eos # 0.5 H 0.5 H (0.0-0.4) K/mm3 Baso # 0.1 0.1 (0.0-0.1) K/mm3 Comprehensive Metabolic Panel 10/17/17 10/18/17 Range/Units 13:55 05:17 Sodium 142 141 (137-145) mmol/L Potassium 3.7 3.9 (3.6-5.0) mmol/L Chloride 100.1 103.1 (98-107) mmol/L Carbon Dioxide 27 28 (22-30) mmol/L BUN 10 16 (7-17) mg/dL Creatinine 0.8 1.1 (0.7-1.2) mg/dL Glucose 91 117 H (65-100) mg/dL Calcium 10.0 9.1 (8.4-10.2) mg/dL AST 32 30 (5-40) units/L ALT 40 35 (7-56) units/L Alkaline Phosphatase 73 57 (35-129) units/L Total Protein 7.7 6.3 (6.3-8.2) g/dL Albumin 4.3 3.6 L (3.9-5) g/dL Assessment and Plan Chest pain, musculoskeletal Echo 07/2017: normal LVEF MPI 02/2017 normal perfusion [facility] 2010: normal coronaries Hypertension Hx of rectal carcinoid Hx of Bipolar disorder No further cardiac workup indicated. Conservative cardiac management.
[2017-10-18] MEDS: LEXAPRO PO SCH (11:22)
[2017-10-18] MEDS: HALFPRIN EC PO SCH (11:22)
[2017-10-18] MEDS: PROTONIX PO SCH (11:23)
[2017-10-18] MEDS: NEURONTIN PO SCH ×2 (11:23→13:13)
[2017-10-18] MEDS: CLARITIN PO SCH (11:23)
[2017-10-18] MEDS: ZOLOFT PO SCH (11:23)
[2017-10-18] MEDS: NORVASC PO SCH (11:24)
[2017-10-18] MEDS: MINIPRESS PO SCH (11:24)
[2017-10-18] MEDS: OxyCONTIN PO SCH ×2 (13:13→16:12)
[2017-10-18] MEDS: ESKALITH PO SCH (13:14)
[2017-10-18] MEDS: TOPAMAX PO SCH (13:17)
[2017-10-18] MEDS: SODIUM CHLORIDE FLUSH SYRINGE 10 ML IV SCH (13:20)
[2017-10-18] MEDS ORDERED: PROCTOSOL-HC PR PRN (14:00)
[2017-10-18] MEDS ORDERED: XYLOCAINE TOPICAL 2% 30ML TP PRN (14:00)
[2017-10-18 14:10] LABS: Hemoglobin 13.8 gm/dl (10.1-14.3)
[2017-10-18 14:11] LABS: Hematocrit 44.5 % (30.3-42.9)
--- NOTE | 2017-10-18 16:39 | Progress Note ---
Assessment and Plan Assessment and plan: 52-year-old female with history of hypertension peripheral neuropathy bipolar disorder and recent GI bleed about a month ago comes in for recurrence of lower GI bleed for 4 days which the patient attributes to hemorrhoids. Lower GI bleed today since morning. Patient also has chest pain intermittent in nature since morning. Patient was told that she has congestive heart failure by . Patient also has COPD and is on CPAP machine at home. No diaphoresis palpitations associated with chest pain. Patient had a stress test in August 2017 which was negative. (1) Chest pain Current Visit: Yes Status: Acute Qualifiers: Chest pain type: unspecified Qualified Code(s): R07.9 - Chest pain, unspecified Plan to address problem: Chest pain workup Patient recently had a stress test in August 2017 Cardiology consult requested and input noted, conservative management Serial troponins Possible reflux esophagitis (2) GI bleed with hematochisa, rectal hemmorrhiods Current Visit: Yes Status: Acute Qualifiers: GI bleed type/associated pathology: anorectal hemorrhage Qualified Code(s) : K62.5 - Hemorrhage of anus and rectum Plan to address problem: Probably secondary to hemorrhoids Clotted hemorrhoid present on examination Check hemoglobin and hematocrit every 8 hours Per GI pt with recent colonoscopy with banding of hemorrhoids otherwise. recommend ice treatment for thrombosed hemorrhoids and consider surgery consult if no improvement. will refer outpatient. (3) COPD (chronic obstructive pulmonary disease) Current Visit: Yes Status: Chronic Qualifiers: COPD type: unspecified COPD Qualified Code(s): J44.9 - Chronic obstructive pulmonary disease, unspecified Plan to address problem: Continued Duonebs (4) Hypertension Current Visit: Yes Status: Chronic Qualifiers: Hypertension type: essential hypertension Qualified Code(s): I10 - Essential (primary) hypertension Plan to address problem: Continue antihypertensive (5) Peripheral neuropathy Current Visit: Yes Status: Chronic Qualifiers: Peripheral neuropathy type: polyneuropathy, unspecified Qualified Code(s): G62.9 - Polyneuropathy, unspecified Plan to address problem: Continue gabapentin (6) Bipolar disorder Current Visit: Yes Status: Chronic Qualifiers: Active/Remission status: currently active Plan to address problem: Continue lithium and Trileptal (7) CHF (congestive heart failure) Current Visit: Yes Status: Chronic Qualifiers: Heart failure type: combined systolic and diastolic Plan to address problem: Continue Lasix (8) DVT prophylaxis Current Visit: Yes Status: Acute Plan to address problem: SCDs only History Interval history: Patient seen and examined, in no acute distress. Resting comfortably. Hospitalist Physical - Physical exam Narrative exam: General appearance: Present: no acute distress, well-nourished - EENT Eyes: Present: PERRL ENT: hearing intact, clear oral mucosa - Neck Neck: Present: supple, normal ROM - Respiratory Respiratory effort: normal Respiratory: bilateral: CTA - Cardiovascular Heart rate: 76 Rhythm: regular Heart Sounds: Present: S1 & S2. Absent: rub, click - Extremities Extremities: no ischemia, pulses intact, pulses symmetrical, No edema Peripheral Pulses: within normal limits - Abdominal General gastrointestinal: Present: soft, non-tender, non-distended, normal bowel sounds Female genitourinary: Present: normal - Rectal Rectal Exam: deferred - Integumentary Integumentary: Present: clear, warm, dry - Musculoskeletal Musculoskeletal: gait normal, strength equal bilaterally - Psychiatric Psychiatric: appropriate mood/affect, intact judgment & insight - Neurologic Neurologic: CNII-XII intact, moves all extremities - Allied Health Allied health notes reviewed: nursing, case management - Constitutional Vitals: Temp Pulse Resp BP Pulse Ox 97.6 F 68 15 123/108 96 10/18/17 07:17 10/18/17 09:40 10/18/17 09:40 10/18/17 07:17 10/18/17 07:17 General appearance: Present: no acute distress Results - Labs CBC & Chem 7: 10/18/17 13:09 10/18/17 05:17 Labs: Laboratory Last Values WBC 6.8 K/mm3 (4.5-11.0) 10/18/17 05:17 RBC 4.94 M/mm3 (3.65-5.03) 10/18/17 05:17 Hgb 13.8 gm/dl (10.1-14.3) 10/18/17 13:09 Hct 44.5 % (30.3-42.9) H D 10/18/17 13:09 MCV 78 fl (79-97) L 10/18/17 05:17 MCH 24 pg (28-32) L 10/18/17 05:17 MCHC 31 % (30-34) 10/18/17 05:17 RDW 15.9 % (13.2-15.2) H 10/18/17 05:17 Plt Count 211 K/mm3 (140-440) 10/18/17 05:17 Lymph % (Auto) 39.7 % (13.4-35.0) H 10/18/17 05:17 [place] % (Auto) 9.9 % (0.0-7.3) H 10/18/17 05:17 Eos % (Auto) 6.8 % (0.0-4.3) H 10/18/17 05:17 Baso % (Auto) 0.8 % (0.0-1.8) 10/18/17 05:17 Lymph # 2.7 K/mm3 (1.2-5.4) 10/18/17 05:17 [place] # 0.7 K/mm3 (0.0-0.8) 10/18/17 05:17 Eos # 0.5 K/mm3 (0.0-0.4) H 10/18/17 05:17 Baso # 0.1 K/mm3 (0.0-0.1) 10/18/17 05:17 Seg Neutrophils % 42.8 % (40.0-70.0) 10/18/17 05:17 Seg Neutrophils # 2.9 K/mm3 (1.8-7.7) 10/18/17 05:17 PT 12.8 Sec. (12.2-14.9) 10/17/17 13:55 INR 0.92 (0.87-1.13) 10/17/17 13:55 APTT 28.5 Sec. (24.2-36.6) 10/17/17 13:55 D-Dimer 183.89 ng/mlDDU (0-234) 10/17/17 16:31 Sodium 141 mmol/L (137-145) 10/18/17 05:17 Potassium 3.9 mmol/L (3.6-5.0) 10/18/17 05:17 Chloride 103.1 mmol/L (98-107) 10/18/17 05:17 Carbon Dioxide 28 mmol/L (22-30) 10/18/17 05:17 Anion Gap 14 mmol/L 10/18/17 05:17 BUN 16 mg/dL (7-17) 10/18/17 05:17 Creatinine 1.1 mg/dL (0.7-1.2) 10/18/17 05:17 Estimated GFR > 60 ml/min 10/18/17 05:17 BUN/Creatinine Ratio 15 % 10/18/17 05:17 Glucose 117 mg/dL (65-100) H 10/18/17 05:17 POC Glucose 120 (70-105) H 10/18/17 16:20 Calcium 9.1 mg/dL (8.4-10.2) 10/18/17 05:17 Total Bilirubin 0.20 mg/dL (0.1-1.2) 10/18/17 05:17 AST 30 units/L (5-40) 10/18/17 05:17 ALT 35 units/L (7-56) 10/18/17 05:17 Alkaline Phosphatase 57 units/L (35-129) 10/18/17 05:17 Total Creatine Kinase 47 units/L (30-135) 10/17/17 13:55 CK-MB (CK-2) 1.1 ng/mL (0.0-4.0) 10/17/17 13:55 CK-MB (CK-2) Rel Index 2.3 (0-4) 10/17/17 13:55 Troponin T < 0.010 ng/mL (0.00-0.029) 10/17/17 16:31 NT-Pro-B Natriuret Pep 21.91 pg/mL (0-900) 10/17/17 13:55 Total Protein 6.3 g/dL (6.3-8.2) 10/18/17 05:17 Albumin 3.6 g/dL (3.9-5) L 10/18/17 05:17 Albumin/Globulin Ratio 1.3 % 10/18/17 05:17
[2017-10-18 20:50] LABS: Hematocrit 42.1 % (30.3-42.9); Hemoglobin 13.1 gm/dl (10.1-14.3)
[2017-10-19] MEDS: TOPAMAX PO SCH ×2 (00:17→10:21)
[2017-10-19] MEDS: SODIUM CHLORIDE FLUSH SYRINGE 10 ML IV SCH (00:18)
[2017-10-19] MEDS: NEURONTIN PO SCH ×3 (00:19→10:21)
[2017-10-19] MEDS: XANAX PO SCH (01:36)
[2017-10-19] MEDS: OxyCONTIN PO SCH ×2 (01:36→10:39)
[2017-10-19] MEDS: MORPHINE IV PRN (04:31)
[2017-10-19 05:04] LABS: Basophils % (Auto) 0.7 % (0.0-1.8); Eosinophils # (Auto) 0.4 K/mm3 (0.0-0.4); Hematocrit 41.4 % (30.3-42.9); Hemoglobin 13.1 gm/dl (10.1-14.3); Lymphocytes # (Auto) 1.9 K/mm3 (1.2-5.4); Lymphocytes % (Auto) 27.9 % (13.4-35.0); Mean Corpuscular HGB Conc 32 % (30-34); Mean Corpuscular Volume 79 fl (79-97); Monocytes # (Auto) 0.6 K/mm3 (0.0-0.8); Monocytes % (Auto) 8.4 % (0.0-7.3); Platelet Count 204 K/mm3 (140-440); Red Blood Count 5.24 M/mm3 (3.65-5.03); Red Cell Distribution Width 16.4 % (13.2-15.2)
[2017-10-19 05:09] LABS: Mean Corpuscular Hemoglobin 25 pg (28-32)
[2017-10-19 05:33] LABS: Alanine Aminotransferase 38 units/L (7-56); BUN/Creatinine Ratio 11; Blood Urea Nitrogen 9 mg/dL (7-17); Calcium 9.2 mg/dL (8.4-10.2); Hemolysis Index 3
[2017-10-19] MEDS: NITRO DUR TD SCH (06:24)
[2017-10-19] MEDS: BROVANA NEBU IH SCH (08:06)
[2017-10-19] MEDS: PULMICORT IH SCH (08:06)
--- NOTE | 2017-10-19 08:20 | Discharge Summary ---
Providers - Providers Date of Admission: 10/17/17 19:33 Attending physician: KARUNA HAWK MD 10/18/17 04:48 Consult to Physician [CONS] Routine Comment: Consulting Provider: CLARITZA BRADFORD Physician Instructions: Reason For Exam: GI bleed 10/18/17 05:16 Consult to Physician [CONS] Routine Comment: Consulting Provider: GISELL ETIENNE Physician Instructions: Reason For Exam: Chest pain Primary care physician: [employer] Hospitalization Condition: Stable Hospital course: 52-year-old female with history of hypertension peripheral neuropathy bipolar disorder and recent GI bleed about a month ago comes in for recurrence of lower GI bleed for 4 days which the patient attributes to hemorrhoids. Lower GI bleed today since morning. Patient also has chest pain intermittent in nature since morning. Patient was told that she has congestive heart failure by . Patient also has COPD and is on CPAP machine at home. No diaphoresis palpitations associated with chest pain. Patient had a stress test in August 2017 which was negative. (1) Chest pain Current Visit: Yes Status: Acute Qualifiers: Chest pain type: unspecified Qualified Code(s): R07.9 - Chest pain, unspecified Plan to address problem: Chest pain workup Patient recently had a stress test in August 2017 Cardiology consult requested and input noted, conservative management Serial troponins Possible reflux esophagitis (2) GI bleed with hematochisa, rectal hemmorrhiods Current Visit: Yes Status: Acute Qualifiers: GI bleed type/associated pathology: anorectal hemorrhage Qualified Code(s) : K62.5 - Hemorrhage of anus and rectum Plan to address problem: Probably secondary to hemorrhoids Clotted hemorrhoid present on examination Check hemoglobin and hematocrit every 8 hours Per GI pt with recent colonoscopy with banding of hemorrhoids otherwise. recommend ice treatment for thrombosed hemorrhoids and consider surgery consult if no improvement. will refer outpatient. (3) COPD (chronic obstructive pulmonary disease) Current Visit: Yes Status: Chronic Qualifiers: COPD type: unspecified COPD Qualified Code(s): J44.9 - Chronic obstructive pulmonary disease, unspecified Plan to address problem: Continued Duonebs (4) Hypertension Current Visit: Yes Status: Chronic Qualifiers: Hypertension type: essential hypertension Qualified Code(s): I10 - Essential (primary) hypertension Plan to address problem: Continue antihypertensive (5) Peripheral neuropathy Current Visit: Yes Status: Chronic Qualifiers: Peripheral neuropathy type: polyneuropathy, unspecified Qualified Code(s): G62.9 - Polyneuropathy, unspecified Plan to address problem: Continue gabapentin (6) Bipolar disorder Current Visit: Yes Status: Chronic Qualifiers: Active/Remission status: currently active Plan to address problem: Continue lithium and Trileptal (7) CHF (congestive heart failure) Current Visit: Yes Status: Chronic Qualifiers: Heart failure type: combined systolic and diastolic Plan to address problem: Continue Lasix (8) DVT prophylaxis Current Visit: Yes Status: Acute Plan to address problem: SCDs only Disposition: DC-01 TO HOME OR SELFCARE Exam - Constitutional Vitals: Temp Pulse Resp BP Pulse Ox 97.6 F 71 16 124/72 91 10/19/17 05:00 10/19/17 08:07 10/19/17 08:07 10/19/17 06:24 10/19/17 05:00 Plan Activity: advance as tolerated, fall precautions Diet: low fat, advance as tolerated Special Instructions: record daily weights, record daily BP diary Additional Instructions: Follow with colorectal surgeon to be arranged by PCP Follow up with: PRIMARY MD CAYLA [Primary Care Provider] - 3-5 Days ANA CRISTINA ZAMUDIO MD [Staff Physician] - 7 Days Prescriptions: Hydrocortisone 2.5% [Proctosol-Hc] 1 applic OR BID PRN #1 tube PRN Reason: Hemorrhoids Lidocaine Topical 2% 30Ml [Xylocaine Topical 2% 30Ml] 1 applic TP Q2HR PRN #1 tube PRN Reason: Analgesia Polyethylene Glycol 3350 [Miralax 3350] 17 gm PO BID #30 packet traMADol [Ultram] 50 mg PO Q4HR PRN #14 tablet PRN Reason: Pain
[2017-10-19 08:43] VITALS: BP 120/62
--- NOTE | 2017-10-19 10:13 | Progress Note ---
Assessment and Plan 1. Atypical chest pain noncardiac in origin 2. Obesity 3. Essential hypertension 4. COPD Plan. Cardiac-yao stable symptoms noncardiac in origin no further cardiac workup planned Subjective Date of service: 10/19/17 Interval history: No cardiac symptoms Objective Vital Signs Temp Pulse Pulse Pulse Resp Resp Resp 10/19/17 08:37 100 H 10/19/17 08:09 98.9 F 99 H 20 10/19/17 08:07 71 16 10/19/17 06:24 10/19/17 05:00 97.6 F 99 H 20 10/19/17 04:06 100 H 10/19/17 00:45 20 10/19/17 00:31 99.7 F H 104 H 20 10/18/17 22:35 20 10/18/17 20:58 72 16 10/18/17 20:46 74 16 10/18/17 20:03 97 H 10/18/17 20:02 98.8 F 97 H 16 10/18/17 15:47 98.6 F 74 22 10/18/17 11:05 97.5 F L 69 18 BP BP Pulse Ox 10/19/17 08:37 10/19/17 08:09 120/62 100 10/19/17 08:07 10/19/17 06:24 124/72 10/19/17 05:00 124/72 91 10/19/17 04:06 91 10/19/17 00:45 96 10/19/17 00:31 108/73 98 10/18/17 22:35 10/18/17 20:58 10/18/17 20:46 10/18/17 20:03 95 10/18/17 20:02 127/59 79 L 10/18/17 15:47 111/67 94 10/18/17 11:05 99/61 99 - Physical Examination General: Appears Well, No Apparent Distress HEENT: Positive: PERRL, Normocephaly, Mucus Membranes Moist Neck: Positive: neck supple, trachea midline. Negative: JVD/HJR Cardiac: Positive: Reg Rate and Rhythm, S1/S2, PMI, Laterally Displaced Lungs: Positive: clear to auscultation, No Wheeze, Rales, Rhonchi Neuro: Positive: Grossly Intact Abdomen: Positive: Unremarkable, Soft, Active Bowel Sounds Extremities: Absent: edema - Labs and Meds Cardiac Enzymes 10/19/17 Range/Units 04:03 AST 32 (5-40) units/L CBC 10/18/17 10/18/17 10/19/17 Range/Units 13:09 20:11 04:03 WBC 6.8 (4.5-11.0) K/mm3 RBC 5.24 H (3.65-5.03) M/mm3 Hgb 13.8 13.1 13.1 (10.1-14.3) gm/dl Hct 44.5 H D 42.1 41.4 (30.3-42.9) % Plt Count 204 (140-440) K/mm3 Lymph # 1.9 (1.2-5.4) K/mm3 [place] # 0.6 (0.0-0.8) K/mm3 Eos # 0.4 (0.0-0.4) K/mm3 Baso # 0.0 (0.0-0.1) K/mm3 Comprehensive Metabolic Panel 10/19/17 Range/Units 04:03 Sodium 141 (137-145) mmol/L Potassium 4.5 (3.6-5.0) mmol/L Chloride 104.7 (98-107) mmol/L Carbon Dioxide 29 (22-30) mmol/L BUN 9 (7-17) mg/dL Creatinine 0.8 (0.7-1.2) mg/dL Glucose 112 H (65-100) mg/dL Calcium 9.2 (8.4-10.2) mg/dL AST 32 (5-40) units/L ALT 38 (7-56) units/L Alkaline Phosphatase 61 (35-129) units/L Total Protein 7.0 (6.3-8.2) g/dL Albumin 4.0 (3.9-5) g/dL - Imaging and Cardiology EKG: report reviewed
[2017-10-19] MEDS: ZOLOFT PO SCH (10:20)
[2017-10-19] MEDS: LEXAPRO PO SCH (10:20)
[2017-10-19] MEDS: CLARITIN PO SCH (10:20)
[2017-10-19] MEDS: PROTONIX PO SCH (10:20)
[2017-10-19] MEDS: HALFPRIN EC PO SCH (10:21)
[2017-10-19] MEDS: ESKALITH PO SCH (10:21)
[2017-10-19] MEDS: MINIPRESS PO SCH (10:22)
[2017-10-19] MEDS: NORVASC PO SCH (10:22)
== END 2017-10-19 12:00 | disposition home or self-care (01) ==
LOC: ED 11:59 → 4A 19:33
PROVIDERS: ADMIT Internal Medicine; ATTEND Internal Medicine
DX: R07.89 Other chest pain (principal); K62.5 Hemorrhage of anus and rectum; J44.9 Chronic obstructive pulmonary disease, unspecified; I11.0 Hypertensive heart disease with heart failure; I50.9 Heart failure, unspecified; F31.9 Bipolar disorder, unspecified; K21.9 Gastro-esophageal reflux disease without esophagitis; E11.42 Type 2 diabetes mellitus with diabetic polyneuropathy; M19.90 Unspecified osteoarthritis, unspecified site; Z79.899 Other long term (current) drug therapy
CPT/HCPCS: 36415; 71046; 73630; 80053; 82550; 82553; 82962; 83880; 84484; 85014; 85018; 85025; 85379; 85610; 85730; 93005; 93010; 94640; 94660; 96361; 96372; 96374; 96375; 96376; 99285; G0378; J1200; J2270; J7030

== ENCOUNTER 2018-08-21 19:26 | Emergency (ER) | payer MEDICAID ==
--- NOTE | 2018-08-21 19:35 | Emergency Department Report ---
Blank Doc - Documentation Documentation: This is a 53-year-old female that presents with abdominal pain without any arabella sea or vomiting. This initial assessment/diagnostic orders/clinical plan/treatment(s) is/are subject to change based on patient's health status, clinical progression and re- assessment by fellow clinical providers in the ED. Further treatment and workup at subsequent clinical providers discretion. Patient/guardians urged not to elope from the ED as their condition may be serious if not clinically assessed and managed. Initial orders include: 1- Patient sent to [facility] for further evaluation and treatment 2- labs 3- UA
[2018-08-21 19:51] LABS: Basophils # (Auto) 0.1 K/mm3 (0.0-0.1); Basophils % (Auto) 1.1 % (0.0-1.8); Eosinophils # (Auto) 0.4 K/mm3 (0.0-0.4); Eosinophils % (Auto) 5.2 % (0.0-4.3); Hematocrit 38.9 % (30.3-42.9); Hemoglobin 13.1 gm/dl (10.1-14.3); Lymphocytes # (Auto) 2.7 K/mm3 (1.2-5.4); Lymphocytes % (Auto) 32.2 % (13.4-35.0); Mean Corpuscular HGB Conc 34 % (30-34); Mean Corpuscular Volume 78 fl (79-97); Monocytes # (Auto) 0.7 K/mm3 (0.0-0.8); Platelet Count 239 K/mm3 (140-440); Red Blood Count 5.01 M/mm3 (3.65-5.03); Red Cell Distribution Width 15.7 % (13.2-15.2)
[2018-08-21 20:08] LABS: Alanine Aminotransferase 48 units/L (7-56); Albumin 4.3 g/dL (3.9-5); BUN/Creatinine Ratio 10; Blood Urea Nitrogen 9 mg/dL (7-17); Calcium 9.5 mg/dL (8.4-10.2); Hemolysis Index 12
[2018-08-21 20:10] LABS: Bilirubin,Direct < 0.2 mg/dL (0-0.2)
[2018-08-21] MEDS ORDERED: DILAUDID IV ONE (20:25)
[2018-08-21] MEDS ORDERED: PEPCID IV ONE (20:26)
[2018-08-21] MEDS ORDERED: ZOFRAN IV ONE (20:26)
--- NOTE | 2018-08-21 20:30 | Emergency Department Report ---
ED Abdominal Pain HPI - General Chief Complaint: Abdominal Pain Stated Complaint: ABDOMINAL PAIN, SHORTNESS OF BREATH Time Seen by Provider: 08/21/18 19:33 Source: patient Mode of arrival: Ambulatory Limitations: No Limitations - History of Present Illness Initial Comments: Patient is a 53-year-old Female with past medical history of asthma/COPD, conges tive heart failure, diabetes, coronary disease with an IN in the 90s as well as hypertension who is presenting with epigastric pain for the last 2 weeks. Patient states that she is scheduled on Saturday to have upper GI to rule out ulcers and peptic ulcer disease. The patient states it's a 8 out of 10 pain that is crampy and twisting pain with some radiation to the mid back. The patient states she is in pain management takes oxycodone which is not helping. Patient was given Carafate by her insurance plan specialist which she states also is not helping. Patient states pain is doing worse and worsened tonight after attempted to eat soup. Patient states she's had some nausea vomiting but denies fevers chills diarrhea, cold or congestion. Patient's breathing is stable as long as she is on oxygen which she uses at home for her COPD. Severity scale (0 -10): 8 - Related Data Home Medications Medication Instructions Recorded Confirmed Last Taken Carvedilol [Coreg] 6.25 tab PO BID 06/15/13 08/21/18 08/21/18 Albuterol Sulfate [Proventil HFA] 2 puff IH Q4-6H PRN 07/03/13 08/21/18 08/21/18 Potassium Chloride [K-Dur] 1 tab PO DAILY 07/03/13 08/21/18 08/21/18 Fluticasone [Flonase] 2 spray NS QDAY 10/18/15 08/21/18 08/21/18 Loratadine [Claritin] 10 mg PO DAILY 10/18/15 08/21/18 08/21/18 Sertraline [Zoloft] 100 mg PO DAILY 10/18/15 08/21/18 08/21/18 Tizanidine HCl [Zanaflex] 4 mg PO BID 04/16/17 08/21/18 08/21/18 oxyCODONE ER [OxyCONTIN ER TAB] 20 mg PO TID 04/16/17 08/21/18 08/21/18 ALPRAZolam [Xanax TAB] 2 mg PO BID 07/26/17 08/21/18 08/21/18 Aspirin [Adult Low Dose Aspirin EC] 81 mg PO DAILY 07/26/17 08/21/18 08/21/18 Escitalopram Oxalate [Lexapro] 20 mg PO DAILY 07/26/17 08/21/18 08/21/18 Fluticasone/Salmeterol (Nf) 1 each IH BID 07/26/17 08/21/18 08/21/18 [Advair 250-50 Diskus (Nf)] Nitroglycerin [Nitroglycerin Patch] 1 each TD DAILY 07/26/17 08/21/18 08/21/18 Omeprazole Magnesium [PriLOSEC Otc] 20 mg PO DAILY 07/26/17 08/21/18 08/21/18 Topiramate [Topamax] 100 mg PO BID 07/26/17 08/21/18 08/21/18 Furosemide [Lasix TAB] 40 mg PO TID 10/17/17 08/21/18 08/21/18 Gabapentin [Neurontin] 300 mg PO QID 10/17/17 08/21/18 08/21/18 [place] Carbonate [Eskalith] 300 mg PO DAILY 10/17/17 08/21/18 08/21/18 Loratadine [Claritin] 10 mg PO DAILY 10/17/17 08/21/18 08/21/18 OXcarbazepine [Trileptal] 30 mg PO BID 10/17/17 08/21/18 08/21/18 Prazosin HCl 2 mg PO DAILY 10/17/17 08/21/18 08/21/18 Quetiapine Fumarate [QUEtiapine 400 mg PO DAILY 10/17/17 08/21/18 08/21/18 Fumarate] amLODIPine [Norvasc] 10 mg PO DAILY 10/17/17 08/21/18 08/21/18 Previous Rx's Medication Instructions Recorded Last Taken Type Hydrocortisone 2.5% [Proctosol-Hc] 1 applic OR BID PRN #1 tube 10/19/17 08/21/18 Rx Lidocaine Topical 2% 30Ml 1 applic TP Q2HR PRN #1 tube 10/19/17 08/21/18 Rx [Xylocaine Topical 2% 30Ml] Polyethylene Glycol 3350 [Miralax 17 gm PO BID #30 packet 10/19/17 08/21/18 Rx 3350] traMADol [Ultram] 50 mg PO Q4HR PRN #14 tablet 10/19/17 08/21/18 Rx Dicyclomine [Bentyl] 10 mg PO QID #10 capsule 08/21/18 Unknown Rx Ondansetron [Zofran Odt] 4 mg PO Q8HR #10 tab.rapdis 08/21/18 Unknown Rx Pantoprazole [Protonix] 40 mg PO QDAY #30 tablet 08/21/18 Unknown Rx Allergies Allergy/AdvReac Type Severity Reaction Status Date / Time azithromycin Allergy Shortness Verified 08/19/16 12:34 of Breath meloxicam Allergy Rash Verified 08/19/16 12:34 cephalexin monohydrate AdvReac Itching Verified 08/19/16 12:34 [From Keflex] pregabalin [From Lyrica] AdvReac Unknown Verified 08/19/16 12:34 shellfish derived AdvReac GI UPSET Verified 08/19/16 12:34 Sulfa (Sulfonamide AdvReac Itching Verified 08/19/16 12:34 Antibiotics) tomato [Tomato] AdvReac Unknown Verified 08/19/16 12:34 ED Review of Systems ROS: Stated complaint: ABDOMINAL PAIN, SHORTNESS OF BREATH Other details as noted in HPI Comment: All other systems reviewed and negative ED Past Medical Hx - Past Medical History Previous Medical History?: Yes Hx Hypertension: Yes (1992) Hx Heart Attack/AMI: Yes () Hx Congestive Heart Failure: Yes Hx Diabetes: Yes Hx GERD: Yes (peptic ulcer) Hx Liver Disease: Yes (hepatitis a) Hx Renal Disease: No Hx Arthritis: Yes Hx Psychiatric Treatment: Yes (PTSD, Schizophrenia, Bipolar) Hx Asthma: Yes Hx COPD: Yes Hx HIV: No Additional medical history: Sleep apnea using CPAP machine at night, Home 02 concentrated oxygen 2 liters, Spinal problems buldging disc, and hip problems, gets injections at [facility] with Dr. Hernández, wants to report her psychiatrist is Dr. Mynor Urrutia. Hemorrhoids - Surgical History Past Surgical History?: Yes Hx Coronary Stent: Yes (2002 (pt states she has 2 stents)) Additional Surgical History: Hysterectomy. left knee surgery - Social History Smoking Status: Never Smoker Substance Use Type: None - Medications Home Medications: Home Medications Medication Instructions Recorded Confirmed Last Taken Type Carvedilol [Coreg] 6.25 tab PO BID 06/15/13 08/21/18 08/21/18 History Albuterol Sulfate [Proventil HFA] 2 puff IH Q4-6H PRN 07/03/13 08/21/18 08/21/18 History Potassium Chloride [K-Dur] 1 tab PO DAILY 07/03/13 08/21/18 08/21/18 History Fluticasone [Flonase] 2 spray NS QDAY 10/18/15 08/21/18 08/21/18 History Loratadine [Claritin] 10 mg PO DAILY 10/18/15 08/21/18 08/21/18 History Sertraline [Zoloft] 100 mg PO DAILY 10/18/15 08/21/18 08/21/18 History Tizanidine HCl [Zanaflex] 4 mg PO BID 04/16/17 08/21/18 08/21/18 History oxyCODONE ER [OxyCONTIN ER TAB] 20 mg PO TID 04/16/17 08/21/18 08/21/18 History ALPRAZolam [Xanax TAB] 2 mg PO BID 07/26/17 08/21/18 08/21/18 History Aspirin [Adult Low Dose Aspirin EC] 81 mg PO DAILY 07/26/17 08/21/18 08/21/18 History Escitalopram Oxalate [Lexapro] 20 mg PO DAILY 07/26/17 08/21/18 08/21/18 History Fluticasone/Salmeterol (Nf) 1 each IH BID 07/26/17 08/21/18 08/21/18 History [Advair 250-50 Diskus (Nf)] Nitroglycerin [Nitroglycerin Patch] 1 each TD DAILY 07/26/17 08/21/18 08/21/18 History Omeprazole Magnesium [PriLOSEC Otc] 20 mg PO DAILY 07/26/17 08/21/18 08/21/18 History Topiramate [Topamax] 100 mg PO BID 07/26/17 08/21/18 08/21/18 History Furosemide [Lasix TAB] 40 mg PO TID 10/17/17 08/21/18 08/21/18 History Gabapentin [Neurontin] 300 mg PO QID 10/17/17 08/21/18 08/21/18 History [place] Carbonate [Eskalith] 300 mg PO DAILY 10/17/17 08/21/18 08/21/18 History Loratadine [Claritin] 10 mg PO DAILY 10/17/17 08/21/18 08/21/18 History OXcarbazepine [Trileptal] 30 mg PO BID 10/17/17 08/21/18 08/21/18 History Prazosin HCl 2 mg PO DAILY 10/17/17 08/21/18 08/21/18 History Quetiapine Fumarate [QUEtiapine 400 mg PO DAILY 10/17/17 08/21/18 08/21/18 History Fumarate] amLODIPine [Norvasc] 10 mg PO DAILY 10/17/17 08/21/18 08/21/18 History Hydrocortisone 2.5% [Proctosol-Hc] 1 applic OR BID PRN #1 tube 10/19/17 08/21/18 08/21/18 Rx Lidocaine Topical 2% 30Ml 1 applic TP Q2HR PRN #1 tube 10/19/17 08/21/18 08/21/18 Rx [Xylocaine Topical 2% 30Ml] Polyethylene Glycol 3350 [Miralax 17 gm PO BID #30 packet 10/19/17 08/21/18 08/21/18 Rx 3350] traMADol [Ultram] 50 mg PO Q4HR PRN #14 tablet 10/19/17 08/21/18 08/21/18 Rx Dicyclomine [Bentyl] 10 mg PO QID #10 capsule 08/21/18 Unknown Rx Ondansetron [Zofran Odt] 4 mg PO Q8HR #10 tab.rapdis 08/21/18 Unknown Rx Pantoprazole [Protonix] 40 mg PO QDAY #30 tablet 08/21/18 Unknown Rx ED Physical Exam - General Limitations: No Limitations General appearance: alert, in no apparent distress - Head Head exam: Present: atraumatic, normocephalic - Eye Eye exam: Present: normal appearance, PERRL, EOMI - ENT ENT exam: Present: mucous membranes moist - Neck Neck exam: Present: normal inspection - Respiratory Respiratory exam: Present: normal lung sounds bilaterally. Absent: respiratory distress, wheezes, rales, rhonchi - Cardiovascular Cardiovascular Exam: Present: regular rate, normal rhythm, normal heart sounds. Absent: systolic murmur, diastolic murmur, rubs, gallop - GI/Abdominal GI/Abdominal exam: Present: soft, distended, tenderness (epigastric), normal bowel sounds. Absent: guarding, rebound, rigid - Extremities Exam Extremities exam: Present: normal inspection - Back Exam Back exam: Present: normal inspection - Neurological Exam Neurological exam: Present: alert, oriented X3 - Psychiatric Psychiatric exam: Present: normal affect, normal mood - Skin Skin exam: Present: warm, dry, intact, normal color. Absent: rash ED Course Vital Signs 08/21/18 08/21/18 08/21/18 19:34 20:12 20:16 Temperature 99.1 F Pulse Rate 84 77 83 Respiratory 20 28 H 28 H Rate Blood Pressure 128/74 120/72 O2 Sat by Pulse 100 98 Oximetry 08/21/18 08/21/18 08/21/18 20:30 20:46 21:18 Temperature Pulse Rate 80 89 82 Respiratory 15 18 22 Rate Blood Pressure 120/72 120/72 115/48 O2 Sat by Pulse 98 96 97 Oximetry 08/21/18 08/21/18 08/21/18 21:30 21:46 22:00 Temperature Pulse Rate 80 76 Respiratory 12 14 14 Rate Blood Pressure 114/57 114/57 100/44 O2 Sat by Pulse 98 98 97 Oximetry 08/21/18 08/21/18 22:16 22:30 Temperature Pulse Rate 83 74 Respiratory 18 14 Rate Blood Pressure 114/57 114/57 O2 Sat by Pulse 97 98 Oximetry - Reevaluation(s) Reevaluation #1: 08/21/18 20:30 Review the patient's laboratory studies which do show elevated lipase. Patient will be sent to CT for evaluation of acute pancreatitis. Patient was given meds for pain/nausea control. ED Medical Decision Making - Lab Data Result diagrams: 08/21/18 19:39 08/21/18 19:39 Lab Results 08/21/18 08/21/18 Range/Units 19:39 19:39 WBC 8.3 (4.5-11.0) K/mm3 RBC 5.01 (3.65-5.03) M/mm3 Hgb 13.1 (10.1-14.3) gm/dl Hct 38.9 (30.3-42.9) % MCV 78 L (79-97) fl MCH 26 L (28-32) pg MCHC 34 (30-34) % RDW 15.7 H (13.2-15.2) % Plt Count 239 (140-440) K/mm3 Lymph % (Auto) 32.2 (13.4-35.0) % [place] % (Auto) 8.0 H (0.0-7.3) % Eos % (Auto) 5.2 H (0.0-4.3) % Baso % (Auto) 1.1 (0.0-1.8) % Lymph # 2.7 (1.2-5.4) K/mm3 [place] # 0.7 (0.0-0.8) K/mm3 Eos # 0.4 (0.0-0.4) K/mm3 Baso # 0.1 (0.0-0.1) K/mm3 Seg Neutrophils % 53.5 (40.0-70.0) % Seg Neutrophils # 4.4 (1.8-7.7) K/mm3 Sodium 140 (137-145) mmol/L Potassium 3.9 (3.6-5.0) mmol/L Chloride 107.7 H (98-107) mmol/L Carbon Dioxide 20 L (22-30) mmol/L Anion Gap 16 mmol/L BUN 9 (7-17) mg/dL Creatinine 0.9 (0.7-1.2) mg/dL Estimated GFR > 60 ml/min BUN/Creatinine Ratio 10 % Glucose 106 H (65-100) mg/dL Calcium 9.5 (8.4-10.2) mg/dL Total Bilirubin < 0.20 (0.1-1.2) mg/dL Direct Bilirubin < 0.2 (0-0.2) mg/dL Indirect Bilirubin 0.0 mg/dL AST 32 (5-40) units/L ALT 48 (7-56) units/L Alkaline Phosphatase 64 (35-129) units/L Total Protein 7.4 (6.3-8.2) g/dL Albumin 4.3 (3.9-5) g/dL Albumin/Globulin Ratio 1.4 % Lipase 78 H (13-60) units/L - Radiology Data [facility] [address] [place] [address] Cat Scan Report Signed Patient: SHAKIRA RUSS MR#: [id number] : 1965 Acct:[id number] Age/Sex: 53 / F ADM Date: 08/21/18 Loc: ED Attending Dr: Ordering Physician: YARIEL JOYA MD Date of Service: 08/21/18 Procedure(s): CT abdomen pelvis w con Accession Number(s): [id number] cc: YARIEL JOYA MD PROCEDURE: CT ABDOMEN PELVIS W CON TECHNIQUE: Computerized axial tomography of the abdomen and pelvis was performed after the IV injection of iodinated nonionic contrast. CT DOSE LENGTH PRODUCT: 3689.9 mGycm HISTORY: elgastric pain with elevated pancreatic enzymes COMPARISONS: None . FINDINGS: Lower Lung hyde: Minimal dependent atelectasis. Lung bases otherwise are clear. Upper Abdomen: Liver density diffusely decreased consistent with fatty infiltration. The liver is otherwise unremarkable. The gallbladder showed no abnormalities. The pancreas, the adrenal glands and the spleen are unremarkable. No pancreatic masses are identified. No evidence of pseudocyst. No inflammatory changes are identified around the pancreas. Kidneys, Ureters and Urinary bladder: No abnormalities are seen. Retroperitoneum: Atherosclerotic changes are seen in the abdominal aorta. No aneurysm is visualized. Nonspecific subcentimeter lymph nodes are seen in the retroperitoneum. No pathologically enlarged lymph nodes are identified. Bowel: No abnormalities are seen. No evidence of bowel obstruction ascites or free intraperitoneal gas. Normal-appearing appendix is seen in the right lower quadrant. Small umbilical hernia visual ized containing adipose tissue. No herniated loops of bowel are seen. Reproductive organs: Uterus is surgically absent. The ovaries are visualized. There is cystic change visualized in both ovaries, the largest cyst on the right measures 3.5 cm. The largest cyst on the left measures 3.5 cm. Other: No acute bone abnormalities are visualized. IMPRESSION: Abnormal cystic change visualized within both ovaries. Cystic areas are seen in both ovaries measuring up to 3.5 cm. Pelvic ultrasound is suggested. Uterus is surgically absent. Fatty infiltration of the liver. No pancreatic abnormalities are identified. Minimal umbilical hernia present. This document is electronically signed by Anatoly Patel MD., August 21 2018 09:43:47 PM ET Transcribed By: DFN Dictated By: ANATOLY PATEL MD Electronically Authenticated By: ANATOLY PATEL MD Signed Date/Time: 08/21/182144 DD/ 15 TD/TT: 08/21/18 21 - Medical Decision Making Patient was given 10 Dilaudid for pain. Patient states that her pain did decrease to approximately a 5 out of 10. Patient did exhibit some itchiness and has mild maculopapular rash on her back. His given 25 mg Benadryl for probable allergic reaction. Patient's given Bentyl and Toradol as well for pain control. Patient continued to state that her pain was a 5 out of 10 however she is resting comfortably at this time and talking with family. CT does not appear to show acute appendicitis despite the slight bump in her lipase. For this reason the patient is nonicteric candidate for inpatient admission. Patient to bees started on Bentyl and Zofran and Protonix at home and the patient to follow-up with her insurance plan specialist. Critical care attestation.: If time is entered above; I have spent that time in minutes in the direct care of this critically ill patient, excluding procedure time. ED Disposition Clinical Impression: PUD (peptic ulcer disease) Acute pancreatitis Qualifiers: Pancreatitis type: other Acute pancreatitis complication: unspecified Qualified Code(s): K85.80 - Other acute pancreatitis without necrosis or infection Disposition: DC-01 TO HOME OR SELFCARE Is pt being admited?: No Does the pt Need Aspirin: No Condition: Stable Instructions: Abdominal Pain (ED) Additional Instructions: Please continue to take the Carafate as well as your regularly scheduled pain medications that are prescribed by her pain specialist Referrals: SCOTTY HINDS MD [Staff Physician] - 3-5 Days Time of Disposition: 23:23
--- NOTE | 2018-08-21 21:45 | Cat Scan Report ---
PROCEDURE: CT ABDOMEN PELVIS W CON TECHNIQUE: Computerized axial tomography of the abdomen and pelvis was performed after the IV inject ion of iodinated nonionic contrast. CT DOSE LENGTH PRODUCT: 3689.9 mGycm HISTORY: elgastric pain with elevated pancreatic enzymes COMPARISONS: None . FINDINGS: Lower Lung hyde: Minimal dependent atelectasis. Lung bases otherwise are clear. Upper Abdomen: Liver density diffusely decreased consistent with fatty infiltration. The liver is ot herwise unremarkable. The gallbladder showed no abnormalities. The pancreas, the adrenal glands and t he spleen are unremarkable. No pancreatic masses are identified. No evidence of pseudocyst. No inflammatory changes are identifie d around the pancreas. Kidneys, Ureters and Urinary bladder: No abnormalities are seen. Retroperitoneum: Atherosclerotic changes are seen in the abdominal aorta. No aneurysm is visualized. Nonspecific subcentimeter lymph nodes are seen in the retroperitoneum. No pathologically enlarged ly mph nodes are identified. Bowel: No abnormalities are seen. No evidence of bowel obstruction ascites or free intraperitoneal g as. Normal-appearing appendix is seen in the right lower quadrant. Small umbilical hernia visualized containing adipose tissue. No herniated loops of bowel are seen. Reproductive organs: Uterus is surgically absent. The ovaries are visualized. There is cystic change visualized in both ovaries, the largest cyst on the right measures 3.5 cm. The largest cyst on the l eft measures 3.5 cm. Other: No acute bone abnormalities are visualized. IMPRESSION: Abnormal cystic change visualized within both ovaries. Cystic areas are seen in both ovaries measurin g up to 3.5 cm. Pelvic ultrasound is suggested. Uterus is surgically absent. Fatty infiltration of the liver. No pancreatic abnormalities are identified. Minimal umbilical hernia present. This document is electronically signed by Anatoly Ambrose MD., August 21 2018 09:43:47 PM ET
[2018-08-21 21:49] LABS: Bacteria,Urine 1+ /HPF (Negative); Bilirubin,Urine NEG (Negative); Blood,Urine SM (Negative); Color,Urine Straw (Yellow); Protein,Urine <15 mg/dL mg/dL (Negative); Urobilinogen,Urine < 2.0 mg/dL (<2.0)
[2018-08-21] MEDS ORDERED: BENADRYL IV ONE (22:20)
[2018-08-21] MEDS ORDERED: TORADOL IV ONE (22:20)
[2018-08-21] MEDS ORDERED: PROTONIX IV ONE (22:42)
[2018-08-21] MEDS ORDERED: BENTYL IM ONE (22:42)
[2018-08-21 23:46] VITALS: BP 100/44
== END 2018-08-21 23:46 | disposition home or self-care (01) ==
LOC: ED 19:26
DX: K27.9 Peptic ulcer, site unspecified, unspecified as acute or chronic, without hemorrhage or perforation (principal); K85.80 Other acute pancreatitis without necrosis or infection; I11.0 Hypertensive heart disease with heart failure; I50.9 Heart failure, unspecified; E11.9 Type 2 diabetes mellitus without complications; K21.9 Gastro-esophageal reflux disease without esophagitis; M19.90 Unspecified osteoarthritis, unspecified site; J44.9 Chronic obstructive pulmonary disease, unspecified
CPT/HCPCS: 36415; 74177; 80048; 80076; 81001; 83690; 85025; 96372; 96374; 96375; 99284; C9113; J0500; J1170; J1200; J1885; J2405; Q9967

== ENCOUNTER 2018-09-02 06:28 | Day surgery (SDC) | payer MEDICAID ==
[2018-09-02] MEDS ORDERED: NACL 0.9% 1000 ML 1,000 ML IV SCH (07:00)
[2018-09-02] MEDS ORDERED: PROAIR IH ONE (07:35)
--- NOTE | 2018-09-02 07:54 | Anesthesia Day of Surgery ---
Anesthesia Day of Surgery - Day of Surgery Patient Examined: Yes Patient H&P Reviewed: Yes Patient is NPO: Yes Beta Blockers: No Cardiac Clearance: No Pulmonary Clearance: No
[2018-09-02] MEDS ORDERED: VERSED ONE (07:57)
[2018-09-02] MEDS ORDERED: XYLOCAINE 2% INFILTRATI ONE (07:57)
[2018-09-02] MEDS ORDERED: DIPRIVAN 10 MG/ML IV ONE (07:57)
[2018-09-02] MEDS ORDERED: NACL 0.9% 100 ML ONE (08:04)
--- NOTE | 2018-09-02 08:09 | Anesthesia Consultation ---
Anesthesia Consult and Med Hx - Airway Anesthetic Teeth Evaluation: Good ROM Head & Neck: Adequate Mental/Hyoid Distance: Adequate Mallampati Class: Class III Intubation Access Assessment: Probably Good - Pulmonary Exam CTA: No (crackles and wheezing- proair puff given preop ) - Cardiac Exam Cardiac Exam: No Murmur - Pre-Operative Health Status ASA Pre-Surgery Classification: ASA3 Proposed Anesthetic Plan: MAC - Pulmonary Hx Smoking: No Hx Asthma: Yes Hx Respiratory Symptoms: No SOB: Yes (very easily. cannot walk up stairs) COPD: Yes Hx Pneumonia: No Hx Sleep Apnea: Yes - Cardiovascular System Hx Hypertension: Yes Hx Coronary Artery Disease: Yes Hx Heart Attack/AMI: Yes () Hx Angina: Yes Hx Percutaneous Transluminal Coronary Angioplasty (PTCA): Yes Hx Cardia Arrhythmia: No Hx Valvular Heart Disease: Yes (mild MR per ECHO 07/2012) Hx Heart Murmur: No - Central Nervous System Hx Neuromuscular Disorder: (diabetic neuropathy in feet) Hx Back Pain: Yes Hx Psychiatric Problems: Yes (schizophrenia) - Gastrointestinal Hx Ulcer: Yes (PEPTIC ULCEER DISEASE) Hx Gastroesophageal Reflux Disease: Yes (severe) - Endocrine Hx Renal Disease: No Hx End Stage Renal Disease: No Hx Liver Disease: Yes (hepatitis a) Hx Insulin Dependent Diabetes: No Hx Non-Insulin Dependent Diabetes: Yes (diet controlled) Hx Thyroid Disease: No - Other Systems Hx Alcohol Use: No Hx Substance Use: No Hx Cancer: Yes Hx Obesity: Yes
[2018-09-02] MEDS ORDERED: WATER FOR IRRIG STERILE IR ONE (08:15)
--- NOTE | 2018-09-02 08:15 | Operative Report ---
Operative Report Operative Report: DATE OF SERVICE: 09/02/18 SURGEON: Billy Ruffin MD EGD with biopsy REPORT PREOPERATIVE DIAGNOSIS and POSTOPERATIVE DIAGNOSIS: Epigastric abdominal pain, history PUD ESTIMATED BLOOD LOSS: minimal DESCRIPTION OF PROCEDURE: A high-resolution EGD scope was passed through the oropharynx, esophagus, stomach, and second portion of duodenum. The scope was carefully withdrawn. Retroflexion was performed in the stomach. At the end of the procedure, the scope was cleaned using normal technique. Vital signs monitored continuously throughout. SEDATION: Provided by Anesthesiology Services. COMPLICATIONS: None. FINDINGS: * No gross lesions in the entire duodenum * Severe gastritis in the gastric antrum with multiple superficial scattered ulcers from 1-3mm in diameter, no active bleeding but there was a small amount of adherant heme. Biopsies were taken to rule out H. Pylori infection. A total of 6 biopsies were taken, 2 from the antrum, 1 from the incisura, 2 from the body. * Z line regular and located at 43cm from the incisors * No gross lesions in the esophagus * Remainder of the exam was normal RECOMMENDATIONS: * Patient will continue Carafate, and I will discuss with the patient to ensure she is not consuming NSAIDs, and I will ensure she is taking at least daily PPI. * Given her pain is out of proportion of the small ulcers present it is reasonable to proceed with the CT scan that was ordered to evaluate for other intra-abdominal pathology * Follow up pathology results, though if patient does have H Pylori may be challenging to treat given extensive allergies * Return to clinic with Junior Arcos in 2-4 weeks for follow up
[2018-09-02 08:39] VITALS: BP 96/68
== END 2018-09-02 08:58 | disposition home or self-care (01) ==
LOC: GIO 06:28
PROVIDERS: ATTEND Nurse Practitioner
DX: K29.50 Unspecified chronic gastritis without bleeding (principal); J44.9 Chronic obstructive pulmonary disease, unspecified; E11.9 Type 2 diabetes mellitus without complications; I11.0 Hypertensive heart disease with heart failure; I50.9 Heart failure, unspecified; G47.30 Sleep apnea, unspecified; F31.9 Bipolar disorder, unspecified; I25.10 Atherosclerotic heart disease of native coronary artery without angina pectoris; K21.9 Gastro-esophageal reflux disease without esophagitis; M19.90 Unspecified osteoarthritis, unspecified site; E66.9 Obesity, unspecified; Z91.81 History of falling; Z88.6 Allergy status to analgesic agent; Z91.041 Radiographic dye allergy status; Z88.2 Allergy status to sulfonamides; Z91.013 Allergy to seafood; Z91.018 Allergy to other foods; Z79.899 Other long term (current) drug therapy; Z79.82 Long term (current) use of aspirin; Z87.898 Personal history of other specified conditions; Z95.5 Presence of coronary angioplasty implant and graft; Z98.890 Other specified postprocedural states; Z85.038 Personal history of other malignant neoplasm of large intestine; Z68.45 Body mass index [BMI] 70 or greater, adult; Z98.51 Tubal ligation status; Z90.710 Acquired absence of both cervix and uterus; Z82.49 Family history of ischemic heart disease and other diseases of the circulatory system
CPT/HCPCS: 43239; 82962; 88305; 88342; J2250; J2704; J7030

== ENCOUNTER 2019-04-24 12:49 | Observation (INO) | payer MEDICAID ==
[2019-04-25 07:58] VITALS: BP 113/63
== END 2019-04-25 11:48 | disposition home or self-care (01) ==
LOC: ED 12:49 → 4A 22:05 → INTOOBSV 22:05
PROVIDERS: ADMIT Internal Medicine; ATTEND Internal Medicine
DX: R09.02 Hypoxemia (principal); R06.00 Dyspnea, unspecified; J18.9 Pneumonia, unspecified organism; R07.89 Other chest pain; D72.829 Elevated white blood cell count, unspecified; E11.9 Type 2 diabetes mellitus without complications; J44.9 Chronic obstructive pulmonary disease, unspecified; G47.33 Obstructive sleep apnea (adult) (pediatric); K21.9 Gastro-esophageal reflux disease without esophagitis; F20.9 Schizophrenia, unspecified; F31.9 Bipolar disorder, unspecified; E66.9 Obesity, unspecified; Z68.39 Body mass index [BMI] 39.0-39.9, adult
CPT/HCPCS: 36415; 71045; 71275; 80048; 82962; 83036; 84484; 85025; 87040; 93005; 93010; 94640; 94660; 94760; 96365; 96372; 96375; 96376; 99291; G0378; J1644; J1956; J2270; Q9967